=== PATIENT | male | born 1940 | race Caucasian/White ===

== ENCOUNTER 2016-08-31 10:10 | Day surgery (SDC) | payer OTHER, MEDICARE ==
[~2016-08-31 10:10] MED LIST: Lactated Ringers 1,000 ML IV SCH; ceFAZolin 2 GM in Premix Bag 1 BAG IV ONE
--- NOTE | 2016-08-31 11:42 | PCM.PREANE ---
Preanesthetic Assessment - Anesthesia/Transfusion/Family Hx Anesthesia History: Prior Anesthesia Without Reaction Family History of Anesthesia Reaction: No Transfusion History: No Prior Transfusion(s) - Review of Systems General: No Symptoms Pulmonary: No Symptoms Cardiovascular: No Symptoms Gastrointestinal: No symptoms Neurological: No Symptoms Other: Reports: None - Physical Assessment NPO Status Date: 08/30/16 NPO Status Time: 22:30 O2 Sat by Pulse Oximetry: 97 Respiratory Rate: 16 Vital Signs: Last Vital Signs Temp 36.8 C 08/31/16 10:20 Pulse 60 08/31/16 10:20 Resp 16 08/31/16 10:20 BP 141/66 H 08/31/16 10:20 Pulse Ox 97 08/31/16 10:20 Height: 1.78 m Weight: 103.419 kg ASA Class: 2 Mental Status: Alert & Oriented x3 Dentition: Reports: Normal Dentition Lungs: Clear to auscultation, Normal respiratory effort Cardiovascular: Regular Rate, Regular Rhythm - Allergies Allergies/Adverse Reactions: Allergies Allergy/AdvReac Type Severity Reaction Status Date / Time No Known Allergies Allergy Verified 08/26/16 11:41 - Blood Blood Available: No - Anesthesia Plan Pre-Op Medication Ordered: None - Acknowledgements Anesthesia Type Planned: General Anesthesia Pt an Appropriate Candidate for the Planned Anesthesia: Yes Alternatives and Risks of Anesthesia Discussed w Pt/Guardian: Yes Pt/Guardian Understands and Agrees with Anesthesia Plan: Yes Additional Comments: problem list: htn, glaucoma, GERD, JAQUAN (on CPAP x 1 month), seasonal allergies. PreAnesthesia Questionnaire - Past Health History Medical/Surgical History: Denies Medical/Surgical History HEENT History: Reports: Allergic Rhinitis, Glaucoma Other HEENT History: wears glasses Cardiovascular History: Reports: Hypertension Respiratory History: Reports: None Gastrointestinal History: Reports: None Other Genitourinary History: current bladder tumor Musculoskeletal History: Reports: Fracture Other Musculoskeletal History: hx of fx thumb Neurological History: Reports: None Psychiatric History: Reports: None Endocrine/Metabolic History: Reports: Obesity/BMI 30+ Hematologic History: Reports: None Immunologic History: Reports: None Oncologic (Cancer) History: Reports: None Dermatologic History: Reports: None - Past Surgical History Head Surgeries/Procedures: Reports: None HEENT Surgical History: Reports: None Cardiovascular Surgical History: Reports: None Respiratory Surgical History: Reports: None GI Surgical History: Reports: Appendectomy Male Surgical History: Reports: None Endocrine Surgical History: Reports: None Neurological Surgical History: Reports: None Musculoskeletal Surgical History: Reports: None Oncologic Surgical History: Reports: None Dermatological Surgical History: Reports: None - SUBSTANCE USE Smoking Status *Q: Former Smoker Second Hand Smoke Exposure: No Days Per Week of Alcohol Use: 0 Recreational Drug Use History: No - HOME MEDS Home Medications: Home Meds Ranitidine HCl [Ranitidine] 150 mg PO BEDTIME 09/12/14 [History] Triamterene/Hydrochlorothiazid [Triamterene-HCTZ 37.5-25 MG] 1 each PO DAILY 07/24 [History] amLODIPine [Norvasc] 10 mg PO DAILY 09/12/14 [History] Fish Oil/[place]-3 Fatty Acids [Fish Oil 1,000 MG] 1 gm PO BID 08/26/16 [History] Fluticasone Propionate [Flonase Allergy Relief] 1 spray NASBOTH DAILY 08/26/16 [ History] Latanoprost [Xalatan 0.005% Oph Soln] 1 drop EYEBOTH BEDTIME 08/26/16 [History ] traZODone HCl [Trazodone HCl] 50 mg PO BEDTIME PRN 08/26/16 [History] - CURRENT (IN HOUSE) MEDS Current Meds: Current Medications Lactated Ringer's (Ringers, Lactated) 1,000 mls @ 100 mls/hr IV ASDIRECTED [facility] Last Admin: 08/31/16 10:38 Dose: 100 mls/hr Discontinued Medications Cefazolin Sodium/Dextrose 2 gm (/ Premix) 50 mls @ 100 mls/hr IV ONCALL ONE Stop: 08/31/16 00:34
[2016-08-31] MEDS ORDERED: fentaNYL 250 MCG/5 ML SDV ONE (12:50)
[2016-08-31] MEDS ORDERED: Propofol 200 MG/20 ML SDV ONE (12:50)
[2016-08-31] MEDS ORDERED: Midazolam 1 MG/ML 2 ML SDV ONE (12:50)
[2016-08-31] MEDS ORDERED: Lidocaine 2% 5 ML SDV ONE (12:50)
[2016-08-31] MEDS ORDERED: fentaNYL 100 MCG/2 ML SDV IVPUSH PRN ×2 (14:00→14:58)
[2016-08-31] MEDS ORDERED: Belladonna Alkaloids/Opium 16.2-30 MG Supp RECTAL ONE (15:09)
--- NOTE | 2016-08-31 15:41 | PCM.POSTAN ---
POST ANESTHESIA ASSESSMENT - MENTAL STATUS Mental Status: alert, oriented - RESPIRATORY Respiratory Status: respiratory rate WNL, airway patent - CARDIOVASCULAR CV Status: pulse rate WNL, blood pressure stable - GASTROINTESTINAL GI Status: no symptoms - POST OP HYDRATION Hydration Status: adequate & stable
--- NOTE | 2016-08-31 16:45 | PCM48HPAN ---
Post Anesthesia Note - EVALUATION WITHIN 48HRS OF ANESTHETIC Vital Signs in Normal Range: Yes Patient Participated in Evaluation: Yes Respiratory Function Stable: Yes Airway Patent: Yes Cardiovascular Function Stable: Yes Hydration Status Stable: Yes Pain Control Satisfactory: Yes Nausea and Vomiting Control Satisfactory: Yes Mental Status Recovered: Yes
[2016-08-31 17:10] VITALS: BP 138/70
--- NOTE | 2016-08-31 21:36 | OR ---
SURGEON: Herson Guerra M.D. 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 POSTOPERATIVE DIAGNOSIS: Transitional cell carcinoma of the bladder. OPERATION: TURBT. DESCRIPTION OF PROCEDURE: The patient was given general anesthesia, placed in dorsal lithotomy position, prepped and draped in sterile drapes. The 26-Jordanian resectoscope was introduced in the bladder without difficulty. The tumor was resected in its entirety including some of the muscle base. The tumor spread over about 1/4th maybe the circumference of the bladder neck. It was affecting the bladder neck, but mostly behind it on the left side. It extended about 2 cm across in some places. The tumor was resected in its entirety. Specimen was submitted for additional investigation of the muscle. With that done, all bleeding points were fulgurated. All specimen was submitted and an 18-Jordanian Clay catheter was placed in the bladder. Estimated blood loss under 50 mL. PLAN: He will be sent home. He was instructed to remove the catheter in 3 days. I will see him again in one week. VU / LESLIE /[id number]
== END 2016-08-31 16:27 | disposition home or self-care (01) ==
LOC: MW.SDS 10:10
PROVIDERS: ATTEND Urology
DX: C67.9 Malignant neoplasm of bladder, unspecified (principal)
CPT/HCPCS: 52235; A9270; J2250; J3010; J7120; 00912; 88305; 88307; J2704

== ENCOUNTER 2017-02-25 08:33 | Day surgery (SDC) | payer MEDICARE, BC, OTHER ==
[~2017-02-25 08:33] MED LIST changes: +Bupivacaine 25%/EPINEPHrine/PF 30 ML ONE; +Dexamethasone/Tobramycin 0.1-0.3% Ophth Oint 3.5 GM Tube ONE; -Lactated Ringers 1,000 ML IV SCH; +Tetracaine 0.5% Ophth Soln 15 ML Bottle ONE; -ceFAZolin 2 GM in Premix Bag 1 BAG IV ONE
[2017-02-25] MEDS ORDERED: Bupivacaine 0.25%/EPINEPHrine 1:200,000 10 ML SDV INJECT ONE (09:00)
[2017-02-25] MEDS ORDERED: Dexamethasone/Tobramycin 0.1-0.3% Ophth Susp 2.5 ML Bottle EYEBOTH SCH (09:00)
[2017-02-25] MEDS ORDERED: Lactated Ringers 1,000 ML IV SCH (09:00)
[2017-02-25] MEDS ORDERED: ceFAZolin 2 GM in Premix Bag 1 BAG IV ONE (09:00)
--- NOTE | 2017-02-25 09:12 | PCM.PREANE ---
Preanesthetic Assessment - Anesthesia/Transfusion/Family Hx Anesthesia History: Prior Anesthesia Without Reaction Transfusion History: No Prior Transfusion(s) - Review of Systems General: No Symptoms Pulmonary: No Symptoms Cardiovascular: No Symptoms Gastrointestinal: No Symptoms Neurological: No Symptoms Other: Reports: None - Physical Assessment NPO Status Date: 02/25/17 NPO Status Time: 00:01 Height: 5 ft 10 in Weight: 102.058 kg ASA Class: 2 Mental Status: Alert & Oriented x3 Airway Class: Mallampati = 2 Dentition: Reports: Normal Dentition Thyro-Mental Finger Breadths: 3 Mouth Opening Finger Breadths: 3 ROM/Head Extension: Full Lungs: Clear to Auscultation, Normal Respiratory Effort Cardiovascular: Regular Rate, Regular Rhythm - Allergies Allergies/Adverse Reactions: Allergies Allergy/AdvReac Type Severity Reaction Status Date / Time No Known Allergies Allergy Verified 08/26/16 11:41 - Acknowledgements Anesthesia Type Planned: General Anesthesia, MAC Pt an Appropriate Candidate for the Planned Anesthesia: Yes Alternatives and Risks of Anesthesia Discussed w Pt/Guardian: Yes Pt/Guardian Understands and Agrees with Anesthesia Plan: Yes PreAnesthesia Questionnaire - Past Health History Medical/Surgical History: Denies Medical/Surgical History HEENT History: Reports: Allergic Rhinitis, Glaucoma Other HEENT History: wears glasses Cardiovascular History: Reports: Hypertension Respiratory History: Reports: Sleep Apnea Other Respiratory History: does not use CPAP Gastrointestinal History: Reports: GERD Other Genitourinary History: hx bladder cancer Musculoskeletal History: Reports: Fracture Other Musculoskeletal History: hx of fx thumb, left shoulder pain Neurological History: Reports: None Psychiatric History: Reports: None Endocrine/Metabolic History: Reports: Obesity/BMI 30+ Hematologic History: Reports: None Immunologic History: Reports: None Oncologic (Cancer) History: Reports: Bladder Dermatologic History: Reports: None - Past Surgical History Head Surgeries/Procedures: Reports: None HEENT Surgical History: Reports: None Cardiovascular Surgical History: Reports: None Respiratory Surgical History: Reports: None GI Surgical History: Reports: Appendectomy Male Surgical History: Reports: TURBT-Transurethral Resection of Bladder Tumor Endocrine Surgical History: Reports: None Neurological Surgical History: Reports: None Musculoskeletal Surgical History: Reports: None Oncologic Surgical History: Reports: None Dermatological Surgical History: Reports: None - SUBSTANCE USE Smoking Status *Q: Former Smoker Second Hand Smoke Exposure: No Days Per Week of Alcohol Use: 0 Recreational Drug Use History: No - HOME MEDS Home Medications: Home Meds Ranitidine HCl [Ranitidine] 150 mg PO BEDTIME 09/12/14 [History] Triamterene/Hydrochlorothiazid [Triamterene-HCTZ 37.5-25 MG] 1 each PO DAILY 07/24 [History] amLODIPine [Norvasc] 10 mg PO DAILY 09/12/14 [History] Fish Oil/[place]-3 Fatty Acids [Fish Oil 1,000 MG] 2 tab PO BID 08/26/16 [History] Latanoprost [Xalatan 0.005% Ophth Soln] 1 drop EYEBOTH BEDTIME 08/26/16 [History ] traZODone HCl [Trazodone HCl] 0.5 tab PO BEDTIME 08/26/16 [History] - CURRENT (IN HOUSE) MEDS Current Meds: Current Medications Cefazolin Sodium/Dextrose 2 gm (/ Premix) 50 mls @ 100 mls/hr IV ONETIME ONE Stop: 02/25/17 09:29 Lactated Ringer's (Ringers, Lactated) 1,000 mls @ 125 mls/hr IV ASDIRECTED [facility] Tobramycin/Dexamethasone (Tobradex Ophth Susp) 2 ml EYEBOTH Q4H YAJAIRA Discontinued Medications Bupivacaine HCl/Epinephrine Bitart (Marcaine 0.25%/Epinephrine 1:200,000) 10 ml INJECT ONETIME ONE Stop: 02/25/17 09:01 Bupivacaine HCl/Epinephrine Bitart (Sensorc Mpf 0.25%-Epi 1:[id number]) Confirm Administered Dose 30 mls @ as directed .ROUTE .STK-MED ONE Stop: 02/25/17 07:17 Tetracaine (Tetracaine 0.5% Ophth Soln) Confirm Administered Dose 15 ml .ROUTE .STK-MED ONE Stop: 02/25/17 08:22 Tobramycin/Dexamethasone (Tobradex Ophth Oint) Confirm Administered Dose 3.5 gm .ROUTE .STK-MED ONE Stop: 02/25/17 08:22
[2017-02-25] MEDS ORDERED: Propofol 200 MG/20 ML SDV ONE ×2 (10:14→10:15)
[2017-02-25] MEDS ORDERED: Lidocaine 2% 5 ML SDV ONE (10:15)
[2017-02-25] MEDS ORDERED: fentaNYL 100 MCG/2 ML SDV ONE (10:15)
[2017-02-25] MEDS ORDERED: Midazolam 1 MG/ML 2 ML SDV ONE (10:16)
[2017-02-25] MEDS ORDERED: fentaNYL 100 MCG/2 ML SDV IVPUSH PRN (11:31)
--- NOTE | 2017-02-25 11:33 | PCM.POSTAN ---
POST ANESTHESIA ASSESSMENT - MENTAL STATUS Mental Status: Alert, Oriented - VITAL SIGNS Pulse Rate: 71 SaO2: 95 (room air) Resp Rate: 18 Blood Pressure: 119/86 - RESPIRATORY Respiratory Status: Respiratory Rate WNL, Airway Patent, O2 Saturation Stable - CARDIOVASCULAR CV Status: Pulse Rate WNL, Blood Pressure Stable - GASTROINTESTINAL GI Status: No Symptoms - PAIN Pain Score: 0 - POST OP HYDRATION Hydration Status: Adequate & Stable
[2017-02-25 13:16] VITALS: BP 143/78
--- NOTE | 2017-03-01 16:52 | PCM.OPNOTE ---
- General Post-Op/Procedure Note Date of Surgery/Procedure: 02/25/17 Operative Procedure(s): bilateral blepharoplasties for excess skin Pre Op Diagnosis: dermatochalasis bilateral upper lids Post-Op Diagnosis: Same Anesthesia Technique: Local, MAC Primary Surgeon: Yumiko Jones Webbing Tacker: Rachel Oh Complications: None Condition: Good Free Text/Narrative:: [id number]
--- NOTE | 2017-03-01 20:59 | OR ---
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 PROCEDURE: Bilateral blepharoplasties for excess skin weighing down lids. PLUNKET NURSE: MEDINA Coon. INDICATIONS: Mr. Buckley is a 77-year-old male with bilateral upper lid dermatochalasis. Risks and benefits of excision of the excess skin were discussed with him. He has very good levator function on excursion. Risks were including, but not limited to, bleeding, infection, damage to underlying or overlying structures, possible need for future interventions, possible scarring. He was in agreement to proceed. PROCEDURE IN DETAIL: After informed consent was obtained and placed on the chart, the patient was brought to the operating theater and laid in the supine position. After adequate local MAC anesthetic was obtained, he was prepped and draped, and time- out was completed to confirm side and site. Once adequately confirmed, attention was then paid to marking of the upper eyelid skin excess. He had a significant amount of excess skin and 1.5 cm was removed bilaterally. Once adequately removed, marked, and pinch test had been completed to ensure appropriate tension upon removal. The area was anesthetized with 0.25% Marcaine with epinephrine in a field block. Once adequately anesthetized, the area was excised in an ellipse in standard fashion and meticulous hemostasis was obtained. Hemostasis of the underlying musculature for contraction was also completed. Once this was completed, the wound was closed using a deep Monocryl stitch and a running 6-0 Prolene for the skin. Steri-strips was placed. The area was dressed with TobraDex liquid. The patient tolerated the procedure well. All counts and needles were correct at the end of the case. FOLLOWUP INSTRUCTIONS: The patient will see us in clinic in 7 to 10 days for suture removal, sooner if there are any problems, questions, or concerns. HEGGTFELIX / LESLIE /[id number]
== END 2017-02-25 12:25 | disposition home or self-care (01) ==
LOC: MW.SDS 08:33
PROVIDERS: ATTEND Plastic Surgery
DX: H02.831 Dermatochalasis of right upper eyelid (principal); H02.834 Dermatochalasis of left upper eyelid; I10 Essential (primary) hypertension; G47.30 Sleep apnea, unspecified; K21.9 Gastro-esophageal reflux disease without esophagitis; E66.9 Obesity, unspecified; Z68.32 Body mass index [BMI] 32.0-32.9, adult; Z98.890 Other specified postprocedural states; Z85.51 Personal history of malignant neoplasm of bladder; Z87.891 Personal history of nicotine dependence; Z79.51 Long term (current) use of inhaled steroids; Z79.899 Other long term (current) drug therapy
CPT/HCPCS: 15823; 93005; A9270; J2250; J3010; J7120; 00103; J2704

== ENCOUNTER 2017-05-03 07:54 | Day surgery (SDC) | payer OTHER, MEDICARE, BC ==
[~2017-05-03 07:54] MED LIST changes: -Bupivacaine 25%/EPINEPHrine/PF 30 ML ONE; -Dexamethasone/Tobramycin 0.1-0.3% Ophth Oint 3.5 GM Tube ONE; +Lactated Ringers 1,000 ML IV SCH; +Sodium Chloride 0.9% 10 ML Syringe FLUSH PRN; +Sodium Chloride 0.9% 2.5 ML Syringe FLUSH PRN; -Tetracaine 0.5% Ophth Soln 15 ML Bottle ONE; +ceFAZolin 2 GM in Premix Bag 1 BAG IV ONE
--- NOTE | 2017-05-03 08:22 | PCM.PREANE ---
Preanesthetic Assessment - Anesthesia/Transfusion/Family Hx Anesthesia History: Prior Anesthesia Without Reaction Family History of Anesthesia Reaction: No Transfusion History: No Prior Transfusion(s) - Review of Systems General: No Symptoms Pulmonary: No Symptoms Cardiovascular: No Symptoms Gastrointestinal: No Symptoms Neurological: No Symptoms Other: Reports: None - Physical Assessment NPO Status Date: 05/02/17 Height: 1.78 m Weight: 107.048 kg ASA Class: 2 Mental Status: Alert & Oriented x3 Airway Class: Mallampati = 1 Dentition: Reports: [place](s) ROM/Head Extension: Full Lungs: Clear to Auscultation, Normal Respiratory Effort Cardiovascular: Regular Rate, Regular Rhythm - Allergies Allergies/Adverse Reactions: Allergies Allergy/AdvReac Type Severity Reaction Status Date / Time No Known Allergies Allergy Verified 08/26/16 11:41 - Anesthesia Plan Pre-Op Medication Ordered: None - Acknowledgements Anesthesia Type Planned: General Anesthesia Pt an Appropriate Candidate for the Planned Anesthesia: Yes Alternatives and Risks of Anesthesia Discussed w Pt/Guardian: Yes Pt/Guardian Understands and Agrees with Anesthesia Plan: Yes Additional Comments: PMH: significant GERD, HTN, Glaucoma PreAnesthesia Questionnaire - Past Health History Medical/Surgical History: Denies Medical/Surgical History HEENT History: Reports: Allergic Rhinitis, Glaucoma Other HEENT History: wears glasses Cardiovascular History: Reports: Hypertension Respiratory History: Reports: Sleep Apnea Other Respiratory History: does not use CPAP Gastrointestinal History: Reports: GERD Genitourinary History: Reports: Other (See Below) Other Genitourinary History: hx bladder cancer Musculoskeletal History: Reports: Arthritis, Fracture Other Musculoskeletal History: hx of fx thumb, left shoulder pain Neurological History: Reports: None Psychiatric History: Reports: None Endocrine/Metabolic History: Reports: Obesity/BMI 30+ Hematologic History: Reports: None Immunologic History: Reports: None Oncologic (Cancer) History: Reports: Bladder Dermatologic History: Reports: None - Past Surgical History Head Surgeries/Procedures: Reports: None HEENT Surgical History: Reports: None, Cataract Surgery Other HEENT Surgeries/Procedures: hx blepharoplasty and cataract surgery Cardiovascular Surgical History: Reports: None Respiratory Surgical History: Reports: None GI Surgical History: Reports: Appendectomy Male Surgical History: Reports: TURBT-Transurethral Resection of Bladder Tumor Endocrine Surgical History: Reports: None Neurological Surgical History: Reports: None Musculoskeletal Surgical History: Reports: None Oncologic Surgical History: Reports: None Dermatological Surgical History: Reports: None - SUBSTANCE USE Smoking Status *Q: Former Smoker Second Hand Smoke Exposure: No Days Per Week of Alcohol Use: 0 Recreational Drug Use History: No - HOME MEDS Home Medications: Home Meds Ranitidine HCl [Ranitidine] 150 mg PO BEDTIME 09/12/14 [History] Triamterene/Hydrochlorothiazid [Triamterene-HCTZ 37.5-25 MG] 1 each PO DAILY 07/24 [History] amLODIPine [Norvasc] 10 mg PO DAILY 09/12/14 [History] Fish Oil/[place]-3 Fatty Acids [Fish Oil 1,000 MG] 2 tab PO BID 08/26/16 [History] Latanoprost [Xalatan 0.005% Oph Soln] 1 drop EYEBOTH BEDTIME 08/26/16 [History ] traZODone HCl [Trazodone HCl] 0.5 tab PO BEDTIME 08/26/16 [History] - CURRENT (IN HOUSE) MEDS Current Meds: Current Medications Lactated Ringer's (Ringers, Lactated) 1,000 mls @ 100 mls/hr IV ASDIRECTED [facility]A Sodium Chloride (Saline Flush) 10 ml FLUSH ASDIRECTED PRN PRN Reason: Keep Vein Open Sodium Chloride (Saline Flush) 2.5 ml FLUSH ASDIRECTED PRN PRN Reason: Keep Vein Open Discontinued Medications Cefazolin Sodium/Dextrose 2 gm (/ Premix) 50 mls @ 100 mls/hr IV ONETIME ONE Stop: 05/03/17 07:29
[2017-05-03] MEDS ORDERED: Propofol 200 MG/20 ML SDV ONE ×2 (09:43→09:52)
[2017-05-03] MEDS ORDERED: Midazolam 1 MG/ML 2 ML SDV ONE (09:43)
[2017-05-03] MEDS ORDERED: Lidocaine 2% 5 ML SDV ONE (09:43)
[2017-05-03] MEDS ORDERED: fentaNYL 250 MCG/5 ML SDV ONE (09:43)
[2017-05-03] MEDS ORDERED: Ketorolac 30 MG/ML SDV ONE (09:44)
[2017-05-03] MEDS ORDERED: Ondansetron 4 MG/2 ML SDV ONE (09:44)
[2017-05-03] MEDS ORDERED: fentaNYL 100 MCG/2 ML SDV IVPUSH PRN (11:00)
--- NOTE | 2017-05-03 12:20 | PCM.POSTAN ---
POST ANESTHESIA ASSESSMENT - MENTAL STATUS Mental Status: Alert, Oriented - RESPIRATORY Respiratory Status: Respiratory Rate WNL, Airway Patent, O2 Saturation Stable - CARDIOVASCULAR CV Status: Pulse Rate WNL, Blood Pressure Stable - GASTROINTESTINAL GI Status: No Symptoms - POST OP HYDRATION Hydration Status: Adequate & Stable
[2017-05-03 12:35] VITALS: BP 154/73
--- NOTE | 2017-05-12 21:17 | OR ---
SURGEON: Herson Guerra M.D. DATE OF PROCEDURE: 05/03/2017 PREOPERATIVE DIAGNOSIS: Multiple papillary bladder tumors. POSTOPERATIVE DIAGNOSIS: Multiple papillary bladder tumors. OPERATION PERFORMED: TURBT. DESCRIPTION OF PROCEDURE: The patient was given general anesthesia, was placed in dorsal lithotomy position, prepped and draped in sterile drapes. A #26 resectoscope was introduced in the bladder without difficulty. All the tumors were resected, and the specimen was submitted. The patient tolerated the procedure well and was moved to recovery room in good condition. VU / LESLIE /[id number]
--- NOTE | 2017-06-14 14:09 | OR ---
SURGEON: Herson Guerra M.D. DATE OF PROCEDURE: 05/03/2017 ADDENDUM: The size of the tumor was large, and the margins were clear. VU / LESLIE /[id number]
== END 2017-05-03 12:49 | disposition home or self-care (01) ==
LOC: MW.SDS 07:54
PROVIDERS: ATTEND Urology
DX: D41.4 Neoplasm of uncertain behavior of bladder (principal); I10 Essential (primary) hypertension; Z79.899 Other long term (current) drug therapy; Z90.49 Acquired absence of other specified parts of digestive tract
CPT/HCPCS: 52240; J0690; J1885; J2250; J2405; J3010; 00912; J2704

== ENCOUNTER 2017-08-04 08:42 | Day surgery (SDC) | payer MEDICARE, BC, OTHER ==
[2017-08-04] MEDS ORDERED: Heparin Sodium 100 Units/ML 3 ML Syringe IVPUSH ONE (08:43)
--- NOTE | 2017-08-04 09:23 | PCM.PREANE ---
Preanesthetic Assessment - Anesthesia/Transfusion/Family Hx Anesthesia History: Prior Anesthesia Without Reaction Family History of Anesthesia Reaction: No Transfusion History: No Prior Transfusion(s) - Review of Systems General: No Symptoms Pulmonary: No Symptoms Cardiovascular: No Symptoms Gastrointestinal: No Symptoms Neurological: No Symptoms Other: Reports: None - Physical Assessment NPO Status Date: 08/03/17 NPO Status Time: 20:00 O2 Sat by Pulse Oximetry: 95 Respiratory Rate: 16 Vital Signs: Last Vital Signs Temp 36.1 C 08/04/17 08:50 Pulse 98 08/04/17 08:50 Resp 16 08/04/17 08:50 BP 164/91 H 08/04/17 08:50 Pulse Ox 95 08/04/17 08:50 Height: 1.75 m Weight: 97.976 kg ASA Class: 2 Mental Status: Alert & Oriented x3 Dentition: Reports: Normal Dentition ROM/Head Extension: Full Lungs: Clear to Auscultation, Normal Respiratory Effort Cardiovascular: Regular Rate, Regular Rhythm - Allergies Allergies/Adverse Reactions: Allergies Allergy/AdvReac Type Severity Reaction Status Date / Time No Known Allergies Allergy Verified 08/02/17 10:18 - Anesthesia Plan Pre-Op Medication Ordered: None - Acknowledgements Anesthesia Type Planned: MAC Pt an Appropriate Candidate for the Planned Anesthesia: Yes Alternatives and Risks of Anesthesia Discussed w Pt/Guardian: Yes Pt/Guardian Understands and Agrees with Anesthesia Plan: Yes PreAnesthesia Questionnaire - Past Health History Medical/Surgical History: Denies Medical/Surgical History HEENT History: Reports: Cataract, Glaucoma Other HEENT History: wears glasses Cardiovascular History: Reports: Hypertension Respiratory History: Reports: Sleep Apnea Other Respiratory History: does not use CPAP Gastrointestinal History: Reports: GERD Genitourinary History: Reports: Other (See Below) Other Genitourinary History: hx of bladder tumor Musculoskeletal History: Reports: Arthritis, Fracture Other Musculoskeletal History: hx of fx thumb, left shoulder pain Neurological History: Reports: None Psychiatric History: Reports: None Endocrine/Metabolic History: Reports: Obesity/BMI 30+ Hematologic History: Reports: None Immunologic History: Reports: None Oncologic (Cancer) History: Reports: Bladder Dermatologic History: Reports: None - Past Surgical History Head Surgeries/Procedures: Reports: None HEENT Surgical History: Reports: Cataract Surgery, Other (See Below) Other HEENT Surgeries/Procedures: hx of Blepharoplasty Cardiovascular Surgical History: Reports: None Respiratory Surgical History: Reports: None GI Surgical History: Reports: Appendectomy Male Surgical History: Reports: TURBT-Transurethral Resection of Bladder Tumor Endocrine Surgical History: Reports: None Neurological Surgical History: Reports: None Musculoskeletal Surgical History: Reports: None Oncologic Surgical History: Reports: None Dermatological Surgical History: Reports: None - SUBSTANCE USE Smoking Status *Q: Former Smoker Tobacco Use Within Last Twelve Months: No Second Hand Smoke Exposure: No Days Per Week of Alcohol Use: 0 Recreational Drug Use History: No - HOME MEDS Home Medications: Home Meds Ranitidine HCl [Ranitidine] 150 mg PO BEDTIME 09/12/14 [History] Triamterene/Hydrochlorothiazid [Triamterene-HCTZ 37.5-25 MG] 1 each PO DAILY 07/24 [History] amLODIPine [Norvasc] 10 mg PO DAILY 09/12/14 [History] Fish Oil/[place]-3 Fatty Acids [Fish Oil 1,000 MG] 1 tab PO BID 08/26/16 [History] Latanoprost [Xalatan 0.005% Ophth Soln] 1 drop EYEBOTH BEDTIME 08/26/16 [History ] traZODone HCl [Trazodone HCl] 25 mg PO BEDTIME PRN 08/26/16 [History] - CURRENT (IN HOUSE) MEDS Current Meds: Current Medications Lactated Ringer's (Ringers, Lactated) 1,000 mls @ 125 mls/hr IV ASDIRECTED [facility] Sodium Chloride (Saline Flush) 10 ml FLUSH ASDIRECTED PRN PRN Reason: Keep Vein Open Sodium Chloride (Saline Flush) 2.5 ml FLUSH ASDIRECTED PRN PRN Reason: Keep Vein Open Discontinued Medications Cefazolin Sodium/Dextrose 2 gm (/ Premix) 50 mls @ 100 mls/hr IV ONETIME ONE Stop: 08/03/17 09:19
[2017-08-04] MEDS ORDERED: Propofol 200 MG/20 ML SDV ONE (09:27)
[2017-08-04] MEDS ORDERED: Lidocaine 2% 5 ML SDV ONE (09:27)
[2017-08-04] MEDS ORDERED: fentaNYL 100 MCG/2 ML SDV ONE (09:27)
[2017-08-04] MEDS ORDERED: Midazolam 1 MG/ML 2 ML SDV ONE (09:27)
[2017-08-04] MEDS ORDERED: Lidocaine 1% 20 ML MDV ONE (10:21)
[2017-08-04] MEDS ORDERED: Bupivacaine 0.5% 10 ML SDV ONE (10:21)
[2017-08-04] MEDS ORDERED: Iopamidol 408 MG/ML 50 ML SDV ONE (10:22)
[2017-08-04] MEDS ORDERED: ceFAZolin/Dextrose,Iso-Osmotic 2 GM/50 ML Duplex Bag IV ONE (10:28)
[2017-08-04] MEDS ORDERED: fentaNYL 100 MCG/2 ML SDV IVPUSH PRN (11:18)
[2017-08-04] MEDS ORDERED: Ondansetron 4 MG/2 ML SDV ONE (11:20)
[2017-08-04] MEDS ORDERED: Ketorolac 30 MG/ML SDV ONE (11:20)
--- NOTE | 2017-08-04 11:42 | PCM.OPNOTE ---
- General Post-Op/Procedure Note Date of Surgery/Procedure: 08/04/17 Operative Procedure(s): Right internal jugular port a cath placement Findings: Right internal jugular port a cath placement Pre Op Diagnosis: Transitional cell carcinoma Post-Op Diagnosis: same Anesthesia Technique: General LMA Primary Surgeon: Carmina Sethi Fluid Replacement, Intraop: 800 EBL in mLs: 10 Condition: Good
--- NOTE | 2017-08-04 12:50 | CR ---
EXAMINATION: Portable chest radiograph. HISTORY: Port-A-Cath placement. FINDINGS: The trachea is midline. The cardiomediastinal silhouette is within normal limits. No pulmonary infilt rates, effusions or pneumothorax. Right-sided portacatheter noted with tip in the distal SVC. Mild le ft basilar atelectasis. Medial left scapular margin is not well identified. IMPRESSION: Right-sided portacatheter in good position.
[2017-08-04 13:05] VITALS: BP 140/71
--- NOTE | 2017-08-04 13:49 | PCM48HPAN ---
Post Anesthesia Note - EVALUATION WITHIN 48HRS OF ANESTHETIC Vital Signs in Normal Range: Yes Patient Participated in Evaluation: Yes Respiratory Function Stable: Yes Airway Patent: Yes Cardiovascular Function Stable: Yes Hydration Status Stable: Yes Pain Control Satisfactory: Yes Nausea and Vomiting Control Satisfactory: Yes Mental Status Recovered: Yes Resp Rate: 16
--- NOTE | 2017-08-04 15:05 | OR ---
SURGEON: RIVER CONCEPCION MD DATE OF PROCEDURE: 08/04/2017 PREOPERATIVE DIAGNOSIS: Transitional cell carcinoma of the bladder. POSTOPERATIVE DIAGNOSIS: Transitional cell carcinoma of the bladder. PROCEDURE PERFORMED: Right internal jugular Port-A-Cath placement. ANESTHESIA: General LMA. FLUIDS: 800 mL crystalloid. ESTIMATED BLOOD LOSS: 10 mL. FINDINGS: Right internal jugular Port-A-Cath placement. COMPLICATIONS: None. INDICATIONS: The patient is a 77-year-old male, who presents with transitional cell carcinoma. He has undergone surgery for this and is now undergoing radiation and chemotherapy treatment. He is in need of permanent access. We discussed the need for a Port-A-Cath. I explained the procedure, expected perioperative course, and risks including bleeding, infection, damage to surrounding structures including hemothorax, pneumothorax, or hemopericardium. The patient verbalized understanding and wishes to proceed. PROCEDURE IN DETAIL: The patient was brought into the operating room and placed on the OR table in supine position. A time-out was completed verifying the patient's name, age, date of , allergies, and procedure to be performed. General LMA anesthesia was induced. An ultrasound probe was used to verify the vascular anatomy of the right side of the neck. I identified the right internal jugular vein and the associated right carotid artery. The neck and right chest were prepped and draped in usual standard fashion. I then reverified my anatomy using a sterile ultrasound probe. The area overlying the right internal jugular vein was anesthetized with 1% lidocaine plain. I anesthetized the catheter tract and port site on the anterior right chest as well. A large bore needle was then placed under direct visualization into the right internal jugular vein. A brisk return of venous blood was noted. A guidewire was then placed down the needle into the superior vena cava. The needle was then removed, and the placement of the guidewire was verified using x-ray. I then turned my attention to the right anterior chest. A 3 cm incision was made along the right anterior chest wall 2 fingerbreadths below the lateral clavicle. Cautery was used to dissect down the level of chest wall and create a subcutaneous pocket. Hemostasis was achieved with cautery. The catheter tubing was then tunneled from the subcutaneous port site up to the insertion site of the guidewire on the right neck. A vascular sheath and dilator were then placed over the guidewire and then dilated over the guidewire under fluoroscopic guidance. Once this was in an appropriate position, the internal dilator and guidewire were removed leaving the vascular sheath in place. The catheter tubing was then placed through the vascular sheath into the superior vena cava. The vascular sheath was then peeled away. Fluoroscopic guidance was used to ensure that the tip of the catheter was in the SVC. The catheter tubing was aspirated and a good return of venous blood was noted. The catheter tubing was then flushed with injectable saline. The catheter tubing was then trimmed to size and placed on the Port-A-Cath device. The Port-A-Cath was then placed in the subcutaneous pocket and secured using 3-0 Prolene stitches on either side of it. The Port-A-Cath device was then aspirated with a good return of venous blood. It was locked with 3 mL of heparinized saline. The site was then closed with a running 3-0 Vicryl stitch in the subcutaneous fat layer and the skin was closed with a running 4-0 Monocryl stitch. Steri-Strips and sterile dressings were applied. The neck insertion site was then closed with an interrupted 4-0 Monocryl. Steri-Strips and sterile dressings were applied. The patient tolerated the procedure well and was taken to PACU in stable condition. A postoperative chest x-ray showed good placement. SE NELSON /[id number] MTDSharri
== END 2017-08-04 13:15 | disposition home or self-care (01) ==
LOC: MW.SDS 08:42
PROVIDERS: ATTEND Surgery
DX: C67.9 Malignant neoplasm of bladder, unspecified (principal); J30.9 Allergic rhinitis, unspecified; M19.012 Primary osteoarthritis, left shoulder; I10 Essential (primary) hypertension; G47.30 Sleep apnea, unspecified; K21.9 Gastro-esophageal reflux disease without esophagitis; E66.9 Obesity, unspecified; Z68.31 Body mass index [BMI] 31.0-31.9, adult; Z98.890 Other specified postprocedural states; Z79.899 Other long term (current) drug therapy; Z90.49 Acquired absence of other specified parts of digestive tract; Z87.891 Personal history of nicotine dependence
CPT/HCPCS: 36561; 71045; 76000; J0690; J1642; J2250; J2405; J3010; J7120; J1885; J2704; Q9966

== ENCOUNTER 2017-08-19 23:55 | Emergency (ER) | payer MEDICARE, BC ==
--- NOTE | 2017-08-20 | EDM.PDOC ---
ED HPI GENERAL MEDICAL PROBLEM - General Stated Complaint: POSSIBLE DEHYDRATION Time Seen by Provider: 08/19/17 23:55 - History of Present Illness INITIAL COMMENTS - FREE TEXT/NARRATIVE: HISTORY AND PHYSICAL: History of present illness: The patient is a 69-year-old male who arrives by EMS with a history of hypertension and transitional cell carcinoma of the bladder was followed in our oncology clinic and called for transport here because of feeling like he is dehydrated. The patient tells me he has had nausea and increased phlegm in his mouth which he thinks is thick throughout the day today since he had his platelet transfusion this morning. He says he has had intermittent nausea and some dry heaves but no vomiting. He says he has not been able to eat or drink anything throughout the day today which is why he thinks he is dehydrated. He had a low-grade temperature at home of 100.2 but he has not had a cough chest pain or shortness of breath and no abdominal pain diarrhea or urinary complaints. He tells me that for his cancer he has had 2 bladder surgeries but they were not able to completely remove the tumor and he is just started radiation therapy to his left scapula as well as chemotherapy but he is unsure of the last time he had chemotherapy. The patient tells me he is very thirsty but he says it hurts when he swallows and he has the phlegm which is why he is not swallowing fluids or food. He says that the discomfort with swallowing and the phlegm only started today. When asked him about his progressive decline in hemoglobin said that they did not tell him he would need to get another transfusion. The patient says that he had these symptoms when he was at the oncology center today but they were not as bad and they were aware of this. The patient has had blood work here at our facility on August 10, August 15, August 16, and August 18 which showed a progressive decline in his hemoglobin from 14.5to 9.5 and his platelets from 201 to 15. The patient says he was contacted earlier today to come in and receive a transfusion of platelets which I see documented in the computer. Patient also had a low potassium on 15 August at 2.4 but corrected per labs from yesterday. Patient tells nursing that he had a fever while he was in the oncology center and was given medication for that. Patient also had recent imaging performed July [address] scan of the chest abdomen and pelvis and a bone scan which I have reviewed. It demonstrates extensive metastases to the left scapular as well as a tiny focus in the left lateral 11th rib but no other masses appreciated. Please note that the patient is currently on Diflucan therapy but he is not clear as to why he was placed on that. Review of systems: As per history of present illness and below otherwise all systems reviewed and negative. Past medical history: As per history of present illness and as reviewed below otherwise noncontributory. Surgical history: As per history of present illness and as reviewed below otherwise noncontributory. Social history: No reported history of drug or alcohol abuse. Family history: As per history of present illness and as reviewed below otherwise noncontributory. Physical exam: General: Well-developed well-nourished overweight male who is nontoxic and speaking clearly but intermittently is dry heaving on my evaluation. Most of what he is producing looks saliva or phlegm-like and is clear and slightly white in color and mucousy in character. His speech is intact and it is not muffled hoarse and he is not breathless he is not drooling HEENT: Atraumatic, normocephalic, pupils reactive, negative for conjunctival pallor or scleral icterus, mucous membranes moist, throat clear and there is no erythema swelling or abnormality seen in the posterior oropharynx and oral cavity, uvula is midline, there is no cervical adenopathy or nuchal rigidity,, neck supple, nontender, trachea midline. Lungs: Clear to auscultation, breath sounds equal bilaterally, chest nontender. No work of breathing stridor or wheezing appreciated and good air exchange. At the posterior left scapular area there is diffuse erythema and a small area of excoriation consistent with his recent radiation therapy to this region Heart: S1S2, regular, negative for clicks, rubs, or JVD. Abdomen: Soft, nondistended, nontender. Negative for masses or hepatosplenomegaly. Negative for costovertebral tenderness. Bowel sounds are hypoactive and there is no tympany on percussion Pelvis: Stable nontender. Genitourinary: Deferred. Rectal: Deferred. Extremities: Atraumatic, negative for cords or calf pain. Neurovascular unremarkable. Full range of motion without defects or deficits Neuro: Awake, alert, oriented. Cranial nerves II through XII unremarkable. Cerebellum unremarkable. Motor and sensory unremarkable throughout. Exam nonfocal. Diagnostics: CBC CMP amylase lipase INR UA urine culture blood cultures 2 lactic acid magnesium level soft tissue neck and chest x-ray Therapeutics: Port access IV fluids Zofran GI cocktail Protonix clindamycin Rocephin Decadron Patient drink the GI cocktail and tolerated it without difficulty. 0203 and 0213: Case was discussed with Dr. Peoples the ENT on-call at [facility] in [place]. I have sent him a picture of the patient's x-ray and he has reviewed it. He does feel like the patient does have a mild case of epiglottitis but he does not feel that there is any airway compromise and he would like me to give Decadron and Rocephin and clindamycin and transfer the patient to [place]. He does not feel that the patient needs to be flown and can go by ground ambulance. I've also discussed this case with Dr. Gaytan in the ER who also accepts the patient I discussed all these findings with the patient and the need for transfer and he is accepting of this. All cultures have been sent off and the patient is currently afebrile and resting comfortably handling his secretions. He is aware of the need for this emergent transfer. It is also noted in his workup that he has a UTI and a urine culture was sent and the [employer] that he is receiving , Rocephin, should cover his UTI. Receiving physicians at [facility] are also aware that I am unable to access the cancer center records to identify when the patient last had chemotherapy. 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 throat Pain Score (Numeric/FACES): 7 - Related Data Allergies Allergy/AdvReac Type Severity Reaction Status Date / Time No Known Allergies Allergy Verified 08/20/17 00:03 Home Meds: Home Meds Triamterene/Hydrochlorothiazid [Triamterene-HCTZ 37.5-25 MG] 1 each PO DAILY 07/24 [History] Fish Oil/[place]-3 Fatty Acids [Fish Oil 1,000 MG] 1 tab PO BID 08/26/16 [History] Latanoprost [Xalatan 0.005% Ophth Soln] 1 drop EYEBOTH BEDTIME 08/26/16 [History ] traZODone HCl [Trazodone HCl] 25 mg PO BEDTIME PRN 08/26/16 [History] Fluconazole [Diflucan] 50 mg PO DAILY 08/20/17 [History] Past Medical History - Past Health History Medical/Surgical History: Denies Medical/Surgical History HEENT History: Reports: Cataract, Glaucoma Other HEENT History: wears glasses Cardiovascular History: Reports: Hypertension Respiratory History: Reports: Sleep Apnea Other Respiratory History: does not use CPAP Gastrointestinal History: Reports: GERD Genitourinary History: Reports: Other (See Below) Other Genitourinary History: hx of bladder tumor Musculoskeletal History: Reports: Arthritis, Fracture Other Musculoskeletal History: hx of fx thumb, left shoulder pain Neurological History: Reports: None Psychiatric History: Reports: None Endocrine/Metabolic History: Reports: Obesity/BMI 30+ Hematologic History: Reports: None Immunologic History: Reports: None Oncologic (Cancer) History: Reports: Bladder Dermatologic History: Reports: None - Past Surgical History Head Surgeries/Procedures: Reports: None HEENT Surgical History: Reports: Cataract Surgery, Other (See Below) Other HEENT Surgeries/Procedures: hx of Blepharoplasty Cardiovascular Surgical History: Reports: None Respiratory Surgical History: Reports: None GI Surgical History: Reports: Appendectomy Male Surgical History: Reports: TURBT-Transurethral Resection of Bladder Tumor Endocrine Surgical History: Reports: None Neurological Surgical History: Reports: None Musculoskeletal Surgical History: Reports: None Oncologic Surgical History: Reports: None Dermatological Surgical History: Reports: None Social & Family History - Caffeine Use Caffeine Use: Reports: Coffee, Soda ED ROS GENERAL - Review of Systems Review Of Systems: ROS reveals no pertinent complaints other than HPI. ED EXAM, GENERAL - Physical Exam Exam: See Below (See dictation) Course - Vital Signs Last Recorded V/S: Last Vital Signs Temp 38.0 C 08/20/17 02:12 Pulse 90 08/20/17 02:12 Resp 18 08/20/17 02:12 BP 121/63 08/20/17 02:12 Pulse Ox 92 L 08/20/17 02:12 - Orders/Labs/Meds Orders: Active Orders 24 hr Category Date Time Status Communication Order [RC] STAT Care 08/20/17 01:35 Active Chest 2V [CR] Stat Exams 08/20/17 00:11 Taken Neck Soft Tissue [CR] Stat Exams 08/20/17 00:11 Taken CULTURE BLOOD [BC] Stat Lab 08/20/17 00:31 Received CULTURE BLOOD [BC] Stat Lab 08/20/17 00:45 Received CULTURE URINE [RM] Stat Lab 08/20/17 01:43 Ordered UA W/MICROSCOPIC [URIN] Stat Lab 08/20/17 01:38 Ordered Clindamycin Phosphate in D5W [Cleocin in D5W] 900 mg Med 08/20/17 02:24 Ordered Premix Bag 1 bag IV ONETIME Sodium Chloride 0.9% [Normal Saline] 1,000 ml Med 08/20/17 01:58 Active IV .Bolus cefTRIAXone [Rocephin in Dextrose,Iso-Osm 2 GM/50 ML] 2 Med 08/20/17 02:24 Ordered gm Premix Bag 1 bag IV ONETIME Blood Culture x2 Reflex Set [OM.PC] Stat Oth 08/20/17 00:11 Ordered Medication Orders Sodium Chloride (Normal Saline) 1,000 mls @ 125 mls/hr IV .Bolus ONE Stop: 08/20/17 09:57 Last Admin: 08/20/17 01:59 Dose: 125 mls/hr Ceftriaxone Sodium/Dextrose 2 (gm/ Premix) 50 mls @ 100 mls/hr IV ONETIME ONE Stop: 08/20/17 02:53 Clindamycin Phosphate 900 mg/ (Premix) 50 mls @ 100 mls/hr IV ONETIME ONE Stop: 08/20/17 02:53 Labs: Laboratory Tests 08/20/17 08/20/17 08/20/17 Range/Units 00:31 00:31 00:31 WBC 0.67 L (4.0-11.0) K/uL RBC 2.86 L (4.50-5.90) M/uL Hgb 8.1 L (13.0-17.0) g/dL Hct 23.7 L (38.0-50.0) % MCV 82.9 (80.0-98.0) fL MCH 28.3 (27.0-32.0) pg MCHC 34.2 (31.0-37.0) g/dL RDW Std Deviation 39.1 (28.0-62.0) fl RDW Coeff of [place] 13 (11.0-15.0) % Plt Count 67 L (150-400) K/uL MPV 10.10 (7.40-12.00) fL Add Manual Diff YES Neutrophils % (Manual) 55 (48.0-80.0) % Band Neutrophils % 1 % Lymphocytes % (Manual) 37 (16.0-40.0) % Monocytes % (Manual) 7 (0.0-15.0) % Nucleated RBC % 0.0 /100WBC Absolute Seg Neuts 0.4 L (1.4-5.7) Band Neutrophils # 0 Lymphocytes # (Manual) 0.2 L (0.6-2.4) Monocytes # (Manual) 0.0 (0.0-0.8) Nucleated RBCs # 0 K/uL INR 1.08 Lactate 1.3 (0.20-2.00) mmol/L Sodium (136-148) mmol/L Potassium (3.5-5.1) mmol/L Chloride (98-107) mmol/L Carbon Dioxide (21.0-32.0) mmol/L BUN (7.0-18.0) mg/dL Creatinine (0.8-1.3) mg/dL Est Cr Clr Drug Dosing mL/min Estimated GFR (MDRD) ml/min Glucose (74-106) mg/dL Calcium (8.5-10.1) mg/dL Magnesium (1.5-2.0) mg/dL Total Bilirubin (0.2-1.0) mg/dL AST (15-37) IU/L ALT (14-63) IU/L Alkaline Phosphatase (46-116) U/L Total Protein (6.4-8.2) g/dL Albumin (3.4-5.0) g/dL Globulin (2.0-3.5) g/dL Albumin/Globulin Ratio (1.3-2.8) Amylase (25-115) U/L Lipase (73-393) U/L Urine Color Urine Appearance Urine pH (5.0-8.0) Ur Specific [place] (1.001-1.035) Urine Protein (NEGATIVE) mg/dL Urine Glucose (UA) (NEGATIVE) mg/dL Urine Ketones (NEGATIVE) mg/dL Urine Occult Blood (NEGATIVE) Urine Nitrite (NEGATIVE) Urine Bilirubin (NEGATIVE) Urine Urobilinogen (<2.0) EU/dL Ur Leukocyte Esterase (NEGATIVE) Urine RBC (0-2/HPF) Urine WBC (0-5/HPF) Ur Epithelial Cells (NONE-FEW) Ur Renal Epithelial Cell Urine Bacteria (NEGATIVE) RBC Casts (NEGATIVE) Blood Type Antibody Screen 08/20/17 08/20/17 08/20/17 Range/Units 00:31 00:31 01:38 WBC (4.0-11.0) K/uL RBC (4.50-5.90) M/uL Hgb (13.0-17.0) g/dL Hct (38.0-50.0) % MCV (80.0-98.0) fL MCH (27.0-32.0) pg MCHC (31.0-37.0) g/dL RDW Std Deviation (28.0-62.0) fl RDW Coeff of [place] (11.0-15.0) % Plt Count (150-400) K/uL MPV (7.40-12.00) fL Add Manual Diff Neutrophils % (Manual) (48.0-80.0) % Band Neutrophils % % Lymphocytes % (Manual) (16.0-40.0) % Monocytes % (Manual) (0.0-15.0) % Nucleated RBC % /100WBC Absolute Seg Neuts (1.4-5.7) Band Neutrophils # Lymphocytes # (Manual) (0.6-2.4) Monocytes # (Manual) (0.0-0.8) Nucleated RBCs # K/uL INR Lactate (0.20-2.00) mmol/L Sodium 138 (136-148) mmol/L Potassium 3.6 (3.5-5.1) mmol/L Chloride 102 (98-107) mmol/L Carbon Dioxide 31.8 (21.0-32.0) mmol/L BUN 16 (7.0-18.0) mg/dL Creatinine 1.1 (0.8-1.3) mg/dL Est Cr Clr Drug Dosing 55.35 mL/min Estimated GFR (MDRD) > 60.0 ml/min Glucose 131 H (74-106) mg/dL Calcium 7.4 L (8.5-10.1) mg/dL Magnesium 1.4 L (1.5-2.0) mg/dL Total Bilirubin 1.0 (0.2-1.0) mg/dL AST 19 (15-37) IU/L ALT 26 (14-63) IU/L Alkaline Phosphatase 85 (46-116) U/L Total Protein 5.7 L (6.4-8.2) g/dL Albumin 2.6 L (3.4-5.0) g/dL Globulin 3.1 (2.0-3.5) g/dL Albumin/Globulin Ratio 0.8 L (1.3-2.8) Amylase 55 (25-115) U/L Lipase 65 L (73-393) U/L Urine Color YELLOW Urine Appearance SLT CLOUDY Urine pH 7.5 (5.0-8.0) Ur Specific [place] 1.015 (1.001-1.035) Urine Protein TRACE (NEGATIVE) mg/dL Urine Glucose (UA) NEGATIVE (NEGATIVE) mg/dL Urine Ketones NEGATIVE (NEGATIVE) mg/dL Urine Occult Blood NEGATIVE (NEGATIVE) Urine Nitrite POSITIVE H (NEGATIVE) Urine Bilirubin NEGATIVE (NEGATIVE) Urine Urobilinogen 2.0 H (<2.0) EU/dL Ur Leukocyte Esterase SMALL (NEGATIVE) Urine RBC 0-3 (0-2/HPF) Urine WBC 10-15 (0-5/HPF) Ur Epithelial Cells RARE (NONE-FEW) Ur Renal Epithelial Cell FEW Urine Bacteria 4+ H (NEGATIVE) RBC Casts 0-1 (NEGATIVE) Blood Type O POSITIVE Antibody Screen NEGATIVE Meds: Medications Generic Name Dose Route Start Last Admin Trade Name Freq PRN Reason Stop Dose Admin Sodium Chloride 1,000 mls @ 125 mls/hr 08/20/17 01:58 08/20/17 01:59 Normal Saline IV 08/20/17 09:57 125 mls/hr .Bolus ONE Administration Ceftriaxone Sodium/Dextrose 2 50 mls @ 100 mls/hr 08/20/17 02:24 gm/ Premix IV 08/20/17 02:53 ONETIME ONE Clindamycin Phosphate 900 mg/ 50 mls @ 100 mls/hr 08/20/17 02:24 Premix IV 08/20/17 02:53 ONETIME ONE Discontinued Medications Generic Name Dose Route Start Last Admin Trade Name Freq PRN Reason Stop Dose Admin Al Hydroxide/Mg Hydroxide 15 0 ml 08/20/17 00:18 08/20/17 00:51 ml/ Metoclopramide HCl 5 mg/ PO 08/20/17 00:19 1 each Lidocaine HCl 5 ml ONETIME ONE Administration Dexamethasone 10 mg 08/20/17 02:24 Dexamethasone IVPUSH 08/20/17 02:25 ONETIME ONE Sodium Chloride 1,000 mls @ 999 mls/hr 08/20/17 00:11 08/20/17 00:49 Normal Saline IV 08/20/17 01:11 999 mls/hr STAT ONE Administration Ondansetron HCl 4 mg 08/20/17 00:11 08/20/17 00:51 Zofran IVPUSH 08/20/17 00:12 4 mg ONETIME ONE Administration Pantoprazole Sodium 80 mg 08/20/17 00:11 08/20/17 00:51 Protonix Iv IVPUSH 08/20/17 00:12 80 mg .BOLUS ONE Administration Departure - Departure Time of Disposition: 02:31 Disposition: DC/Tfer to [facility] 02 Condition: Good Clinical Impression: Pancytopenia, Neutropenic fever, Epiglottitis - Discharge Information Referrals: PCP,None [Primary Care Provider] - - My Orders Last 24 Hours: My Active Orders 08/20/17 00:11 Chest 2V [CR] Stat Neck Soft Tissue [CR] Stat Blood Culture x2 Reflex Set [OM.PC] Stat 08/20/17 00:31 CULTURE BLOOD [BC] Stat 08/20/17 00:45 CULTURE BLOOD [BC] Stat 08/20/17 01:35 Communication Order [RC] STAT 08/20/17 01:38 UA W/MICROSCOPIC [URIN] Stat 08/20/17 01:43 CULTURE URINE [RM] Stat 08/20/17 01:58 Sodium Chloride 0.9% [Normal Saline] 1,000 ml IV .Bolus 08/20/17 02:24 Clindamycin Phosphate in D5W [Cleocin in D5W] 900 mg Premix Bag 1 bag IV ONETIME cefTRIAXone [Rocephin in Dextrose,Iso-Osm 2 GM/50 ML] 2 gm Premix Bag 1 bag IV ONETIME - Assessment/Plan Last 24 Hours: My Active Orders 08/20/17 00:11 Chest 2V [CR] Stat Neck Soft Tissue [CR] Stat Blood Culture x2 Reflex Set [OM.PC] Stat 08/20/17 00:31 CULTURE BLOOD [BC] Stat 08/20/17 00:45 CULTURE BLOOD [BC] Stat 08/20/17 01:35 Communication Order [RC] STAT 08/20/17 01:38 UA W/MICROSCOPIC [URIN] Stat 08/20/17 01:43 CULTURE URINE [RM] Stat 08/20/17 01:58 Sodium Chloride 0.9% [Normal Saline] 1,000 ml IV .Bolus 08/20/17 02:24 Clindamycin Phosphate in D5W [Cleocin in D5W] 900 mg Premix Bag 1 bag IV ONETIME cefTRIAXone [Rocephin in Dextrose,Iso-Osm 2 GM/50 ML] 2 gm Premix Bag 1 bag IV ONETIME
[2017-08-20] MEDS ORDERED: Pantoprazole 40 MG Vial IVPUSH ONE (00:11)
[2017-08-20] MEDS ORDERED: Sodium Chloride 0.9% 1,000 ML IV ONE ×2 (00:11→01:58)
[2017-08-20] MEDS ORDERED: Ondansetron 4 MG/2 ML SDV IVPUSH ONE (00:11)
[2017-08-20] MEDS ORDERED: Alum Hydrox/Mag Hydrox/Simeth 15 ML, Metoclopramide 5 MG, Lidocaine 2% 5 ML PO ONE ×3 (00:18)
[2017-08-20 01:14] LABS: CHLORIDE,CL 102 mmol/L (98-107); SODIUM,NA 138 mmol/L (136-148)
[2017-08-20 02:12] VITALS: BP 121/63
[2017-08-20] MEDS ORDERED: Dexamethasone 10 MG/ML SDV IVPUSH ONE (02:24)
[2017-08-20] MEDS ORDERED: Clindamycin Phosphate in D5W 900 MG in Premix Bag 1 BAG IV ONE ×2 (02:24)
[2017-08-20] MEDS ORDERED: cefTRIAXone 2 GM in Premix Bag 1 BAG IV ONE (02:24)
--- NOTE | 2017-08-22 18:23 | CR ---
EXAM DATE: 08/19/17 PATIENT'S AGE: 77 Patient: JOSTIN SAHA Facility: [place], [place] Site . Site : 1940 Study: XRay ST Neck [id number]/12/2018 1:43:18 AM Ordering Physician: Benjamín Conrad Final Report: INDICATION: Throat Pain TECHNIQUE: Soft tissue neck 2 view. COMPARISON: None. FINDINGS: The airway is patent and normal. Epiglottis is thickened. The retropharyngeal soft tissues are normal. No obvious masses. The visualized cervical spine demonstrates degenerative changes. IMPRESSION: Findings are consistent with epiglottitis. Dictated by: Chandana Lopez MD @ 08/20/2017 01:50:12 (Electronic Signature) Report Signed by Proxy. [facility]
--- NOTE | 2017-08-22 18:24 | CR ---
EXAM DATE: 08/19/17 PATIENT'S AGE: 77 Patient: JOSTIN SAHA Facility: [place], [place] Site . Site : 1940 Study: XRay Chest [id number]/12/2018 1:44:56 AM Ordering Physician: Benjamín Conrad Final Report: INDICATION: Shortness of Breath, Fever, Decreased Fluid Intake TECHNIQUE: Chest 2 views COMPARISON: August 04, 2017 FINDINGS: Cardiovascular and mediastinum: Heart size and vasculature are normal in caliber and appearance. Mediastinum is within normal limits. Lungs and pleural spaces: Scarring throughout both lungs most pronounced in the left lower lobe. Hyperinflation. Eventration of the right hemidiaphragm. No sign of pleural effusion. No pneumothorax. Bones: Degenerative changes. Other: Right-sided Mediport catheter in place. IMPRESSION: No acute cardiopulmonary disease Dictated by Chandana Lopez MD @ 08/20/2017 1:53:26 AM Dictated by: Chandana Lopez MD @ 08/20/2017 01:56:16 (Electronic Signature) Report Signed by Proxy. [facility]
== END 2017-08-20 03:10 ==
LOC: MW.ED 23:55
DX: J05.10 Acute epiglottitis without obstruction (principal); D70.9 Neutropenia, unspecified; R50.81 Fever presenting with conditions classified elsewhere; I10 Essential (primary) hypertension; Z79.899 Other long term (current) drug therapy; K21.9 Gastro-esophageal reflux disease without esophagitis; E66.9 Obesity, unspecified; Z68.32 Body mass index [BMI] 32.0-32.9, adult
CPT/HCPCS: 36415; 70360; 71046; 80053; 81001; 82150; 83605; 83690; 83735; 85025; 85610; 86850; 86900; 86901; 87040; 87086; 87088; 87186; 96361; 96365; 96368; 96375; 99285; A9270; C9113; J0696; J1100; J2405; J7040

== ENCOUNTER 2018-07-16 13:57 | Inpatient (IN) | payer MEDICARE, BC, OTHER ==
[2018-07-16] MEDS ORDERED: Sodium Chloride 0.9% 1,000 ML IV ONE (14:21)
--- NOTE | 2018-07-16 14:54 | CR ---
Indication: Confusion. Fall. Technique: A single AP portable view of the chest was obtained. Comparison: None Findings: The heart is normal in size. The lungs are clear. No infiltrate, pleural effusion, or pneumothorax is identified. Impression: No acute cardiopulmonary process. Dictated by Stephanie Troncoso MD @ Jul 16 2018 2:52PM Signed by Dr. Stephanie Troncoso @ Jul 16 2018 2:52PM
--- NOTE | 2018-07-16 14:58 | CT ---
INDICATION: Fall, head injury. TECHNIQUE: CT head without contrast. COMPARISON: None. FINDINGS: CSF spaces: Within normal limits for age. Brain parenchyma: The loza-white differentiation is normal. No sign of mass, hemorrhage, or midline shift. Skull base and calvarium: The visualized paranasal sinuses and mastoid air cells demonstrate no acute or significant findings. The visualized orbits are grossly unremarkable. No skull fractures. IMPRESSION: Unremarkable noncontrast head CT. Please note that all CT scans at this facility use dose modulation, iterative reconstruction, and/or weight-based dosing when appropriate to reduce radiation dose to as low as reasonably achievable. Dictated by Robert Harp MD @ Jul 16 2018 2:53PM Signed by Dr. Robert Harp @ Jul 16 2018 2:57PM
[2018-07-16 15:21] LABS: CHLORIDE,CL 107 mmol/L (98-107); SODIUM,NA 144 mmol/L (136-148)
--- NOTE | 2018-07-16 17:25 | EDM.PDOC ---
ED HPI GENERAL MEDICAL PROBLEM - General Chief Complaint: General Stated Complaint: AMB Time Seen by Provider: 07/16/18 14:08 Source of Information: Reports: Patient History Limitations: Reports: No Limitations - History of Present Illness INITIAL COMMENTS - FREE TEXT/NARRATIVE: HISTORY AND PHYSICAL: History of present illness: Patient is a 78-year-old male who presents to the ED today for increase in falls and weakness over the past 7-10 days. Patient states that he states that prior to this, he was able to ambulate without difficulty. Patient does live alone and does not have anybody to help him home. Patient states that he fell 2 times today and was not able to get off the floor. Patient states he does have a history of bladder cancer and is currently receiving immunotherapy treatment. Patient states that he has not been eating and drinking over the past couple days due to this generalized weakness and difficulties getting around the house by himself. Patient denies fever, chills, chest pain, shortness of breath, or cough. Denies headache, neck stiff ness, change in vision, syncope, or near syncope. Denies nausea, vomiting, abdominal pain, diarrhea, constipation, or dysuria. Patient has a history of bladder cancer, hypertension, hypothyroid, JAQUAN, and GERD. Review of systems: As per history of present illness and below otherwise all systems reviewed and negative. Past medical history: As per history of present illness and as reviewed below otherwise noncontributory. Surgical history: As per history of present illness and as reviewed below otherwise noncontributory. Social history: See social history for further information Family history: As per history of present illness and as reviewed below otherwise noncontributory. Physical exam: General: Patient is alert, oriented, and in no acute distress. He is lying comfortably on exam table. HEENT: Atraumatic, normocephalic, pupils equal and reactive bilaterally, negative for conjunctival pallor or scleral icterus, mucous membranes dry, TMs normal bilaterally, throat clear, neck supple, nontender, trachea midline. No drooling or trismus noted. No meningeal signs. No hot potato voice noted. Lungs: Clear to auscultation, breath sounds equal bilaterally, chest nontender. Heart: Heart sounds are distant, so exam of heart is limited. S1S2, regular rate and rhythm without overt murmur Abdomen: Obese, soft, nondistended, nontender. Negative for masses or hepatosplenomegaly. Negative for costovertebral tenderness. Pelvis: Stable nontender. Genitourinary: Deferred. Rectal: Deferred. Skin: Intact, warm, dry. No lesions or rashes noted. Extremities: Atraumatic, negative for cords or calf pain. Neurovascular unremarkable. Neuro: Awake, alert, oriented. Cranial nerves II through XII unremarkable. Cerebellum unremarkable. Motor and sensory unremarkable throughout. Exam nonfocal. Notes: Will do labs and imaging today. While with nursing staff, patient is unable to ambulate by himself. He also has difficulty sitting up in the bed without assistance. Labs do show patient has a urinary tract infection. Patient is unable to perform ADL's at this time. Dr. Temple was consulted on this patient and will admit to observation. Diagnostics: CBC, CMP, UA with culture, PT INR, troponin, chest x-ray, head CT, cardiac monitoring, EKG, orthostatic vitals Therapeutics: Saline Impression: Urinary tract infection Generalized weakness Fall risk Plan: 1. Admit to observation to Dr. Temple. Definitive disposition and diagnosis as appropriate pending reevaluation and review of above. - Related Data Allergies Allergy/AdvReac Type Severity Reaction Status Date / Time No Known Allergies Allergy Verified 07/16/18 13:59 Home Meds: Home Meds Triamterene/Hydrochlorothiazid [Triamterene-HCTZ 37.5-25 MG] 0.5 tab PO BID 07/24 [History] Fish Oil/[place]-3 Fatty Acids [Fish Oil 1,000 MG] 1 tab PO BID 08/26/16 [History] Latanoprost [Xalatan 0.005% Ophth Soln] 1 drop EYEBOTH BEDTIME 08/26/16 [History ] traZODone HCl [Trazodone HCl] 25 mg PO BEDTIME PRN 08/26/16 [History] Levothyroxine 25 mcg PO ACBREAKFAST 03/18/18 [History] oxyCODONE 5 mg PO Q8H PRN 5 Days #15 tab 03/19/18 [Rx] Past Medical History - Past Health History Medical/Surgical History: Denies Medical/Surgical History HEENT History: Reports: Cataract, Glaucoma Other HEENT History: wears glasses Cardiovascular History: Reports: Hypertension Respiratory History: Reports: Sleep Apnea Other Respiratory History: does not use CPAP Gastrointestinal History: Reports: GERD Genitourinary History: Reports: Other (See Below) Other Genitourinary History: hx of bladder tumor Musculoskeletal History: Reports: Arthritis, Fracture Other Musculoskeletal History: hx of fx thumb, left shoulder pain Neurological History: Reports: None Psychiatric History: Reports: None Endocrine/Metabolic History: Reports: Obesity/BMI 30+ Hematologic History: Reports: None Immunologic History: Reports: None Oncologic (Cancer) History: Reports: Bladder Dermatologic History: Reports: None - Infectious Disease History Infectious Disease History: Reports: Chicken Pox, Measles - Past Surgical History Head Surgeries/Procedures: Reports: None HEENT Surgical History: Reports: Cataract Surgery, Other (See Below) Other HEENT Surgeries/Procedures: hx of Blepharoplasty Cardiovascular Surgical History: Reports: None Respiratory Surgical History: Reports: None GI Surgical History: Reports: Appendectomy Male Surgical History: Reports: TURBT-Transurethral Resection of Bladder Tumor Endocrine Surgical History: Reports: None Neurological Surgical History: Reports: None Musculoskeletal Surgical History: Reports: None Oncologic Surgical History: Reports: None Dermatological Surgical History: Reports: None Social & Family History - Family History Family Medical History: Noncontributory HEENT: Reports: None - Tobacco Use Smoking Status *Q: Former Smoker Used Tobacco, but Quit: Yes Month/Year Tobacco Last Used: 1958 - Caffeine Use Caffeine Use: Reports: Coffee - Recreational Drug Use Recreational Drug Use: No ED ROS GENERAL - Review of Systems Review Of Systems: ROS reveals no pertinent complaints other than HPI. ED EXAM, GENERAL - Physical Exam Exam: See Below (see dictation) Course - Vital Signs Last Recorded V/S: Last Vital Signs Temp 36.2 C 07/16/18 13:59 Pulse 87 07/16/18 17:00 Resp 18 07/16/18 17:00 BP 172/87 H 07/16/18 17:00 Pulse Ox 96 07/16/18 17:00 Orthostatic Blood Pressure [ 149/87 Standing] Orthostatic Blood Pressure [ 178/92 Sitting] Orthostatic Blood Pressure [ 161/109 Supine] - Orders/Labs/Meds Orders: Active Orders 24 hr Category Date Time Status Admission Status [Patient Status] [ADT] Stat ADT 07/16/18 17:18 Active Cardiac Monitoring [RC] . DIRECTED Care 07/16/18 14:21 Active EKG Documentation Completion [RC] STAT Care 07/16/18 14:21 Active Orthostatic Vital Signs [RC] ASDIRECTED Care 07/16/18 14:24 Active CULTURE URINE [RM] Stat Lab 07/16/18 16:12 Received Labs: Laboratory Tests 07/16/18 07/16/18 07/16/18 Range/Units 14:49 14:49 14:49 WBC 7.53 (4.0-11.0) K/uL RBC 4.81 (4.50-5.90) M/uL Hgb 13.1 (13.0-17.0) g/dL Hct 39.4 (38.0-50.0) % MCV 81.9 (80.0-98.0) fL MCH 27.2 (27.0-32.0) pg MCHC 33.2 (31.0-37.0) g/dL RDW Std Deviation 43.2 (28.0-62.0) fl RDW Coeff of [place] 15 (11.0-15.0) % Plt Count 185 (150-400) K/uL MPV 8.90 (7.40-12.00) fL Neut % (Auto) 80.9 H (48.0-80.0) % Lymph % (Auto) 12.6 L (16.0-40.0) % [place] % (Auto) 5.3 (0.0-15.0) % Eos % (Auto) 0.9 (0.0-7.0) % Baso % (Auto) 0.3 (0.0-1.5) % Neut # (Auto) 6.1 H (1.4-5.7) K/uL Lymph # (Auto) 1.0 (0.6-2.4) K/uL [place] # (Auto) 0.4 (0.0-0.8) K/uL Eos # (Auto) 0.1 (0.0-0.7) K/uL Baso # (Auto) 0.0 (0.0-0.1) K/uL Nucleated RBC % 0.0 /100WBC Nucleated RBCs # 0 K/uL INR 1.09 Sodium 144 (136-148) mmol/L Potassium 3.7 (3.5-5.1) mmol/L Chloride 107 (98-107) mmol/L Carbon Dioxide 27.9 (21.0-32.0) mmol/L BUN 17 (7.0-18.0) mg/dL Creatinine 0.9 (0.8-1.3) mg/dL Est Cr Clr Drug Dosing 68.72 mL/min Estimated GFR (MDRD) > 60.0 ml/min Glucose 100 (74-106) mg/dL Calcium 9.1 (8.5-10.1) mg/dL Total Bilirubin 1.0 (0.2-1.0) mg/dL AST 30 (15-37) IU/L ALT 21 (14-63) IU/L Alkaline Phosphatase 135 H (46-116) U/L Troponin I < 0.050 (0.000-0.056) ng/mL Total Protein 7.3 (6.4-8.2) g/dL Albumin 3.6 (3.4-5.0) g/dL Globulin 3.7 (2.6-4.0) g/dL Albumin/Globulin Ratio 1.0 (0.9-1.6) Urine Color Urine Appearance Urine pH (5.0-8.0) Ur Specific [place] (1.001-1.035) Urine Protein (NEGATIVE) mg/dL Urine Glucose (UA) (NEGATIVE) mg/dL Urine Ketones (NEGATIVE) mg/dL Urine Occult Blood (NEGATIVE) Urine Nitrite (NEGATIVE) Urine Bilirubin (NEGATIVE) Urine Ictotest Urine Urobilinogen (<2.0) EU/dL Ur Leukocyte Esterase (NEGATIVE) Urine RBC (0-2/HPF) Urine WBC (0-5/HPF) Ur Epithelial Cells (NONE-FEW) Urine Bacteria (NEGATIVE) 07/16/18 Range/Units 16:12 WBC (4.0-11.0) K/uL RBC (4.50-5.90) M/uL Hgb (13.0-17.0) g/dL Hct (38.0-50.0) % MCV (80.0-98.0) fL MCH (27.0-32.0) pg MCHC (31.0-37.0) g/dL RDW Std Deviation (28.0-62.0) fl RDW Coeff of [place] (11.0-15.0) % Plt Count (150-400) K/uL MPV (7.40-12.00) fL Neut % (Auto) (48.0-80.0) % Lymph % (Auto) (16.0-40.0) % Russell % (Auto) (0.0-15.0) % Eos % (Auto) (0.0-7.0) % Baso % (Auto) (0.0-1.5) % Neut # (Auto) (1.4-5.7) K/uL Lymph # (Auto) (0.6-2.4) K/uL [place] # (Auto) (0.0-0.8) K/uL Eos # (Auto) (0.0-0.7) K/uL Baso # (Auto) (0.0-0.1) K/uL Nucleated RBC % /100WBC Nucleated RBCs # K/uL INR Sodium (136-148) mmol/L Potassium (3.5-5.1) mmol/L Chloride (98-107) mmol/L Carbon Dioxide (21.0-32.0) mmol/L BUN (7.0-18.0) mg/dL Creatinine (0.8-1.3) mg/dL Est Cr Clr Drug Dosing mL/min Estimated GFR (MDRD) ml/min Glucose (74-106) mg/dL Calcium (8.5-10.1) mg/dL Total Bilirubin (0.2-1.0) mg/dL AST (15-37) IU/L ALT (14-63) IU/L Alkaline Phosphatase (46-116) U/L Troponin I (0.000-0.056) ng/mL Total Protein (6.4-8.2) g/dL Albumin (3.4-5.0) g/dL Globulin (2.6-4.0) g/dL Albumin/Globulin Ratio (0.9-1.6) Urine Color LAURIE Urine Appearance SLT CLOUDY Urine pH 5.5 (5.0-8.0) Ur Specific [place] >= 1.030 (1.001-1.035) Urine Protein 100 H (NEGATIVE) mg/dL Urine Glucose (UA) NEGATIVE (NEGATIVE) mg/dL Urine Ketones 15 H (NEGATIVE) mg/dL Urine Occult Blood LARGE H (NEGATIVE) Urine Nitrite POSITIVE H (NEGATIVE) Urine Bilirubin MODERATE H (NEGATIVE) Urine Ictotest NEGATIVE Urine Urobilinogen 1.0 (<2.0) EU/dL Ur Leukocyte Esterase NEGATIVE (NEGATIVE) Urine RBC 100-150 (0-2/HPF) Urine WBC 1-3 (0-5/HPF) Ur Epithelial Cells FEW (NONE-FEW) Urine Bacteria 1+ H (NEGATIVE) Meds: Medications Discontinued Medications Generic Name Dose Route Start Last Admin Trade Name Freq PRN Reason Stop Dose Admin Sodium Chloride 1,000 mls @ 999 mls/hr 07/16/18 14:21 07/16/18 15:02 Normal Saline IV 07/16/18 15:21 999 mls/hr BOLUS ONE Administration Departure - Departure Time of Disposition: 17:24 Disposition: Refer to Observation Clinical Impression: Generalized weakness, At risk for falling Urinary tract infection Qualifiers: Urinary tract infection type: site unspecified Hematuria presence: with hematuria Qualified Code(s): N39.0 - Urinary tract infection, site not specified - Discharge Information - My Orders Last 24 Hours: My Active Orders 07/16/18 14:21 Cardiac Monitoring [RC] . DIRECTED EKG Documentation Completion [RC] STAT 07/16/18 14:24 Orthostatic Vital Signs [RC] ASDIRECTED 07/16/18 16:12 CULTURE URINE [RM] Stat 07/16/18 17:18 Admission Status [Patient Status] [ADT] Stat - Assessment/Plan Last 24 Hours: My Active Orders 07/16/18 14:21 Cardiac Monitoring [RC] . DIRECTED EKG Documentation Completion [RC] STAT 07/16/18 14:24 Orthostatic Vital Signs [RC] ASDIRECTED 07/16/18 16:12 CULTURE URINE [RM] Stat 07/16/18 17:18 Admission Status [Patient Status] [ADT] Stat
[2018-07-16] MEDS ORDERED: Sodium Chloride 0.9% 1,000 ML IV SCH (18:00)
[2018-07-16] MEDS ORDERED: cefTRIAXone 1 GM in Sodium Chloride 0.9% 50 ML IV SCH (20:15)
[2018-07-16] MEDS ORDERED: traZODone 50 MG Tab PO PRN (20:16)
--- NOTE | 2018-07-16 20:16 | PCM.HP ---
H&P History of Present Illness - General Date of Service: 07/16/18 Admit Problem/Dx: Admission Diagnosis/Problem Admission Diagnosis/Problem Weakness - History of Present Illness Initial Comments - Free Text/Narative: 78 yo male with pmh of metastatic bladder cancer who is on immunotherapy who presents with one week history of generalized weakness. He reports multiple falls at home as his knees give out. He reports that he is no longer strong enough to walk. He denies any numbness, bladder or stool incontinence. He reports three weeks of vertigo since a flight back from [place] when his ears did not pop. He has an appointment with an pearl cutter on Tuesday. He denies any fevers or dysuria. - Related Data Allergies/Adverse Reactions: Allergies Allergy/AdvReac Type Severity Reaction Status Date / Time No Known Allergies Allergy Verified 07/16/18 13:59 Home Medications: Home Meds Triamterene/Hydrochlorothiazid [Triamterene-HCTZ 37.5-25 MG] 0.5 tab PO BID 07/24 [History] Fish Oil/[place]-3 Fatty Acids [Fish Oil 1,000 MG] 1 tab PO BID 08/26/16 [History] Latanoprost [Xalatan 0.005% Ophth Soln] 1 drop EYEBOTH BEDTIME 08/26/16 [History ] traZODone HCl [Trazodone HCl] 25 mg PO BEDTIME PRN 08/26/16 [History] Levothyroxine 25 mcg PO ACBREAKFAST 03/18/18 [History] oxyCODONE 5 mg PO Q8H PRN 5 Days #15 tab 03/19/18 [Rx] Past Medical History - Past Health History Medical/Surgical History: Denies Medical/Surgical History HEENT History: Reports: Cataract, Glaucoma Other HEENT History: wears glasses Cardiovascular History: Reports: Hypertension Respiratory History: Reports: Sleep Apnea Other Respiratory History: does not use CPAP Gastrointestinal History: Reports: GERD Genitourinary History: Reports: Other (See Below) Other Genitourinary History: hx of bladder tumor Musculoskeletal History: Reports: Arthritis, Fracture Other Musculoskeletal History: hx of fx thumb, left shoulder pain Neurological History: Reports: None Psychiatric History: Reports: None Endocrine/Metabolic History: Reports: Obesity/BMI 30+ Hematologic History: Reports: None Immunologic History: Reports: None Oncologic (Cancer) History: Reports: Bladder Dermatologic History: Reports: None - Infectious Disease History Infectious Disease History: Reports: Chicken Pox, Measles - Past Surgical History Head Surgeries/Procedures: Reports: None HEENT Surgical History: Reports: Cataract Surgery, Other (See Below) Other HEENT Surgeries/Procedures: hx of Blepharoplasty Cardiovascular Surgical History: Reports: None Respiratory Surgical History: Reports: None GI Surgical History: Reports: Appendectomy Male Surgical History: Reports: TURBT-Transurethral Resection of Bladder Tumor Endocrine Surgical History: Reports: None Neurological Surgical History: Reports: None Musculoskeletal Surgical History: Reports: None Oncologic Surgical History: Reports: None Dermatological Surgical History: Reports: None Social & Family History - Family History Family Medical History: Noncontributory HEENT: Reports: None - Tobacco Use Smoking Status *Q: Former Smoker Used Tobacco, but Quit: Yes Month/Year Tobacco Last Used: 1958 - Caffeine Use Caffeine Use: Reports: Coffee - Recreational Drug Use Recreational Drug Use: No H&P Review of Systems - Review of Systems: Review Of Systems: ROS reveals no pertinent complaints other than HPI. Exam - Exam Exam: See Below - Vital Signs Vital Signs: Last Vital Signs Temp 36.2 C 07/16/18 13:59 Pulse 87 07/16/18 17:00 Resp 18 07/16/18 17:00 BP 172/87 H 07/16/18 17:00 Pulse Ox 96 07/16/18 17:00 Orthostatic Blood Pressure [ 149/87 Standing] Orthostatic Blood Pressure [ 178/92 Sitting] Orthostatic Blood Pressure [ 161/109 Supine] Weight: 108.862 kg - Exam General: Alert, Oriented HEENT: Mucosa Moist & [place] Neck: Supple Lungs: Clear to Auscultation, Normal Respiratory Effort Cardiovascular: Regular Rate, Regular Rhythm GI/Abdominal Exam: Soft, Non-Tender, No Abnormal Bruit Extremities: Non-Tender, No Pedal Edema Skin: Warm, Dry, Intact - Patient Data Lab Results Last 24 hrs: Laboratory Results - last 24 hr 07/16/18 07/16/18 07/16/18 Range/Units 14:49 14:49 14:49 WBC 7.53 (4.0-11.0) K/uL RBC 4.81 (4.50-5.90) M/uL Hgb 13.1 (13.0-17.0) g/dL Hct 39.4 (38.0-50.0) % MCV 81.9 (80.0-98.0) fL MCH 27.2 (27.0-32.0) pg MCHC 33.2 (31.0-37.0) g/dL RDW Std Deviation 43.2 (28.0-62.0) fl RDW Coeff of [place] 15 (11.0-15.0) % Plt Count 185 (150-400) K/uL MPV 8.90 (7.40-12.00) fL Neut % (Auto) 80.9 H (48.0-80.0) % Lymph % (Auto) 12.6 L (16.0-40.0) % [place] % (Auto) 5.3 (0.0-15.0) % Eos % (Auto) 0.9 (0.0-7.0) % Baso % (Auto) 0.3 (0.0-1.5) % Neut # (Auto) 6.1 H (1.4-5.7) K/uL Lymph # (Auto) 1.0 (0.6-2.4) K/uL [place] # (Auto) 0.4 (0.0-0.8) K/uL Eos # (Auto) 0.1 (0.0-0.7) K/uL Baso # (Auto) 0.0 (0.0-0.1) K/uL Nucleated RBC % 0.0 /100WBC Nucleated RBCs # 0 K/uL INR 1.09 Sodium 144 (136-148) mmol/L Potassium 3.7 (3.5-5.1) mmol/L Chloride 107 (98-107) mmol/L Carbon Dioxide 27.9 (21.0-32.0) mmol/L BUN 17 (7.0-18.0) mg/dL Creatinine 0.9 (0.8-1.3) mg/dL Est Cr Clr Drug Dosing 68.72 mL/min Estimated GFR (MDRD) > 60.0 ml/min Glucose 100 (74-106) mg/dL Calcium 9.1 (8.5-10.1) mg/dL Total Bilirubin 1.0 (0.2-1.0) mg/dL AST 30 (15-37) IU/L ALT 21 (14-63) IU/L Alkaline Phosphatase 135 H (46-116) U/L Troponin I < 0.050 (0.000-0.056) ng/mL Total Protein 7.3 (6.4-8.2) g/dL Albumin 3.6 (3.4-5.0) g/dL Globulin 3.7 (2.6-4.0) g/dL Albumin/Globulin Ratio 1.0 (0.9-1.6) Urine Color Urine Appearance Urine pH (5.0-8.0) Ur Specific [place] (1.001-1.035) Urine Protein (NEGATIVE) mg/dL Urine Glucose (UA) (NEGATIVE) mg/dL Urine Ketones (NEGATIVE) mg/dL Urine Occult Blood (NEGATIVE) Urine Nitrite (NEGATIVE) Urine Bilirubin (NEGATIVE) Urine Ictotest Urine Urobilinogen (<2.0) EU/dL Ur Leukocyte Esterase (NEGATIVE) Urine RBC (0-2/HPF) Urine WBC (0-5/HPF) Ur Epithelial Cells (NONE-FEW) Urine Bacteria (NEGATIVE) 07/16/18 Range/Units 16:12 WBC (4.0-11.0) K/uL RBC (4.50-5.90) M/uL Hgb (13.0-17.0) g/dL Hct (38.0-50.0) % MCV (80.0-98.0) fL MCH (27.0-32.0) pg MCHC (31.0-37.0) g/dL RDW Std Deviation (28.0-62.0) fl RDW Coeff of [place] (11.0-15.0) % Plt Count (150-400) K/uL MPV (7.40-12.00) fL Neut % (Auto) (48.0-80.0) % Lymph % (Auto) (16.0-40.0) % [place] % (Auto) (0.0-15.0) % Eos % (Auto) (0.0-7.0) % Baso % (Auto) (0.0-1.5) % Neut # (Auto) (1.4-5.7) K/uL Lymph # (Auto) (0.6-2.4) K/uL [place] # (Auto) (0.0-0.8) K/uL Eos # (Auto) (0.0-0.7) K/uL Baso # (Auto) (0.0-0.1) K/uL Nucleated RBC % /100WBC Nucleated RBCs # K/uL INR Sodium (136-148) mmol/L Potassium (3.5-5.1) mmol/L Chloride (98-107) mmol/L Carbon Dioxide (21.0-32.0) mmol/L BUN (7.0-18.0) mg/dL Creatinine (0.8-1.3) mg/dL Est Cr Clr Drug Dosing mL/min Estimated GFR (MDRD) ml/min Glucose (74-106) mg/dL Calcium (8.5-10.1) mg/dL Total Bilirubin (0.2-1.0) mg/dL AST (15-37) IU/L ALT (14-63) IU/L Alkaline Phosphatase (46-116) U/L Troponin I (0.000-0.056) ng/mL Total Protein (6.4-8.2) g/dL Albumin (3.4-5.0) g/dL Globulin (2.6-4.0) g/dL Albumin/Globulin Ratio (0.9-1.6) Urine Color LAURIE Urine Appearance SLT CLOUDY Urine pH 5.5 (5.0-8.0) Ur Specific [place] >= 1.030 (1.001-1.035) Urine Protein 100 H (NEGATIVE) mg/dL Urine Glucose (UA) NEGATIVE (NEGATIVE) mg/dL Urine Ketones 15 H (NEGATIVE) mg/dL Urine Occult Blood LARGE H (NEGATIVE) Urine Nitrite POSITIVE H (NEGATIVE) Urine Bilirubin MODERATE H (NEGATIVE) Urine Ictotest NEGATIVE Urine Urobilinogen 1.0 (<2.0) EU/dL Ur Leukocyte Esterase NEGATIVE (NEGATIVE) Urine RBC 100-150 (0-2/HPF) Urine WBC 1-3 (0-5/HPF) Ur Epithelial Cells FEW (NONE-FEW) Urine Bacteria 1+ H (NEGATIVE) Result Diagrams: 07/17/18 05:05 07/17/18 05:05 Problem List Initiated/Reviewed/Updated: Yes Orders Last 24hrs: Active Orders 24 hr Category Date Time Status Admission Status [Patient Status] [ADT] Stat ADT 07/16/18 17:18 Active Antiembolic Devices [RC] PER UNIT ROUTINE Care 07/16/18 20:11 Ordered Cardiac Monitoring [RC] . DIRECTED Care 07/16/18 14:21 Active EKG Documentation Completion [RC] STAT Care 07/16/18 14:21 Active Orthostatic Vital Signs [RC] ASDIRECTED Care 07/16/18 14:24 Active Oxygen Therapy [RC] PRN Care 07/16/18 20:11 Ordered Up ad Janet [RC] ASDIRECTED Care 07/16/18 20:11 Ordered VTE/DVT Education [RC] PER UNIT ROUTINE Care 07/16/18 20:11 Ordered Vital Signs [RC] Q4H Care 07/16/18 20:11 Ordered PT Evaluation and Treatment [CONS] Routine Cons 07/16/18 20:11 Ordered Regular Diet [DIET] Diet 07/16/18 Breakfast Ordered BASIC METABOLIC PANEL,BMP [CHEM] AM Lab 07/17/18 05:11 Ordered CBC WITH AUTO DIFF [HEME] AM Lab 07/17/18 05:11 Ordered CULTURE URINE [RM] Stat Lab 07/16/18 16:12 Received Heparin Sodium Med 07/16/18 20:15 Ordered 5,000 units SUBCUT Q8H Sodium Chloride 0.9% [Normal Saline] 1,000 ml Med 07/16/18 18:00 Active IV ASDIRECTED cefTRIAXone [Rocephin] 1 gm Med 07/16/18 20:15 Ordered Sodium Chloride 0.9% [Normal Saline] 50 ml IV Q24H Sequential Compression Device [OM.PC] Per Unit Routine Oth 07/16/18 20:11 Ordered Resuscitation Status Routine Resus Stat 07/16/18 20:11 Ordered Medication Orders Heparin Sodium (Porcine) (Heparin Sodium) 5,000 units SUBCUT Q8H YAJAIRA Sodium Chloride (Normal Saline) 1,000 mls @ 999 mls/hr IV ASDIRECTED YAJAIRA Last Admin: 07/16/18 17:15 Dose: 999 mls/hr Ceftriaxone Sodium 1 gm/ (Sodium Chloride) 50 mls @ 100 mls/hr IV Q24H [facility] Assessment/Plan Comment:: 78 yo male admitted for generalized weakness. He may have a UTI based on UA. We will treat with Rocephin. PT has been consulted regarding vertigo.
[2018-07-16] MEDS: Heparin Sodium 5,000 Units/ML Vial SUBCUT SCH (21:24)
[2018-07-17] MEDS: Fish Oil/Omega-3 Fatty Acids 1 Gm Cap PO SCH ×3 (00:04→20:23)
[2018-07-17] MEDS: Latanoprost 0.005% Ophth Soln 2.5 ML Bottle EYEBOTH SCH ×2 (00:04→20:24)
[2018-07-17] MEDS: Heparin Sodium 5,000 Units/ML Vial SUBCUT SCH ×3 (04:30→20:23)
[2018-07-17 06:19] LABS: CHLORIDE,CL 109 mmol/L (98-107); SODIUM,NA 144 mmol/L (136-148)
[2018-07-17] MEDS: Levothyroxine 25 MCG Tab PO SCH (06:56)
[2018-07-17] MEDS: Hydrochlorothiazide/Triamterene 25-37.5 Tab PO SCH ×2 (08:34→13:28)
--- NOTE | 2018-07-17 08:39 | PCM.PN ---
- General Info Date of Service: 07/17/18 - Review of Systems Systems Review Comment:: patient reports feeling stronger, still requiring two person assist with mobility. - Patient Data Vitals - Most Recent: Last Vital Signs Temp 36.9 C 07/17/18 08:08 Pulse 74 07/17/18 08:08 Resp 14 07/17/18 08:08 BP 142/78 H 07/17/18 08:08 Pulse Ox 95 07/17/18 08:08 Orthostatic Blood Pressure [ 149/87 Standing] Orthostatic Blood Pressure [ 178/92 Sitting] Orthostatic Blood Pressure [ 161/109 Supine] Weight - Most Recent: 108.862 kg I&O - Last 24 Hours: Intake & Output 07/16/18 07/17/18 07/17/18 22:59 06:59 14:59 Intake Total 300 Output Total 375 Balance -75 Lab Results Last 24 Hours: Laboratory Results - last 24 hr 07/16/18 07/16/18 07/16/18 Range/Units 14:49 14:49 14:49 WBC 7.53 (4.0-11.0) K/uL RBC 4.81 (4.50-5.90) M/uL Hgb 13.1 (13.0-17.0) g/dL Hct 39.4 (38.0-50.0) % MCV 81.9 (80.0-98.0) fL MCH 27.2 (27.0-32.0) pg MCHC 33.2 (31.0-37.0) g/dL RDW Std Deviation 43.2 (28.0-62.0) fl RDW Coeff of [place]elia 15 (11.0-15.0) % Plt Count 185 (150-400) K/uL MPV 8.90 (7.40-12.00) fL Neut % (Auto) 80.9 H (48.0-80.0) % Lymph % (Auto) 12.6 L (16.0-40.0) % Amelia % (Auto) 5.3 (0.0-15.0) % Eos % (Auto) 0.9 (0.0-7.0) % Baso % (Auto) 0.3 (0.0-1.5) % Neut # (Auto) 6.1 H (1.4-5.7) K/uL Lymph # (Auto) 1.0 (0.6-2.4) K/uL [place] # (Auto) 0.4 (0.0-0.8) K/uL Eos # (Auto) 0.1 (0.0-0.7) K/uL Baso # (Auto) 0.0 (0.0-0.1) K/uL Nucleated RBC % 0.0 /100WBC Nucleated RBCs # 0 K/uL INR 1.09 Sodium 144 (136-148) mmol/L Potassium 3.7 (3.5-5.1) mmol/L Chloride 107 (98-107) mmol/L Carbon Dioxide 27.9 (21.0-32.0) mmol/L BUN 17 (7.0-18.0) mg/dL Creatinine 0.9 (0.8-1.3) mg/dL Est Cr Clr Drug Dosing 68.72 mL/min Estimated GFR (MDRD) > 60.0 ml/min Glucose 100 (74-106) mg/dL Calcium 9.1 (8.5-10.1) mg/dL Total Bilirubin 1.0 (0.2-1.0) mg/dL AST 30 (15-37) IU/L ALT 21 (14-63) IU/L Alkaline Phosphatase 135 H (46-116) U/L Troponin I < 0.050 (0.000-0.056) ng/mL Total Protein 7.3 (6.4-8.2) g/dL Albumin 3.6 (3.4-5.0) g/dL Globulin 3.7 (2.6-4.0) g/dL Albumin/Globulin Ratio 1.0 (0.9-1.6) Urine Color Urine Appearance Urine pH (5.0-8.0) Ur Specific [place] (1.001-1.035) Urine Protein (NEGATIVE) mg/dL Urine Glucose (UA) (NEGATIVE) mg/dL Urine Ketones (NEGATIVE) mg/dL Urine Occult Blood (NEGATIVE) Urine Nitrite (NEGATIVE) Urine Bilirubin (NEGATIVE) Urine Ictotest Urine Urobilinogen (<2.0) EU/dL Ur Leukocyte Esterase (NEGATIVE) Urine RBC (0-2/HPF) Urine WBC (0-5/HPF) Ur Epithelial Cells (NONE-FEW) Urine Bacteria (NEGATIVE) 07/16/18 07/17/18 07/17/18 Range/Units 16:12 05:05 05:05 WBC 6.87 (4.0-11.0) K/uL RBC 4.14 L (4.50-5.90) M/uL Hgb 11.1 L (13.0-17.0) g/dL Hct 34.2 L (38.0-50.0) % MCV 82.6 (80.0-98.0) fL MCH 26.8 L (27.0-32.0) pg MCHC 32.5 (31.0-37.0) g/dL RDW Std Deviation 44.4 (28.0-62.0) fl RDW Coeff of [place]elia 15 (11.0-15.0) % Plt Count 174 (150-400) K/uL MPV 8.90 (7.40-12.00) fL Neut % (Auto) 74.7 (48.0-80.0) % Lymph % (Auto) 13.8 L (16.0-40.0) % Amelia % (Auto) 9.2 (0.0-15.0) % Eos % (Auto) 2.2 (0.0-7.0) % Baso % (Auto) 0.1 (0.0-1.5) % Neut # (Auto) 5.1 (1.4-5.7) K/uL Lymph # (Auto) 1.0 (0.6-2.4) K/uL Amelia # (Auto) 0.6 (0.0-0.8) K/uL Eos # (Auto) 0.2 (0.0-0.7) K/uL Baso # (Auto) 0.0 (0.0-0.1) K/uL Nucleated RBC % 0.0 /100WBC Nucleated RBCs # 0 K/uL INR Sodium 144 (136-148) mmol/L Potassium 3.2 L (3.5-5.1) mmol/L Chloride 109 H (98-107) mmol/L Carbon Dioxide 25.6 (21.0-32.0) mmol/L BUN 16 (7.0-18.0) mg/dL Creatinine 0.8 (0.8-1.3) mg/dL Est Cr Clr Drug Dosing 74.87 mL/min Estimated GFR (MDRD) > 60.0 ml/min Glucose 94 (74-106) mg/dL Calcium 8.1 L (8.5-10.1) mg/dL Total Bilirubin (0.2-1.0) mg/dL AST (15-37) IU/L ALT (14-63) IU/L Alkaline Phosphatase (46-116) U/L Troponin I (0.000-0.056) ng/mL Total Protein (6.4-8.2) g/dL Albumin (3.4-5.0) g/dL Globulin (2.6-4.0) g/dL Albumin/Globulin Ratio (0.9-1.6) Urine Color LAURIE Urine Appearance SLT CLOUDY Urine pH 5.5 (5.0-8.0) Ur Specific [place] >= 1.030 (1.001-1.035) Urine Protein 100 H (NEGATIVE) mg/dL Urine Glucose (UA) NEGATIVE (NEGATIVE) mg/dL Urine Ketones 15 H (NEGATIVE) mg/dL Urine Occult Blood LARGE H (NEGATIVE) Urine Nitrite POSITIVE H (NEGATIVE) Urine Bilirubin MODERATE H (NEGATIVE) Urine Ictotest NEGATIVE Urine Urobilinogen 1.0 (<2.0) EU/dL Ur Leukocyte Esterase NEGATIVE (NEGATIVE) Urine RBC 100-150 (0-2/HPF) Urine WBC 1-3 (0-5/HPF) Ur Epithelial Cells FEW (NONE-FEW) Urine Bacteria 1+ H (NEGATIVE) Med Orders - Current: Current Medications Fish Oil (Fish Oil) 1 gm PO BID [facility] Last Admin: 07/17/18 08:34 Dose: 1 gm Heparin Sodium (Porcine) (Heparin Sodium) 5,000 units SUBCUT Q8H [facility] Last Admin: 07/17/18 04:30 Dose: 5,000 units Sodium Chloride (Normal Saline) 1,000 mls @ 999 mls/hr IV ASDIRECTED [facility] Last Admin: 07/16/18 17:15 Dose: 999 mls/hr Ceftriaxone Sodium/Dextrose (Rocephin In Dextrose,Iso-Osm 1 Gm/50 Ml) 50 mls @ 100 mls/hr IV Q24H [facility] Last Admin: 07/16/18 21:29 Dose: 100 mls/hr Latanoprost (Xalatan 0.005% Ophth Soln) 0 ml EYEBOTH BEDTIME [facility] Last Admin: 07/17/18 00:04 Dose: 1 drop Levothyroxine Sodium (Levothyroxine) 25 mcg PO ACBREAKFAST [facility] Last Admin: 07/17/18 06:56 Dose: 25 mcg Oxycodone HCl (Oxycodone) 5 mg PO Q8H PRN PRN Reason: Pain Trazodone HCl (Trazodone) 25 mg PO BEDTIME PRN PRN Reason: Insomnia Triamterene/HCTZ (Maxzide 25-37.5 Mg) 0.5 each PO BIDDIURETIC [facility] Last Admin: 07/17/18 08:34 Dose: 0.5 each Discontinued Medications Sodium Chloride (Normal Saline) 1,000 mls @ 999 mls/hr IV BOLUS ONE Stop: 07/16/18 15:21 Last Admin: 07/16/18 15:02 Dose: 999 mls/hr Ceftriaxone Sodium 1 gm/ (Sodium Chloride) 50 mls @ 100 mls/hr IV Q24H [facility] Last Admin: 07/16/18 23:08 Dose: Not Given - Exam General: Alert, Oriented HEENT: Pupils Equal, EOMI, Mucous Membr. Moist/[place] Neck: Supple Lungs: Clear to Auscultation, Normal Respiratory Effort Cardiovascular: Regular Rate, Regular Rhythm GI/Abdominal Exam: Normal Bowel Sounds, Soft, Non-Tender Extremities: Normal Inspection, Normal Range of Motion, Non-Tender Skin: Warm, Dry, Intact - Problem List Review Problem List Initiated/Reviewed/Updated: Yes - My Orders Last 24 Hours: My Active Orders 07/16/18 20:00 Heparin Sodium 5,000 units SUBCUT Q8H 07/16/18 20:11 Antiembolic Devices [RC] PER UNIT ROUTINE Oxygen Therapy [RC] PRN Up ad Janet [RC] ASDIRECTED VTE/DVT Education [RC] PER UNIT ROUTINE Vital Signs [RC] Q4H PT Evaluation and Treatment [CONS] Routine Sequential Compression Device [OM.PC] Per Unit Routine Resuscitation Status Routine 07/16/18 20:16 oxyCODONE 5 mg PO Q8H PRN traZODone 25 mg PO BEDTIME PRN 07/16/18 21:00 Fish Oil/[place]-3 Fatty Acids [Fish Oil] 1 gm PO BID Latanoprost [Xalatan 0.005% Ophth Soln] 0 ml EYEBOTH BEDTIME cefTRIAXone [Rocephin in Dextrose,Iso-Osm 1 GM/50 ML] 50 ml IV Q24H 07/17/18 07:30 Levothyroxine 25 mcg PO ACBREAKFAST 07/17/18 08:00 HCTZ/Triamterene [Maxzide 25-37.5 MG] 0.5 each PO BIDDIURETIC - Plan Plan:: 78 yo male admitted for generalized weakness with UTI. We will continue Rocephin. PT has been consulted.
[2018-07-17] MEDS: Fluticasone Propionate Nasal Spray 16 GM Bottle NASBOTH SCH (13:28)
[2018-07-17] MEDS: Montelukast 10 MG Tab PO SCH (20:23)
[2018-07-17] MEDS: Loratadine 10 MG Tab PO SCH (20:23)
[2018-07-18] MEDS: Heparin Sodium 5,000 Units/ML Vial SUBCUT SCH ×3 (03:46→20:36)
[2018-07-18 06:15] LABS: CHLORIDE,CL 106 mmol/L (98-107); SODIUM,NA 140 mmol/L (136-148)
[2018-07-18] MEDS: Levothyroxine 25 MCG Tab PO SCH (07:22)
[2018-07-18] MEDS: Hydrochlorothiazide/Triamterene 25-37.5 Tab PO SCH ×2 (08:14→13:43)
[2018-07-18] MEDS: Fish Oil/Omega-3 Fatty Acids 1 Gm Cap PO SCH ×2 (08:14→20:36)
[2018-07-18] MEDS: Fluticasone Propionate Nasal Spray 16 GM Bottle NASBOTH SCH ×2 (08:14→20:41)
--- NOTE | 2018-07-18 10:13 | PCM.PN ---
<No Manzo M - Last Filed: 07/18/18 10:27> - General Info Date of Service: 07/18/18 Admission Dx/Problem (Free Text): Admission Diagnosis/Problem Admission Diagnosis/Problem Weakness Subjective Update: Continues to feel dizzy and popping in ears. felt Flonase helped some yesterday. No chest pain or SOB. Functional Status: Reports: Pain Controlled, Tolerating Diet, Ambulating (with assistance) - Review of Systems General: Reports: Weakness HEENT: Reports: Other (ear popping intermittently. vertigo) Pulmonary: Reports: No Symptoms. Denies: Shortness of Breath Cardiovascular: Reports: No Symptoms. Denies: Chest Pain Gastrointestinal: Reports: No Symptoms. Denies: Abdominal Pain, Nausea, Vomiting Genitourinary: Reports: No Symptoms. Denies: Dysuria, Frequency, Burning Musculoskeletal: Reports: No Symptoms Skin: Reports: No Symptoms Neurological: Reports: No Symptoms Psychiatric: Reports: No Symptoms - Patient Data Vitals - Most Recent: Last Vital Signs Temp 98.3 F 07/18/18 07:00 Pulse 67 07/18/18 07:00 Resp 16 07/18/18 07:00 BP 144/79 H 07/18/18 07:00 Pulse Ox 96 07/18/18 07:00 Orthostatic Blood Pressure [ 149/87 Standing] Orthostatic Blood Pressure [ 178/92 Sitting] Orthostatic Blood Pressure [ 161/109 Supine] Weight - Most Recent: 108.862 kg I&O - Last 24 Hours: Intake & Output 07/17/18 07/18/18 07/18/18 22:59 06:59 14:59 Intake Total 790 240 Output Total 220 470 Balance 570 -230 Lab Results Last 24 Hours: Laboratory Results - last 24 hr 07/18/18 07/18/18 Range/Units 05:30 05:30 WBC 5.53 (4.0-11.0) K/uL RBC 4.18 L (4.50-5.90) M/uL Hgb 11.0 L (13.0-17.0) g/dL Hct 34.1 L (38.0-50.0) % MCV 81.6 (80.0-98.0) fL MCH 26.3 L (27.0-32.0) pg MCHC 32.3 (31.0-37.0) g/dL RDW Std Deviation 43.4 (28.0-62.0) fl RDW Coeff of Ofelia 15 (11.0-15.0) % Plt Count 158 (150-400) K/uL MPV 8.90 (7.40-12.00) fL Neut % (Auto) 65.1 (48.0-80.0) % Lymph % (Auto) 18.4 (16.0-40.0) % [place] % (Auto) 11.0 (0.0-15.0) % Eos % (Auto) 5.1 (0.0-7.0) % Baso % (Auto) 0.4 (0.0-1.5) % Neut # (Auto) 3.6 (1.4-5.7) K/uL Lymph # (Auto) 1.0 (0.6-2.4) K/uL [place] # (Auto) 0.6 (0.0-0.8) K/uL Eos # (Auto) 0.3 (0.0-0.7) K/uL Baso # (Auto) 0.0 (0.0-0.1) K/uL Nucleated RBC % 0.0 /100WBC Nucleated RBCs # 0 K/uL Sodium 140 (136-148) mmol/L Potassium 3.5 (3.5-5.1) mmol/L Chloride 106 (98-107) mmol/L Carbon Dioxide 25.6 (21.0-32.0) mmol/L BUN 21 H (7.0-18.0) mg/dL Creatinine 0.8 (0.8-1.3) mg/dL Est Cr Clr Drug Dosing 74.87 mL/min Estimated GFR (MDRD) > 60.0 ml/min Glucose 88 (74-106) mg/dL Calcium 8.3 L (8.5-10.1) mg/dL Kennedy Results Last 24 Hours: Microbiology 07/16/18 16:12 Urine Culture - Final Urine, Clean Catch No Growth Med Orders - Current: Current Medications Fish Oil (Fish Oil) 1 gm PO BID [facility] [place] Last Admin: 07/18/18 08:14 Dose: 1 gm Fluticasone Propionate (Flonase) 0 gm NASBOTH DAILY [facility] Last Admin: 07/18/18 08:14 Dose: 1 spray Heparin Sodium (Porcine) (Heparin Sodium) 5,000 units SUBCUT Q8H [facility] [place] Last Admin: 07/18/18 03:46 Dose: 5,000 units Sodium Chloride (Normal Saline) 1,000 mls @ 999 mls/hr IV ASDIRECTED [facility] [place] Last Admin: 07/16/18 17:15 Dose: 999 mls/hr Ceftriaxone Sodium/Dextrose (Rocephin In Dextrose,Iso-Osm 1 Gm/50 Ml) 50 mls @ 100 mls/hr IV Q24H [facility] Last Admin: 07/17/18 20:24 Dose: 100 mls/hr Latanoprost (Xalatan 0.005% Ophth Soln) 0 ml EYEBOTH BEDTIME [facility] [place] Last Admin: 07/17/18 20:24 Dose: 1 drop Levothyroxine Sodium (Levothyroxine) 25 mcg PO ACBREAKFAST [facility] [place] Last Admin: 07/18/18 07:22 Dose: 25 mcg Loratadine (Claritin) 10 mg PO BEDTIME [facility] [place] Last Admin: 07/17/18 20:23 Dose: 10 mg Montelukast Sodium (Singulair) 10 mg PO BEDTIME [facility] [place] Last Admin: 07/17/18 20:23 Dose: 10 mg Oxycodone HCl (Oxycodone) 5 mg PO Q8H PRN PRN Reason: Pain Trazodone HCl (Trazodone) 25 mg PO BEDTIME PRN PRN Reason: Insomnia Triamterene/HCTZ (Maxzide 25-37.5 Mg) 0.5 each PO BIDDIURETIC [facility] Last Admin: 07/18/18 08:14 Dose: 0.5 each Discontinued Medications Sodium Chloride (Normal Saline) 1,000 mls @ 999 mls/hr IV BOLUS ONE Stop: 07/16/18 15:21 Last Admin: 07/16/18 15:02 Dose: 999 mls/hr Ceftriaxone Sodium 1 gm/ (Sodium Chloride) 50 mls @ 100 mls/hr IV Q24H [facility] Last Admin: 07/16/18 23:08 Dose: Not Given - Exam General: Alert, Oriented, Cooperative, No Acute Distress Neck: Supple Lungs: Clear to Auscultation, Normal Respiratory Effort Cardiovascular: Regular Rate, Regular Rhythm GI/Abdominal Exam: Normal Bowel Sounds, Soft, Non-Tender, No Mass Extremities: Normal Inspection, Normal Range of Motion, Non-Tender, No Pedal Edema Skin: Warm, Dry, Other (radiation burn to posterior L shoulder) Neurological: No New Focal Deficit Psy/Mental Status: Alert, Normal Affect, Normal Mood - Problem List & Annotations (1) Vertigo SNOMED Code(s): 002648012 Code(s): R42 - DIZZINESS AND GIDDINESS Status: Acute Current Visit: Yes (2) Ear barotrauma SNOMED Code(s): 40823985 Code(s): T70.0XXA - OTITIC BAROTRAUMA, INITIAL ENCOUNTER Status: Acute Current Visit: Yes Qualifiers: Encounter type: initial encounter Qualified Code(s): T70.0XXA - Otitic barotrauma, initial encounter (3) Generalized weakness SNOMED Code(s): 09844102 Code(s): R53.1 - WEAKNESS Status: Acute Current Visit: Yes (4) Urinary tract infection SNOMED Code(s): 82529289 Code(s): N39.0 - URINARY TRACT INFECTION, SITE NOT SPECIFIED Status: Acute Current Visit: Yes Qualifiers: Urinary tract infection type: site unspecified Hematuria presence: with hematuria Qualified Code(s): N39.0 - Urinary tract infection, site not specified; R31.9 - Hematuria, unspecified (5) Bladder cancer metastasized to bone SNOMED Code(s): 52473734, 324268055 Code(s): C67.9 - MALIGNANT NEOPLASM OF BLADDER, UNSPECIFIED; C79.51 - SECONDARY MALIGNANT NEOPLASM OF BONE Status: Chronic Current Visit: Yes (6) HTN (hypertension) SNOMED Code(s): 13978281 Code(s): I10 - ESSENTIAL (PRIMARY) HYPERTENSION Status: Chronic Current Visit: Yes Qualifiers: Hypertension type: essential hypertension Qualified Code(s): I10 - Essential (primary) hypertension (7) JAQUAN (obstructive sleep apnea) SNOMED Code(s): 35551675 Code(s): G47.33 - OBSTRUCTIVE SLEEP APNEA (ADULT) (PEDIATRIC) Status: Chronic Current Visit: Yes - Problem List Review Problem List Initiated/Reviewed/Updated: Yes - My Orders Last 24 Hours: My Active Orders 07/17/18 12:45 Patient Status [ADT] Stat Fluticasone Propionate [Flonase] See Dose Instructions NASBOTH DAILY 07/17/18 21:00 Loratadine [Claritin] 10 mg PO BEDTIME Montelukast [Singulair] 10 mg PO BEDTIME - Plan Plan:: 78 yo male admitted for generalized weakness with UTI. 1. Generalized weakness: Stemming from inability to ambulate and move around like normal after barotrauma to inner ear. Started Claritin and Singulair along with Flonase yesterday. [place] things open slightly. Will increase Flonase to BID. Plan is to go to [place] for rehabilitation and family has ENT appointment August 28 in [facility]. PT has been consulted. 2. UTI : UC pending. We will continue Rocephin. 3. HTN: Stable, continue Maxide VTE prophylaxis: Heparin Dispo: Pending placement. <Kelton Arana - Last Filed: 07/18/18 17:32> - General Info Admission Dx/Problem (Free Text): I have seen and examined the patient independently of No Manzo CNP. I have discussed the case with her. I have reviewed and agreed with the plan of treatment as outlined for this patient by her. Please see orders. - Patient Data Vitals - Most Recent: Last Vital Signs Temp 36.7 C 07/18/18 15:54 Pulse 77 07/18/18 15:54 Resp 22 H 07/18/18 15:54 BP 138/68 07/18/18 15:54 Pulse Ox 94 L 07/18/18 15:54 Orthostatic Blood Pressure [ 149/87 Standing] Orthostatic Blood Pressure [ 178/92 Sitting] Orthostatic Blood Pressure [ 161/109 Supine] I&O - Last 24 Hours: Intake & Output 07/18/18 07/18/18 07/18/18 06:59 14:59 22:59 Intake Total 240 840 Output Total 470 615 Balance -230 225 Lab Results Last 24 Hours: Laboratory Results - last 24 hr 07/18/18 07/18/18 Range/Units 05:30 05:30 WBC 5.53 (4.0-11.0) K/uL RBC 4.18 L (4.50-5.90) M/uL Hgb 11.0 L (13.0-17.0) g/dL Hct 34.1 L (38.0-50.0) % MCV 81.6 (80.0-98.0) fL MCH 26.3 L (27.0-32.0) pg MCHC 32.3 (31.0-37.0) g/dL RDW Std Deviation 43.4 (28.0-62.0) fl RDW Coeff of [place] 15 (11.0-15.0) % Plt Count 158 (150-400) K/uL MPV 8.90 (7.40-12.00) fL Neut % (Auto) 65.1 (48.0-80.0) % Lymph % (Auto) 18.4 (16.0-40.0) % [place] % (Auto) 11.0 (0.0-15.0) % Eos % (Auto) 5.1 (0.0-7.0) % Baso % (Auto) 0.4 (0.0-1.5) % Neut # (Auto) 3.6 (1.4-5.7) K/uL Lymph # (Auto) 1.0 (0.6-2.4) K/uL [place] # (Auto) 0.6 (0.0-0.8) K/uL Eos # (Auto) 0.3 (0.0-0.7) K/uL Baso # (Auto) 0.0 (0.0-0.1) K/uL Nucleated RBC % 0.0 /100WBC Nucleated RBCs # 0 K/uL Sodium 140 (136-148) mmol/L Potassium 3.5 (3.5-5.1) mmol/L Chloride 106 (98-107) mmol/L Carbon Dioxide 25.6 (21.0-32.0) mmol/L BUN 21 H (7.0-18.0) mg/dL Creatinine 0.8 (0.8-1.3) mg/dL Est Cr Clr Drug Dosing 74.87 mL/min Estimated GFR (MDRD) > 60.0 ml/min Glucose 88 (74-106) mg/dL Calcium 8.3 L (8.5-10.1) mg/dL [place] Results Last 24 Hours: Microbiology 07/16/18 16:12 Urine Culture - Final Urine, Clean Catch No Growth Med Orders - Current: Current Medications Fish Oil (Fish Oil) 1 gm PO BID [facility] Last Admin: 07/18/18 08:14 Dose: 1 gm Fluticasone Propionate (Flonase) 0 gm NASBOTH BID [facility] Heparin Sodium (Porcine) (Heparin Sodium) 5,000 units SUBCUT Q8H [facility] Last Admin: 07/18/18 11:06 Dose: 5,000 units Sodium Chloride (Normal Saline) 1,000 mls @ 999 mls/hr IV ASDIRECTED [facility] Last Admin: 07/16/18 17:15 Dose: 999 mls/hr Ceftriaxone Sodium/Dextrose (Rocephin In Dextrose,Iso-Osm 1 Gm/50 Ml) 50 mls @ 100 mls/hr IV Q24H [facility] Last Admin: 07/17/18 20:24 Dose: 100 mls/hr Latanoprost (Xalatan 0.005% [facility]) 0 ml EYEBOTH BEDTIME [facility] Last Admin: 07/17/18 20:24 Dose: 1 drop Levothyroxine Sodium (Levothyroxine) 25 mcg PO ACBREAKFAST [facility] Last Admin: 07/18/18 07:22 Dose: 25 mcg Loratadine (Claritin) 10 mg PO BEDTIME [facility] Last Admin: 07/17/18 20:23 Dose: 10 mg Meclizine HCl (Antivert) 50 mg PO BID [facility] Last Admin: 07/18/18 13:44 Dose: 50 mg Montelukast Sodium (Singulair) 10 mg PO BEDTIME [facility] Last Admin: 07/17/18 20:23 Dose: 10 mg Oxycodone HCl (Oxycodone) 5 mg PO Q8H PRN PRN Reason: Pain Last Admin: 07/18/18 11:02 Dose: 5 mg Trazodone HCl (Trazodone) 25 mg PO BEDTIME PRN PRN Reason: Insomnia Triamterene/HCTZ (Maxzide 25-37.5 Mg) 0.5 each PO BIDDIURETIC [facility] Last Admin: 07/18/18 13:43 Dose: 0.5 each Discontinued Medications Fluticasone Propionate (Flonase) 0 gm NASBOTH DAILY [facility] Last Admin: 07/18/18 08:14 Dose: 1 spray Sodium Chloride (Normal Saline) 1,000 mls @ 999 mls/hr IV BOLUS ONE Stop: 07/16/18 15:21 Last Admin: 07/16/18 15:02 Dose: 999 mls/hr Ceftriaxone Sodium 1 gm/ (Sodium Chloride) 50 mls @ 100 mls/hr IV Q24H [facility] Last Admin: 07/16/18 23:08 Dose: Not Given
[2018-07-18] MEDS: oxyCODONE 5 MG Tab PO PRN (11:02)
[2018-07-18] MEDS: Meclizine 25 MG Tab PO SCH ×2 (13:44→20:36)
[2018-07-18] MEDS: Montelukast 10 MG Tab PO SCH (20:36)
[2018-07-18] MEDS: Loratadine 10 MG Tab PO SCH (20:36)
[2018-07-18] MEDS: Latanoprost 0.005% Ophth Soln 2.5 ML Bottle EYEBOTH SCH (20:37)
[2018-07-19] MEDS: Heparin Sodium 5,000 Units/ML Vial SUBCUT SCH ×3 (04:59→20:01)
[2018-07-19 05:53] LABS: CHLORIDE,CL 104 mmol/L (98-107); SODIUM,NA 141 mmol/L (136-148)
[2018-07-19] MEDS: Levothyroxine 25 MCG Tab PO SCH (07:15)
[2018-07-19] MEDS ORDERED: traMADol 50 MG Tab PO PRN (07:55)
[2018-07-19] MEDS: Meclizine 25 MG Tab PO SCH ×2 (09:14→20:00)
[2018-07-19] MEDS: Fish Oil/Omega-3 Fatty Acids 1 Gm Cap PO SCH ×2 (09:16→20:01)
[2018-07-19] MEDS: Metoprolol Tartrate 50 MG Tab PO SCH ×2 (09:17→20:03)
[2018-07-19] MEDS: Hydrochlorothiazide/Triamterene 25-37.5 Tab PO SCH ×2 (09:17→13:58)
[2018-07-19] MEDS: Fluticasone Propionate Nasal Spray 16 GM Bottle NASBOTH SCH ×2 (09:24→20:02)
--- NOTE | 2018-07-19 09:59 | PCM.PN ---
<No Manzo M - Last Filed: 07/19/18 09:56> - General Info Date of Service: 07/19/18 Admission Dx/Problem (Free Text): Weakness Subjective Update: Feeling good this morning, no dizziness. Ears feel full now, better overnight. No chest pain or SOB. Functional Status: Reports: Tolerating Diet, Ambulating, Urinating - Review of Systems General: Reports: No Symptoms. Denies: Fever, Weakness, Fatigue, Malaise HEENT: Denies: Ear Pain (fullness noted with intermittent popping), Headaches, Sore Throat, Visual Changes Pulmonary: Reports: No Symptoms. Denies: Shortness of Breath, Cough, Sputum Cardiovascular: Reports: No Symptoms. Denies: Chest Pain Gastrointestinal: Reports: No Symptoms. Denies: Abdominal Pain, Nausea, Vomiting Genitourinary: Reports: No Symptoms. Denies: Dysuria, Frequency, Burning Musculoskeletal: Reports: No Symptoms Skin: Reports: No Symptoms Neurological: Reports: No Symptoms Psychiatric: Reports: No Symptoms - Patient Data Vitals - Most Recent: Last Vital Signs Temp 98.0 F 07/19/18 08:00 Pulse 67 07/19/18 09:17 Resp 15 07/19/18 08:00 BP 145/74 H 07/19/18 09:17 Pulse Ox 95 07/19/18 08:00 Orthostatic Blood Pressure [ 149/87 Standing] Orthostatic Blood Pressure [ 178/92 Sitting] Orthostatic Blood Pressure [ 161/109 Supine] Weight - Most Recent: 108.862 kg I&O - Last 24 Hours: Intake & Output 07/18/18 07/19/18 07/19/18 22:59 06:59 14:59 Intake Total 840 400 Output Total 615 950 Balance 225 -550 Lab Results Last 24 Hours: Laboratory Results - last 24 hr 07/19/18 Range/Units 04:50 Sodium 141 (136-148) mmol/L Potassium 3.9 (3.5-5.1) mmol/L Chloride 104 (98-107) mmol/L Carbon Dioxide 30.1 (21.0-32.0) mmol/L BUN 23 H (7.0-18.0) mg/dL Creatinine 0.9 (0.8-1.3) mg/dL Est Cr Clr Drug Dosing 66.55 mL/min Estimated GFR (MDRD) > 60.0 ml/min Glucose 94 (74-106) mg/dL Calcium 8.4 L (8.5-10.1) mg/dL [facility] Results Last 24 Hours: Microbiology 07/16/18 16:12 Urine Culture - Final Urine, Clean Catch No Growth Med Orders - Current: Current Medications Fish Oil (Fish Oil) 1 gm PO BID [facility] Last Admin: 07/19/18 09:16 Dose: 1 gm Fluticasone Propionate (Flonase) 0 gm NASBOTH BID [facility] Last Admin: 07/19/18 09:24 Dose: 2 spray Heparin Sodium (Porcine) (Heparin Sodium) 5,000 units SUBCUT Q8H [facility] Last Admin: 07/19/18 04:59 Dose: 5,000 units Sodium Chloride (Normal Saline) 1,000 mls @ 999 mls/hr IV ASDIRECTED [facility] Last Admin: 07/16/18 17:15 Dose: 999 mls/hr Latanoprost (Xalatan 0.005% Ophth Soln) 0 ml EYEBOTH BEDTIME [facility] Last Admin: 07/18/18 20:37 Dose: 1 drop Levothyroxine Sodium (Levothyroxine) 25 mcg PO ACBREAKFAST [facility] Last Admin: 07/19/18 07:15 Dose: 25 mcg Loratadine (Claritin) 10 mg PO BEDTIME [facility] Last Admin: 07/18/18 20:36 Dose: 10 mg Meclizine HCl (Antivert) 50 mg PO BID [facility] Last Admin: 07/19/18 09:14 Dose: 50 mg Metoprolol Tartrate (Lopressor) 50 mg PO BID [facility] Last Admin: 07/19/18 09:17 Dose: 50 mg Montelukast Sodium (Singulair) 10 mg PO BEDTIME [facility] Last Admin: 07/18/18 20:36 Dose: 10 mg Oxycodone HCl (Oxycodone) 5 mg PO Q8H PRN PRN Reason: Pain Last Admin: 07/18/18 11:02 Dose: 5 mg Tramadol HCl (Ultram) 50 mg PO Q6H PRN PRN Reason: Pain Trazodone HCl (Trazodone) 25 mg PO BEDTIME PRN PRN Reason: Insomnia Triamterene/HCTZ (Maxzide 25-37.5 Mg) 0.5 each PO BIDDIURETIC [facility] Last Admin: 07/19/18 09:17 Dose: 0.5 each Discontinued Medications Fluticasone Propionate (Flonase) 0 gm NASBOTH DAILY [facility] Last Admin: 07/18/18 08:14 Dose: 1 spray Sodium Chloride (Normal Saline) 1,000 mls @ 999 mls/hr IV BOLUS ONE Stop: 07/16/18 15:21 Last Admin: 07/16/18 15:02 Dose: 999 mls/hr Ceftriaxone Sodium 1 gm/ (Sodium Chloride) 50 mls @ 100 mls/hr IV Q24H [facility] Last Admin: 07/16/18 23:08 Dose: Not Given Ceftriaxone Sodium/Dextrose (Rocephin In Dextrose,Iso-Osm 1 Gm/50 Ml) 50 mls @ 100 mls/hr IV Q24H [facility] Last Admin: 07/18/18 20:37 Dose: 100 mls/hr - Exam General: Alert, Oriented, Cooperative, No Acute Distress Neck: Supple Lungs: Clear to Auscultation, Normal Respiratory Effort Cardiovascular: Regular Rate, Regular Rhythm GI/Abdominal Exam: Normal Bowel Sounds, Soft, Non-Tender Extremities: Normal Inspection, Normal Range of Motion, Non-Tender, No Pedal Edema Neurological: No New Focal Deficit Psy/Mental Status: Alert, Normal Affect, Normal Mood - Problem List & Annotations (1) Vertigo SNOMED Code(s): 505863681 Code(s): R42 - DIZZINESS AND GIDDINESS Status: Acute Current Visit: Yes (2) Ear barotrauma SNOMED Code(s): 15312770 Code(s): T70.0XXA - OTITIC BAROTRAUMA, INITIAL ENCOUNTER Status: Acute Current Visit: Yes Qualifiers: Encounter type: initial encounter Qualified Code(s): T70.0XXA - Otitic barotrauma, initial encounter (3) Generalized weakness SNOMED Code(s): 20560295 Code(s): R53.1 - WEAKNESS Status: Acute Current Visit: Yes (4) Urinary tract infection SNOMED Code(s): 55535093 Code(s): N39.0 - URINARY TRACT INFECTION, SITE NOT SPECIFIED Status: Acute Current Visit: Yes Qualifiers: Urinary tract infection type: site unspecified Hematuria presence: with hematuria Qualified Code(s): N39.0 - Urinary tract infection, site not specified; R31.9 - Hematuria, unspecified (5) Bladder cancer metastasized to bone SNOMED Code(s): 93231660, 177932771 Code(s): C67.9 - MALIGNANT NEOPLASM OF BLADDER, UNSPECIFIED; C79.51 - SECONDARY MALIGNANT NEOPLASM OF BONE Status: Chronic Current Visit: Yes (6) HTN (hypertension) SNOMED Code(s): 96497950 Code(s): I10 - ESSENTIAL (PRIMARY) HYPERTENSION Status: Chronic Current Visit: Yes Qualifiers: Hypertension type: essential hypertension Qualified Code(s): I10 - Essential (primary) hypertension (7) JAQUAN (obstructive sleep apnea) SNOMED Code(s): 00958200 Code(s): G47.33 - OBSTRUCTIVE SLEEP APNEA (ADULT) (PEDIATRIC) Status: Chronic Current Visit: Yes - Problem List Review Problem List Initiated/Reviewed/Updated: Yes - My Orders Last 24 Hours: My Active Orders 07/18/18 10:28 Presales Engineer Discontinue [Cardiac Monitoring Discontinue] [RC] Click to Edit 07/18/18 12:45 Meclizine [Antivert] 50 mg PO BID 07/18/18 21:00 Fluticasone Propionate [Flonase] See Dose Instructions NASBOTH BID 07/19/18 07:55 traMADol [Ultram] 50 mg PO Q6H PRN 07/19/18 09:00 Metoprolol Tartrate [Lopressor] 50 mg PO BID 07/20/18 05:11 BMP [BASIC METABOLIC PANEL,BMP] [CHEM] AM - Plan Plan:: 78 yo male admitted for generalized weakness with UTI. 1. Generalized weakness: Stemming from inability to ambulate and move around like normal after barotrauma to inner ear. Continue Claritin, Singulair and Flonase. No dizziness noted this morning. Plan is to go to [place] for rehabilitation and family has ENT appointment August 28 in [facility]. PT has been consulted. 2. UTI : UC no growth. We will discontinue Rocephin. 3. HTN: Stable, continue Maxide VTE prophylaxis: Heparin Dispo: Pending placement, [place] tomorrow. <Kelton Arana - Last Filed: 07/19/18 12:36> - General Info Admission Dx/Problem (Free Text): I have seen and examined the patient independently of No Manzo CNP. I have discussed the case with her. I have reviewed and agreed with the plan of treatment as outlined for this patient by her. Please see orders. - Patient Data Vitals - Most Recent: Last Vital Signs Temp 36.7 C 07/19/18 08:00 Pulse 67 07/19/18 09:17 Resp 15 07/19/18 08:00 BP 145/74 H 07/19/18 09:17 Pulse Ox 95 07/19/18 08:00 Orthostatic Blood Pressure [ 149/87 Standing] Orthostatic Blood Pressure [ 178/92 Sitting] Orthostatic Blood Pressure [ 161/109 Supine] I&O - Last 24 Hours: Intake & Output 07/18/18 07/19/18 07/19/18 22:59 06:59 14:59 Intake Total 840 400 Output Total 615 950 Balance 225 -550 Lab Results Last 24 Hours: Laboratory Results - last 24 hr 07/19/18 Range/Units 04:50 Sodium 141 (136-148) mmol/L Potassium 3.9 (3.5-5.1) mmol/L Chloride 104 (98-107) mmol/L Carbon Dioxide 30.1 (21.0-32.0) mmol/L BUN 23 H (7.0-18.0) mg/dL Creatinine 0.9 (0.8-1.3) mg/dL Est Cr Clr Drug Dosing 66.55 mL/min Estimated GFR (MDRD) > 60.0 ml/min Glucose 94 (74-106) mg/dL Calcium 8.4 L (8.5-10.1) mg/dL [facility] Results Last 24 Hours: Microbiology 07/16/18 16:12 Urine Culture - Final Urine, Clean Catch No Growth Med Orders - Current: Current Medications Fish Oil (Fish Oil) 1 gm PO BID [facility] Last Admin: 07/19/18 09:16 Dose: 1 gm Fluticasone Propionate (Flonase) 0 gm NASBOTH BID [facility] Last Admin: 07/19/18 09:24 Dose: 2 spray Heparin Sodium (Porcine) (Heparin Sodium) 5,000 units SUBCUT Q8H [facility] Last Admin: 07/19/18 11:42 Dose: 5,000 units Sodium Chloride (Normal Saline) 1,000 mls @ 999 mls/hr IV ASDIRECTED [facility] Last Admin: 07/16/18 17:15 Dose: 999 mls/hr Latanoprost (Xalatan 0.005% Oph Soln) 0 ml EYEBOTH BEDTIME [facility] Last Admin: 07/18/18 20:37 Dose: 1 drop Levothyroxine Sodium (Levothyroxine) 25 mcg PO ACBREAKFAST [facility] Last Admin: 07/19/18 07:15 Dose: 25 mcg Loratadine (Claritin) 10 mg PO BEDTIME [facility] Last Admin: 07/18/18 20:36 Dose: 10 mg Meclizine HCl (Antivert) 50 mg PO BID [facility] Last Admin: 07/19/18 09:14 Dose: 50 mg Metoprolol Tartrate (Lopressor) 50 mg PO BID [facility] Last Admin: 07/19/18 09:17 Dose: 50 mg Montelukast Sodium (Singulair) 10 mg PO BEDTIME [facility] Last Admin: 07/18/18 20:36 Dose: 10 mg Oxycodone HCl (Oxycodone) 5 mg PO Q8H PRN PRN Reason: Pain Last Admin: 07/18/18 11:02 Dose: 5 mg Tramadol HCl (Ultram) 50 mg PO Q6H PRN PRN Reason: Pain Last Admin: 07/19/18 11:39 Dose: 50 mg Trazodone HCl (Trazodone) 25 mg PO BEDTIME PRN PRN Reason: Insomnia Triamterene/HCTZ (Maxzide 25-37.5 Mg) 0.5 each PO BIDDIURETIC [facility] Last Admin: 07/19/18 09:17 Dose: 0.5 each Discontinued Medications Fluticasone Propionate (Flonase) 0 gm NASBOTH DAILY [facility] Last Admin: 07/18/18 08:14 Dose: 1 spray Sodium Chloride (Normal Saline) 1,000 mls @ 999 mls/hr IV BOLUS ONE Stop: 07/16/18 15:21 Last Admin: 07/16/18 15:02 Dose: 999 mls/hr Ceftriaxone Sodium 1 gm/ (Sodium Chloride) 50 mls @ 100 mls/hr IV Q24H [facility] Last Admin: 07/16/18 23:08 Dose: Not Given Ceftriaxone Sodium/Dextrose (Rocephin In Dextrose,Iso-Osm 1 Gm/50 Ml) 50 mls @ 100 mls/hr IV Q24H [facility] Last Admin: 07/18/18 20:37 Dose: 100 mls/hr
[2018-07-19] MEDS: Montelukast 10 MG Tab PO SCH (20:01)
[2018-07-19] MEDS: Loratadine 10 MG Tab PO SCH (20:01)
[2018-07-19] MEDS: Latanoprost 0.005% Ophth Soln 2.5 ML Bottle EYEBOTH SCH (20:02)
[2018-07-20] MEDS: Heparin Sodium 5,000 Units/ML Vial SUBCUT SCH ×2 (04:24→12:20)
[2018-07-20] MEDS: Levothyroxine 25 MCG Tab PO SCH ×2 (04:25→06:30)
[2018-07-20] MEDS: oxyCODONE 5 MG Tab PO PRN (04:27)
[2018-07-20] MEDS: Hydrochlorothiazide/Triamterene 25-37.5 Tab PO SCH (08:16)
[2018-07-20] MEDS: Metoprolol Tartrate 50 MG Tab PO SCH (08:18)
[2018-07-20] MEDS: Meclizine 25 MG Tab PO SCH (08:19)
[2018-07-20] MEDS: Fish Oil/Omega-3 Fatty Acids 1 Gm Cap PO SCH (08:19)
[2018-07-20] MEDS: Fluticasone Propionate Nasal Spray 16 GM Bottle NASBOTH SCH (08:19)
--- NOTE | 2018-07-20 08:22 | PCM.DCSUM1 ---
<No Manzo M - Last Filed: 07/20/18 09:28> Discharge Summary - Hospital Course Brief History: 78 yo male with pmh of metastatic bladder cancer who is on immunotherapy who presents with one week history of generalized weakness. He reports multiple falls at home as his knees give out. He reports that he is no longer strong enough to walk. He denies any numbness, bladder or stool incontinence. He reports three weeks of vertigo since a flight back from [place] when his ears did not pop. He has an appointment with an research and evaluation manager on Tuesday. He denies any fevers or dysuria. Diagnosis: Stroke: No - Discharge Data Discharge Date: 07/20/18 Discharge Disposition: DC/Tfer to SNF 03 Condition: Good - Discharge Diagnosis/Problem(s) (1) Vertigo SNOMED Code(s): 878873387 ICD Code: R42 - DIZZINESS AND GIDDINESS Status: Acute Current Visit: Yes (2) Ear barotrauma SNOMED Code(s): 89631764 ICD Code: T70.0XXA - OTITIC BAROTRAUMA, INITIAL ENCOUNTER Status: Acute Current Visit: Yes Qualifiers: Encounter type: initial encounter Qualified Code(s): T70.0XXA - Otitic barotrauma, initial encounter (3) Generalized weakness SNOMED Code(s): 27741843 ICD Code: R53.1 - WEAKNESS Status: Acute Current Visit: Yes (4) Urinary tract infection SNOMED Code(s): 94704496 ICD Code: N39.0 - URINARY TRACT INFECTION, SITE NOT SPECIFIED Status: Acute Current Visit: Yes Qualifiers: Urinary tract infection type: site unspecified Hematuria presence: with hematuria Qualified Code(s): N39.0 - Urinary tract infection, site not specified; R31.9 - Hematuria, unspecified (5) Bladder cancer metastasized to bone SNOMED Code(s): 70066867, 590682533 ICD Code: C67.9 - MALIGNANT NEOPLASM OF BLADDER, UNSPECIFIED; C79.51 - SECONDARY MALIGNANT NEOPLASM OF BONE Status: Chronic Current Visit: Yes (6) HTN (hypertension) SNOMED Code(s): 99292262 ICD Code: I10 - ESSENTIAL (PRIMARY) HYPERTENSION Status: Chronic Current Visit: Yes Qualifiers: Hypertension type: essential hypertension Qualified Code(s): I10 - Essential (primary) hypertension (7) JAQUAN (obstructive sleep apnea) SNOMED Code(s): 36808031 ICD Code: G47.33 - OBSTRUCTIVE SLEEP APNEA (ADULT) (PEDIATRIC) Status: Chronic Current Visit: Yes - Patient Summary/Data Consults: Consultations 07/16/18 20:11 PT Evaluation and Treatment [CONS] Routine - Patient Instructions Diet: Regular Diet as Tolerated Activity: As Tolerated Showering/Bathing: May Shower Notify Provider of: Fever, Increased Pain, Swelling and Redness, Drainage, Nausea and/or Vomiting Other/Special Instructions: PT/OT to evaluate and treat - Discharge Plan *PRESCRIPTION DRUG MONITORING PROGRAM REVIEWED*: Not Applicable *COPY OF PRESCRIPTION DRUG MONITORING REPORT IN PATIENT LADAN: Not Applicable Prescriptions/Med Rec: Fluticasone Propionate [Flonase] 2 spray NASBOTH DAILY #1 bottle Montelukast [Singulair] 10 mg PO BEDTIME #30 tablet oxyCODONE 5 mg PO Q8H PRN #15 tab PRN Reason: Pain Home Medications: Home Meds Triamterene/Hydrochlorothiazid [Triamterene-HCTZ 37.5-25 MG] 0.5 tab PO BID 07/24 [History] Fish Oil/[place]-3 Fatty Acids [Fish Oil 1,000 MG] 1 tab PO BID 08/26/16 [History] Latanoprost [Xalatan 0.005% Ophth Soln] 1 drop EYEBOTH BEDTIME 08/26/16 [History ] traZODone HCl [Trazodone HCl] 25 mg PO BEDTIME PRN 08/26/16 [History] Levothyroxine 50 mcg PO ACBREAKFAST 03/18/18 [History] Acetaminophen [Pain Relief Extra Strength] 500 mg PO BID PRN 07/18/18 [History] Loratadine [Claritin] 10 mg PO DAILY 07/18/18 [History] Meclizine [Antivert] 50 mg PO BID 07/18/18 [History] Metoprolol Tartrate 50 mg PO BID 07/18/18 [History] Ondansetron [Zofran] 8 mg PO Q8H PRN 07/18/18 [History] Potassium Chloride [Klor-Con 10] 10 meq PO Q2D 07/18/18 [History] Prochlorperazine Maleate [Compazine] 10 mg PO TID PRN 07/18/18 [History] Fluticasone Propionate [Flonase] 2 spray NASBOTH DAILY #1 bottle 07/20/18 [Rx] Montelukast [Singulair] 10 mg PO BEDTIME #30 tablet 07/20/18 [Rx] oxyCODONE 5 mg PO Q8H PRN #15 tab 07/20/18 [Rx] Referrals: Jesse Tobias MD [Ordering Only Provider] - 08/28/18 Joe Jasso MD [Physician] - (Follow-up with Dr. Jasso on next [place] rounds) - Discharge Summary/Plan Comment DC Time >30 min.: No Discharge Summary/Plan Comment: Discharge Diagnoses: Generalized weakness Deconditioning Vertigo Inner ear barotrauma HTN Bladder CA with mets to L shoulder Pain to L shoulder, radiation burn Hypothyroidism Reginald was admitted secondary to extreme weakness from limited ability to ambulate secondary to vertigo and recent inner ear barotrauma. He was thought to have UTI and treated for 3 days on Rocephin, but UC returned with no growth. PT/OT consulted toe valuate and treat and felt if was unsafe for him to return home with how weak and deconditioned he was. He has an appointment with Dr Tobias, ENT in [place] the end of August. Reginald's sister had the same symptoms, but lives in [place] and was able to see specialists quickly to help with barotrauma. We did start Flonase intranasal and Claritin and Singulair to help open things up. He has seen some improvement. Vertigo isn't as back, but balance at times is concerning. I spoke with Dr Jasso, who has kindly accepted patient for transfer to [place] for short term rehabilitation. He does have a metastasis to L shoulder,in which he has had radiation to. He has pain intermittently to this shoulder, we trialed Oxycodone and he feels this helps quickly and makes pain more comfortable than his Tramadol. - General Info Date of Service: 07/20/18 Admission Dx/Problem (Free Text: Generalized weakness Subjective Update: Doing well this morning, eating breakfast. No chest pain or SOB. No vertigo, but balance felt very off getting up from bed. No other concerns and is eager to go to [place] today for rehabilitation. Functional Status: Reports: Pain Controlled, Tolerating Diet, Ambulating, Urinating - Review of Systems General: Reports: Weakness (generalized). Denies: Fever HEENT: Reports: Other (unsteadiness upon standing). Denies: Headaches, Sore Throat, Visual Changes Pulmonary: Reports: No Symptoms. Denies: Shortness of Breath Cardiovascular: Reports: No Symptoms. Denies: Chest Pain Gastrointestinal: Reports: No Symptoms. Denies: Abdominal Pain, Nausea, Vomiting Genitourinary: Reports: No Symptoms Musculoskeletal: Reports: No Symptoms Skin: Reports: No Symptoms Neurological: Reports: No Symptoms Psychiatric: Reports: No Symptoms - Patient Data Vitals - Most Recent: Last Vital Signs Temp 97.2 F 07/20/18 07:20 Pulse 68 07/20/18 08:18 Resp 16 07/20/18 07:20 BP 116/74 07/20/18 08:18 Pulse Ox 96 07/20/18 07:20 Orthostatic Blood Pressure [ 149/87 Standing] Orthostatic Blood Pressure [ 178/92 Sitting] Orthostatic Blood Pressure [ 161/109 Supine] Weight - Most Recent: 108.862 kg I&O - Last 24 hours: Intake & Output 07/19/18 07/20/18 07/20/18 22:59 06:59 14:59 Intake Total 850 200 Output Total 950 1050 Balance -100 -850 Med Orders - Current: Current Medications Fish Oil (Fish Oil) 1 gm PO BID [facility] Last Admin: 07/20/18 08:19 Dose: 1 gm Fluticasone Propionate (Flonase) 0 gm NASBOTH BID [facility] Last Admin: 07/20/18 08:19 Dose: 2 spray Heparin Sodium (Porcine) (Heparin Sodium) 5,000 units SUBCUT Q8H [facility] Last Admin: 07/20/18 04:24 Dose: 5,000 units Sodium Chloride (Normal Saline) 1,000 mls @ 999 mls/hr IV ASDIRECTED [facility] Last Admin: 07/16/18 17:15 Dose: 999 mls/hr Latanoprost (Xalatan 0.005% Ophth Soln) 0 ml EYEBOTH BEDTIME [facility] Last Admin: 07/19/18 20:02 Dose: 1 drop Levothyroxine Sodium (Levothyroxine) 25 mcg PO ACBREAKFAST [facility] Last Admin: 07/20/18 06:30 Dose: Not Given Loratadine (Claritin) 10 mg PO BEDTIME [facility] Last Admin: 07/19/18 20:01 Dose: 10 mg Meclizine HCl (Antivert) 50 mg PO BID [facility] Last Admin: 07/20/18 08:19 Dose: 50 mg Metoprolol Tartrate (Lopressor) 50 mg PO BID [facility] Last Admin: 07/20/18 08:18 Dose: 50 mg Montelukast Sodium (Singulair) 10 mg PO BEDTIME [facility] Last Admin: 07/19/18 20:01 Dose: 10 mg Oxycodone HCl (Oxycodone) 5 mg PO Q8H PRN PRN Reason: Pain Last Admin: 07/20/18 04:27 Dose: 5 mg Tramadol HCl (Ultram) 50 mg PO Q6H PRN PRN Reason: Pain Last Admin: 07/19/18 11:39 Dose: 50 mg Trazodone HCl (Trazodone) 25 mg PO BEDTIME PRN PRN Reason: Insomnia Triamterene/HCTZ (Maxzide 25-37.5 Mg) 0.5 each PO BIDDIURETIC [facility] Last Admin: 07/20/18 08:16 Dose: 0.5 each Discontinued Medications Fluticasone Propionate (Flonase) 0 gm NASBOTH DAILY [facility] Last Admin: 07/18/18 08:14 Dose: 1 spray Sodium Chloride (Normal Saline) 1,000 mls @ 999 mls/hr IV BOLUS ONE Stop: 07/16/18 15:21 Last Admin: 07/16/18 15:02 Dose: 999 mls/hr Ceftriaxone Sodium 1 gm/ (Sodium Chloride) 50 mls @ 100 mls/hr IV Q24H [facility] Last Admin: 07/16/18 23:08 Dose: Not Given Ceftriaxone Sodium/Dextrose (Rocephin In Dextrose,Iso-Osm 1 Gm/50 Ml) 50 mls @ 100 mls/hr IV Q24H [facility] Last Admin: 07/18/18 20:37 Dose: 100 mls/hr - Exam General: Reports: Alert, Oriented, Cooperative Neck: Reports: Supple Lungs: Reports: Clear to Auscultation, Normal Respiratory Effort Cardiovascular: Reports: Regular Rate, Regular Rhythm GI/Abdominal Exam: Normal Bowel Sounds, Soft, Non-Tender Back Exam: Reports: Normal Inspection, Full Range of Motion, Other (mass with radiation burn to L shoulder) Skin: Reports: Warm, Dry Neurological: Reports: No New Focal Deficit Psy/Mental Status: Reports: Alert, Normal Affect, Normal Mood <YasmeenKelton - Last Filed: 07/20/18 10:22> Discharge Summary - Hospital Course HPI Initial Comments: I have seen and examined the patient independently of No Manzo CNP. I have discussed the case with her. I have reviewed and agreed with the plan of treatment as outlined for this patient by her. Please see orders. - Patient Summary/Data Consults: Consultations 07/16/18 20:11 PT Evaluation and Treatment [CONS] Routine - Patient Data Vitals - Most Recent: Last Vital Signs Temp 36.2 C 07/20/18 07:20 Pulse 68 07/20/18 08:18 Resp 16 07/20/18 07:20 BP 116/74 07/20/18 08:18 Pulse Ox 96 07/20/18 07:20 Orthostatic Blood Pressure [ 149/87 Standing] Orthostatic Blood Pressure [ 178/92 Sitting] Orthostatic Blood Pressure [ 161/109 Supine] I&O - Last 24 hours: Intake & Output 07/19/18 07/20/18 07/20/18 22:59 06:59 14:59 Intake Total 850 200 Output Total 950 1050 Balance -100 -850 Med Orders - Current: Current Medications Fish Oil (Fish Oil) 1 gm PO BID [facility] Last Admin: 07/20/18 08:19 Dose: 1 gm Fluticasone Propionate (Flonase) 0 gm NASBOTH BID [facility] Last Admin: 07/20/18 08:19 Dose: 2 spray Heparin Sodium (Porcine) (Heparin Sodium) 5,000 units SUBCUT Q8H [facility] Last Admin: 07/20/18 04:24 Dose: 5,000 units Sodium Chloride (Normal Saline) 1,000 mls @ 999 mls/hr IV ASDIRECTED [facility] Last Admin: 07/16/18 17:15 Dose: 999 mls/hr Latanoprost (Xalatan 0.005% Ophth Soln) 0 ml EYEBOTH BEDTIME [facility] Last Admin: 07/19/18 20:02 Dose: 1 drop Levothyroxine Sodium (Levothyroxine) 25 mcg PO ACBREAKFAST [facility] Last Admin: 07/20/18 06:30 Dose: Not Given Loratadine (Claritin) 10 mg PO BEDTIME [facility] Last Admin: 07/19/18 20:01 Dose: 10 mg Meclizine HCl (Antivert) 50 mg PO BID [facility] Last Admin: 07/20/18 08:19 Dose: 50 mg Metoprolol Tartrate (Lopressor) 50 mg PO BID [facility] Last Admin: 07/20/18 08:18 Dose: 50 mg Montelukast Sodium (Singulair) 10 mg PO BEDTIME [facility] Last Admin: 07/19/18 20:01 Dose: 10 mg Oxycodone HCl (Oxycodone) 5 mg PO Q8H PRN PRN Reason: Pain Last Admin: 07/20/18 04:27 Dose: 5 mg Tramadol HCl (Ultram) 50 mg PO Q6H PRN PRN Reason: Pain Last Admin: 07/19/18 11:39 Dose: 50 mg Trazodone HCl (Trazodone) 25 mg PO BEDTIME PRN PRN Reason: Insomnia Triamterene/HCTZ (Maxzide 25-37.5 Mg) 0.5 each PO BIDDIURETIC [facility] Last Admin: 07/20/18 08:16 Dose: 0.5 each Discontinued Medications Fluticasone Propionate (Flonase) 0 gm NASBOTH DAILY [facility] Last Admin: 07/18/18 08:14 Dose: 1 spray Sodium Chloride (Normal Saline) 1,000 mls @ 999 mls/hr IV BOLUS ONE Stop: 07/16/18 15:21 Last Admin: 07/16/18 15:02 Dose: 999 mls/hr Ceftriaxone Sodium 1 gm/ (Sodium Chloride) 50 mls @ 100 mls/hr IV Q24H [facility] Last Admin: 07/16/18 23:08 Dose: Not Given Ceftriaxone Sodium/Dextrose (Rocephin In Dextrose,Iso-Osm 1 Gm/50 Ml) 50 mls @ 100 mls/hr IV Q24H [facility] Last Admin: 07/18/18 20:37 Dose: 100 mls/hr
[2018-07-20 12:06] VITALS: BP 111/58
== END 2018-07-20 12:45 | DRG 153 ==
LOC: MW.ED 13:57 → MW.MS 17:33 → OBSVTOIN 07-17 12:45 → INTOOBSV 07-17 12:45
PROVIDERS: ADMIT Internal Medicine; ATTEND Internal Medicine
DX: T70.0XXA Otitic barotrauma, initial encounter (principal); N39.0 Urinary tract infection, site not specified; C79.51 Secondary malignant neoplasm of bone; R42 Dizziness and giddiness; C67.9 Malignant neoplasm of bladder, unspecified; I10 Essential (primary) hypertension; E03.9 Hypothyroidism, unspecified; G47.33 Obstructive sleep apnea (adult) (pediatric); K21.9 Gastro-esophageal reflux disease without esophagitis; H40.9 Unspecified glaucoma; R53.1 Weakness; M19.90 Unspecified osteoarthritis, unspecified site; E66.9 Obesity, unspecified; T22.052A Burn of unspecified degree of left shoulder, initial encounter; T31.0 Burns involving less than 10% of body surface; Y84.2 Radiological procedure and radiotherapy as the cause of abnormal reaction of the patient, or of later complication, without mention of misadventure at the time of the procedure; Z87.891 Personal history of nicotine dependence; Z79.899 Other long term (current) drug therapy; Z79.890 Hormone replacement therapy; W18.30XA Fall on same level, unspecified, initial encounter; Z68.34 Body mass index [BMI] 34.0-34.9, adult
CPT/HCPCS: 36415 ×2; 70450; 71045; 80048; 80053; 81001; 84484; 85025 ×2; 85610; 87086; 93005; 97161; 99285; A9270 ×4; J0696; J1644 ×2; J7040 ×2; 97110-GP; 97530-GP

== ENCOUNTER 2018-08-07 14:17 | Emergency (ER) | payer MEDICARE, BC, OTHER ==
[2018-08-07 14:32] VITALS: BP 109/67
--- NOTE | 2018-08-07 15:27 | EDM.PDOC ---
ED HPI GENERAL MEDICAL PROBLEM - General Chief Complaint: Back Pain or Injury Stated Complaint: BACK PAIN FROM [facility] Time Seen by Provider: 08/07/18 14:23 Source of Information: Reports: Patient, Family History Limitations: Reports: No Limitations - History of Present Illness INITIAL COMMENTS - FREE TEXT/NARRATIVE: HISTORY AND PHYSICAL: History of present illness: Patient is a 78 year old male who presents to the ED today from [place] for concern of progressive leg weakness. Over the past 2 months, patient has noticed a decrease in his ability to walk and take care of himself. Patient states prior to 2 months ago, he was fully ambulatory. Initially, patient states he had a few falls/ concern for losing consciousness which led him to a visit in the ED on 07/16/18, at that time he was admitted to the hospital and had received a workup for syncope/falls/weakness. After discharge of the hospital, he went into [place] for rehab with a goal to improve his muscle strength following hospital stay. Patient states rehab has not helped his symptoms, but rather since starting rehab, he has noticed his walking becoming even more difficult/progressively weak. Patient states he met with Dr. Jasso, his PCP and Dr. Sainz, his oncologist, since the loss of ability to walk and was scheduled for scans. He states he has been placed on Prednisone and was supposed to get several MRI scans/PET scans but these scans are set up for a few weeks from now. Patient sent to the ED by [place] rehab who noted he is no longer able to use his legs progressively over the past week and requires complete [place] transfer for mobility. Patient states he has noticed over the past week an increase in his chronic back pain. Patient states he always has had back pain ever since he was young but over the past week has noticed it has become worse than usual. Patient has a history of bladder cancer, stage 4 with metastasis to the left shoulder. Patient denies fever, chills, chest pain, shortness of breath, or cough. Denies headache, neck stiff ness, change in vision, syncope, or near syncope. Denies nausea, vomiting, abdominal pain, diarrhea, constipation, or dysuria. Has not noted any blood in urine or stool. Patient has been eating and drinking appropriately. Review of systems: As per history of present illness and below otherwise all systems reviewed and negative. Past medical history: As per history of present illness and as reviewed below otherwise noncontributory. Surgical history: As per history of present illness and as reviewed below otherwise noncontributory. Social history: See social history for further information Family history: As per history of present illness and as reviewed below otherwise noncontributory. Physical exam: General: Patient is alert, oriented, and in no acute distress. Patient sitting comfortably in wheelchair. Wily lift sling in place under patient. HEENT: Atraumatic, normocephalic, pupils equal and reactive bilaterally, negative for conjunctival pallor or scleral icterus, mucous membranes moist, TMs normal bilaterally, throat clear, neck supple, nontender, trachea midline. No drooling or trismus noted. No meningeal signs. No hot potato voice noted. Lungs: Clear to auscultation, breath sounds equal bilaterally, chest nontender. Heart: S1S2, regular rate and rhythm without overt murmur Abdomen: Soft, nondistended, nontender. Negative for masses or hepatosplenomegaly. Negative for costovertebral tenderness. Pelvis: Stable nontender. Genitourinary: Deferred. Rectal: Deferred. Skin: Intact, warm, dry. No lesions or rashes noted. Extremities: Atraumatic, negative for cords or calf pain. Neuro: Awake, alert, oriented. Cranial nerves II through XII unremarkable. 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 Notes: Dr. Rose was directly involved in patients care. Call to [facility] to Dr. Pacheco. Accepting of transfer. Ground transfer arranged. Voices understanding and is agreeable to plan of care. Denies any further questions or concerns at this time. Diagnostics: None Therapeutics: Saline lock Impression: Bilateral leg paralysis History of bladder cancer with metastasis Plan: 1. Transfer to [facility] to Dr. Pacheco Definitive disposition and diagnosis as appropriate pending reevaluation and review of above. Upper Back Pain Score (Numeric/FACES): 7 - Related Data Allergies Allergy/AdvReac Type Severity Reaction Status Date / Time No Known Allergies Allergy Verified 08/07/18 14:25 Home Meds: Home Meds Triamterene/Hydrochlorothiazid [Triamterene-HCTZ 37.5-25 MG] 0.5 tab PO BID 07/24 [History] Fish Oil/[place]-3 Fatty Acids [Fish Oil 1,000 MG] 1 tab PO BID 08/26/16 [History] Latanoprost [Xalatan 0.005% Ophth Soln] 1 drop EYEBOTH BEDTIME 08/26/16 [History ] traZODone HCl [Trazodone HCl] 25 mg PO BEDTIME PRN 08/26/16 [History] Levothyroxine 50 mcg PO ACBREAKFAST 03/18/18 [History] Acetaminophen [Pain Relief Extra Strength] 500 mg PO BID PRN 07/18/18 [History] Loratadine [Claritin] 10 mg PO DAILY 07/18/18 [History] Meclizine [Antivert] 50 mg PO BID 07/18/18 [History] Metoprolol Tartrate 50 mg PO BID 07/18/18 [History] Ondansetron [Zofran] 8 mg PO Q8H PRN 07/18/18 [History] Potassium Chloride [Klor-Con 10] 10 meq PO Q2D 07/18/18 [History] Prochlorperazine Maleate [Compazine] 10 mg PO TID PRN 07/18/18 [History] Fluticasone Propionate [Flonase] 2 spray NASBOTH DAILY #1 bottle 07/20/18 [Rx] Montelukast [Singulair] 10 mg PO BEDTIME #30 tablet 07/20/18 [Rx] oxyCODONE 5 mg PO Q8H PRN #15 tab 07/20/18 [Rx] Past Medical History - Past Health History Medical/Surgical History: Denies Medical/Surgical History HEENT History: Reports: Allergic Rhinitis, Cataract, Glaucoma, Other (See Below) Other HEENT History: wears glasses. Nasal congestion. Cardiovascular History: Reports: Hypertension Respiratory History: Reports: Sleep Apnea Other Respiratory History: does not use CPAP Gastrointestinal History: Reports: GERD Genitourinary History: Reports: Other (See Below) Other Genitourinary History: hx of bladder tumor Musculoskeletal History: Reports: Arthritis, Back Pain, Chronic, Fracture, Osteoarthritis Other Musculoskeletal History: hx of fx thumb, left shoulder pain Neurological History: Reports: None Psychiatric History: Reports: None Endocrine/Metabolic History: Reports: Obesity/BMI 30+ Hematologic History: Reports: None Immunologic History: Reports: None Oncologic (Cancer) History: Reports: Bladder Other Oncologic History: Malignant neoplasm of bladder Dermatologic History: Reports: None - Infectious Disease History Infectious Disease History: Reports: Chicken Pox, Measles, Mumps - Past Surgical History Head Surgeries/Procedures: Reports: None HEENT Surgical History: Reports: Cataract Surgery, Other (See Below) Other HEENT Surgeries/Procedures: hx of Blepharoplasty Cardiovascular Surgical History: Reports: None Respiratory Surgical History: Reports: None GI Surgical History: Reports: Appendectomy Male Surgical History: Reports: TURBT-Transurethral Resection of Bladder Tumor Endocrine Surgical History: Reports: None Neurological Surgical History: Reports: None Musculoskeletal Surgical History: Reports: None Oncologic Surgical History: Reports: None Dermatological Surgical History: Reports: None Social & Family History - Family History Family Medical History: Noncontributory HEENT: Reports: None - Tobacco Use Smoking Status *Q: Former Smoker Used Tobacco, but Quit: Yes Month/Year Tobacco Last Used: 1968 - Caffeine Use Caffeine Use: Reports: Coffee Caffeine Use Comment: 1-2 cups of coffee per day, 1 coke per day - Recreational Drug Use Recreational Drug Use: No ED ROS GENERAL - Review of Systems Review Of Systems: ROS reveals no pertinent complaints other than HPI. ED EXAM, NEURO - Physical Exam Exam: See Below (see dictation) Course - Vital Signs Last Recorded V/S: Last Vital Signs Temp 36.4 C 08/07/18 14:27 Pulse 69 08/07/18 14:27 Resp 16 08/07/18 14:27 BP 109/67 08/07/18 14:27 Pulse Ox 97 08/07/18 14:27 Departure - Departure Time of Disposition: 15:46 Disposition: DC/Tfer to Acute Hospital 02 Clinical Impression: Flaccid paralysis of legs, History of bladder cancer, History of metastatic neoplastic disease - Discharge Information Referrals: [facility] [Primary Care Provider] - Forms: ED Department Discharge
== END 2018-08-07 16:50 ==
LOC: MW.ED 14:17
DX: G72.89 Other specified myopathies (principal); I10 Essential (primary) hypertension; K21.9 Gastro-esophageal reflux disease without esophagitis; Z85.51 Personal history of malignant neoplasm of bladder; Z87.891 Personal history of nicotine dependence; Z79.899 Other long term (current) drug therapy
CPT/HCPCS: 99284

== ENCOUNTER 2018-09-12 11:47 | Inpatient (IN) | payer MEDICARE, BC ==
[2018-09-12] MEDS ORDERED: Sodium Chloride 0.9% 1,000 ML IV SCH (12:15)
[2018-09-12] MEDS ORDERED: Piperacillin/Tazobactam 3.375 GM in Sodium Chloride 0.9% 50 ML IV ONE (12:15)
--- NOTE | 2018-09-12 12:22 | EDM.PDOC ---
ED HPI GENERAL MEDICAL PROBLEM - General Chief Complaint: Cardiovascular Problem Stated Complaint: LOW BLOOD PRESSURE Time Seen by Provider: 09/12/18 12:03 Source of Information: Reports: Patient - History of Present Illness INITIAL COMMENTS - FREE TEXT/NARRATIVE: HISTORY AND PHYSICAL: History of present illness: pt presents from [place] history of cancer, fever hypotension and tachycardia, recently on Levaquin for UTI Review of systems: As per history of present illness and below otherwise all systems reviewed and negative. Past medical history: As per history of present illness and as reviewed below otherwise noncontributory. Surgical history: As per history of present illness and as reviewed below otherwise noncontributory. Social history: No reported history of drug or alcohol abuse. Family history: As per history of present illness and as reviewed below otherwise noncontributory. Physical exam: HEENT: Atraumatic, normocephalic, pupils reactive, negative for conjunctival pallor or scleral icterus, mucous membranes moist, throat clear, neck supple, nontender, trachea midline. Lungs: Clear to auscultation, breath sounds equal bilaterally, chest nontender. Heart: S1S2, regular, negative for clicks, rubs, or JVD. Abdomen: Soft, nondistended, nontender. Negative for masses or hepatosplenomegaly. Negative for costovertebral tenderness. Pelvis: Stable nontender. Genitourinary: Deferred. Rectal: Deferred. Extremities: Atraumatic, negative for cords or calf pain. Neurovascular unremarkable. Neuro: Awake, alert, oriented. Cranial nerves II through XII unremarkable. Cerebellum unremarkable. Motor and sensory unremarkable throughout. Exam nonfocal. Diagnostics: [CBC CMP UA troponin cultures 2 lactic: Blood EKG Chest 1 view ] Therapeutics: [ normal saline Vancomycin Zosyn ] Impression: [ systemic inflammatory response syndrome UTI Tonic history of baseline] Definitive disposition and diagnosis as appropriate pending reevaluation and review of above. left shoulder Pain Score (Numeric/FACES): 2 - Related Data Allergies Allergy/AdvReac Type Severity Reaction Status Date / Time No Known Allergies Allergy Verified 09/12/18 11:54 Home Meds: Home Meds Triamterene/Hydrochlorothiazid [Triamterene-HCTZ 37.5-25 MG] 1 tab PO BID [History] Fish Oil/[place]-3 Fatty Acids [Fish Oil 1,000 MG] 1 cap PO BID 08/26/16 [History] Latanoprost [Xalatan 0.005% Ophth Soln] 1 drop EYEBOTH BEDTIME 08/26/16 [History ] Levothyroxine 25 mcg PO ACBREAKFAST 03/18/18 [History] Loratadine [Claritin] 10 mg PO QAM 07/18/18 [History] Meclizine [Antivert] 50 mg PO BID 07/18/18 [History] Metoprolol Tartrate 50 mg PO BID 07/18/18 [History] Ondansetron [Zofran] 8 mg PO Q8H PRN 07/18/18 [History] Potassium Chloride [Klor-Con 10] 20 meq PO QAM 07/18/18 [History] Prochlorperazine Maleate [Compazine] 10 mg PO TID PRN 07/18/18 [History] oxyCODONE 5 mg PO Q8H PRN #15 tab 07/20/18 [Rx] Acetaminophen [Tylenol] 325 mg PO Q4H PRN 09/12/18 [History] Cyclobenzaprine HCl 5 mg PO TID 09/12/18 [History] Fluticasone Propionate [Flonase] 2 spray NASBOTH QAM 09/12/18 [History] Magnesium Hydroxide [Milk of Magnesia] 30 ml PO Q24H PRN 09/12/18 [History] Menthol [Biofreeze] 1 applic TOP BEDTIME 09/12/18 [History] Montelukast [Singulair] 10 mg PO BEDTIME 09/12/18 [History] Ranitidine HCl [Heartburn Relief] 150 mg PO DAILY PRN 09/12/18 [History] Past Medical History - Past Health History Medical/Surgical History: Denies Medical/Surgical History HEENT History: Reports: Allergic Rhinitis, Cataract, Glaucoma, Other (See Below) Other HEENT History: wears glasses. Nasal congestion. Cardiovascular History: Reports: Hypertension Respiratory History: Reports: Sleep Apnea Other Respiratory History: does not use CPAP Gastrointestinal History: Reports: GERD Genitourinary History: Reports: Other (See Below) Other Genitourinary History: hx of bladder tumor Musculoskeletal History: Reports: Arthritis, Back Pain, Chronic, Fracture, Osteoarthritis, Other (See Below) Other Musculoskeletal History: Unable to Ambulate, Uses wheelchair & lift Neurological History: Reports: None Psychiatric History: Reports: None Endocrine/Metabolic History: Reports: Obesity/BMI 30+ Hematologic History: Reports: None Immunologic History: Reports: None Oncologic (Cancer) History: Reports: Bladder Other Oncologic History: Malignant neoplasm of bladder Dermatologic History: Reports: None - Infectious Disease History Infectious Disease History: Reports: Chicken Pox, Measles, Mumps - Past Surgical History Head Surgeries/Procedures: Reports: None Cardiovascular Surgical History: Reports: None Respiratory Surgical History: Reports: None GI Surgical History: Reports: Appendectomy Male Surgical History: Reports: TURBT-Transurethral Resection of Bladder Tumor Endocrine Surgical History: Reports: None Neurological Surgical History: Reports: None Dermatological Surgical History: Reports: None Social & Family History - Family History Family Medical History: Noncontributory HEENT: Reports: None - Tobacco Use Smoking Status *Q: Former Smoker Used Tobacco, but Quit: Yes Month/Year Tobacco Last Used: quit 1968 - Caffeine Use Caffeine Use: Reports: Coffee Caffeine Use Comment: 1-2 cups of coffee per day, 1 coke per day - Recreational Drug Use Recreational Drug Use: No ED ROS GENERAL - Review of Systems Review Of Systems: See Below ED EXAM, GENERAL - Physical Exam Exam: See Below Course - Vital Signs Last Recorded V/S: Last Vital Signs Temp 98.9 F 09/12/18 13:32 Pulse 110 H 09/12/18 16:02 Resp 17 09/12/18 16:02 BP 107/67 09/12/18 16:02 Pulse Ox 94 L 09/12/18 16:02 - Orders/Labs/Meds Orders: Active Orders 24 hr Category Date Time Status EKG Documentation Completion [RC] STAT Care 09/12/18 12:46 Active CULTURE BLOOD [BC] Stat Lab 09/12/18 12:23 Results CULTURE BLOOD [BC] Stat Lab 09/12/18 12:41 Results Sodium Chloride 0.9% [Normal Saline] 1,000 ml Med 09/12/18 12:15 Active IV STAT Blood Culture x2 Reflex Set [OM.PC] Stat Oth 09/12/18 12:15 Ordered Medication Orders Sodium Chloride (Normal Saline) 1,000 mls @ 125 mls/hr IV STAT YAJAIRA Last Admin: 09/12/18 12:30 Dose: 125 mls/hr Labs: Laboratory Tests 09/12/18 09/12/1819 Range/Units 11:57 12:23 12:23 WBC 5.36 (4.0-11.0) K/uL RBC 4.36 L (4.50-5.90) M/uL Hgb 11.9 L (13.0-17.0) g/dL Hct 35.1 L (38.0-50.0) % MCV 80.5 (80.0-98.0) fL MCH 27.3 (27.0-32.0) pg MCHC 33.9 (31.0-37.0) g/dL RDW Std Deviation 51.1 (28.0-62.0) fl RDW Coeff of [place] 18 H (11.0-15.0) % Plt Count 102 L (150-400) K/uL MPV 9.30 (7.40-12.00) fL Add Manual Diff YES Neutrophils % (Manual) 74 (48.0-80.0) % Band Neutrophils % 9 % Lymphocytes % (Manual) 12 L (16.0-40.0) % Monocytes % (Manual) 4 (0.0-15.0) % Myelocytes % 1 % Nucleated RBC % 0.4 /100WBC Absolute Seg Neuts 4.0 (1.4-5.7) Band Neutrophils # 0.5 Lymphocytes # (Manual) 0.6 (0.6-2.4) Monocytes # (Manual) 0.2 (0.0-0.8) Absolute Myelocytes 0.1 Nucleated RBCs # 0 K/uL Platelet Estimate DECREASED Lactate 2.2 H (0.20-2.00) mmol/L Sodium 127 L (136-148) mmol/L Potassium 3.4 L (3.5-5.1) mmol/L Chloride 89 L (98-107) mmol/L Carbon Dioxide 31.2 (21.0-32.0) mmol/L BUN 25 H (7.0-18.0) mg/dL Creatinine 0.7 L (0.8-1.3) mg/dL Est Cr Clr Drug Dosing 85.57 mL/min Estimated GFR (MDRD) > 60.0 ml/min Glucose 91 (74-106) mg/dL Calcium 8.1 L (8.5-10.1) mg/dL Total Bilirubin 1.4 H (0.2-1.0) mg/dL AST 35 (15-37) IU/L ALT 35 (14-63) IU/L Alkaline Phosphatase 131 H (46-116) U/L Troponin I 0.066 H* (0.000-0.056) ng/mL Total Protein 6.7 (6.4-8.2) g/dL Albumin 2.5 L (3.4-5.0) g/dL Globulin 4.2 H (2.6-4.0) g/dL Albumin/Globulin Ratio 0.6 L (0.9-1.6) Urine Color Urine Appearance Urine pH (5.0-8.0) Ur Specific [place] (1.001-1.035) Urine Protein (NEGATIVE) mg/dL Urine Glucose (UA) (NEGATIVE) mg/dL Urine Ketones (NEGATIVE) mg/dL Urine Occult Blood (NEGATIVE) Urine Nitrite (NEGATIVE) Urine Bilirubin (NEGATIVE) Urine Urobilinogen (<2.0) EU/dL Ur Leukocyte Esterase (NEGATIVE) Urine RBC (0-2/HPF) Urine WBC (0-5/HPF) Ur Epithelial Cells (NONE-FEW) Urine Bacteria (NEGATIVE) Urine Mucus (NONE-MOD) 09/12/18 Range/Units 13:15 WBC (4.0-11.0) K/uL RBC (4.50-5.90) M/uL Hgb (13.0-17.0) g/dL Hct (38.0-50.0) % MCV (80.0-98.0) fL MCH (27.0-32.0) pg MCHC (31.0-37.0) g/dL RDW Std Deviation (28.0-62.0) fl RDW Coeff of [place] (11.0-15.0) % Plt Count (150-400) K/uL MPV (7.40-12.00) fL Add Manual Diff Neutrophils % (Manual) (48.0-80.0) % Band Neutrophils % % Lymphocytes % (Manual) (16.0-40.0) % Monocytes % (Manual) (0.0-15.0) % Myelocytes % % Nucleated RBC % /100WBC Absolute Seg Neuts (1.4-5.7) Band Neutrophils # Lymphocytes # (Manual) (0.6-2.4) Monocytes # (Manual) (0.0-0.8) Absolute Myelocytes Nucleated RBCs # K/uL Platelet Estimate Lactate (0.20-2.00) mmol/L Sodium (136-148) mmol/L Potassium (3.5-5.1) mmol/L Chloride (98-107) mmol/L Carbon Dioxide (21.0-32.0) mmol/L BUN (7.0-18.0) mg/dL Creatinine (0.8-1.3) mg/dL Est Cr Clr Drug Dosing mL/min Estimated GFR (MDRD) ml/min Glucose (74-106) mg/dL Calcium (8.5-10.1) mg/dL Total Bilirubin (0.2-1.0) mg/dL AST (15-37) IU/L ALT (14-63) IU/L Alkaline Phosphatase (46-116) U/L Troponin I (0.000-0.056) ng/mL Total Protein (6.4-8.2) g/dL Albumin (3.4-5.0) g/dL Globulin (2.6-4.0) g/dL Albumin/Globulin Ratio (0.9-1.6) Urine Color YELLOW Urine Appearance SLT CLOUDY Urine pH 6.0 (5.0-8.0) Ur Specific [place] 1.015 (1.001-1.035) Urine Protein NEGATIVE (NEGATIVE) mg/dL Urine Glucose (UA) NEGATIVE (NEGATIVE) mg/dL Urine Ketones NEGATIVE (NEGATIVE) mg/dL Urine Occult Blood LARGE H (NEGATIVE) Urine Nitrite NEGATIVE (NEGATIVE) Urine Bilirubin NEGATIVE (NEGATIVE) Urine Urobilinogen 2.0 H (<2.0) EU/dL Ur Leukocyte Esterase NEGATIVE (NEGATIVE) Urine RBC 80-100 (0-2/HPF) Urine WBC 2-4 (0-5/HPF) Ur Epithelial Cells OCCASIONAL (NONE-FEW) Urine Bacteria FEW (NEGATIVE) Urine Mucus LIGHT (NONE-MOD) Meds: Medications Generic Name Dose Route Start Last Admin Trade Name Freq PRN Reason Stop Dose Admin Sodium Chloride 1,000 mls @ 125 mls/hr 09/12/18 12:15 09/12/18 12:30 Normal Saline IV 125 mls/hr STAT YAJAIRA Administration Discontinued Medications Generic Name Dose Route Start Last Admin Trade Name Freq PRN Reason Stop Dose Admin Piperacillin Sod/Tazobactam 50 mls @ 100 mls/hr 09/12/18 12:15 09/12/18 12:30 Sod 3.375 gm/ Sodium Chloride IV 09/12/18 12:44 100 mls/hr ONETIME ONE Administration Vancomycin HCl 1 gm/ Sodium 250 mls @ 250 mls/hr 09/12/18 12:15 09/12/18 13: 19 Chloride IV 09/12/18 13:14 Not Given ONETIME ONE Vancomycin HCl 1 gm/ Sodium 250 mls @ 250 mls/hr 09/12/18 13:00 09/12/18 13: 44 Chloride IV 09/12/18 13:59 250 mls/hr ONETIME ONE Administration Departure - Departure Time of Disposition: 16:20 Disposition: Refer to Observation Condition: Poor Clinical Impression: Hypotension, Systemic inflammatory response syndrome, History of metastatic neoplastic disease, History of bladder cancer Urinary tract infection Qualifiers: Urinary tract infection type: site unspecified Hematuria presence: with hematuria Qualified Code(s): N39.0 - Urinary tract infection, site not specified Referrals: PCP,None [Primary Care Provider] - Forms: ED Department Discharge - My Orders Last 24 Hours: My Active Orders 09/12/18 12:15 Sodium Chloride 0.9% [Normal Saline] 1,000 ml IV STAT Blood Culture x2 Reflex Set [OM.PC] Stat 09/12/18 12:23 CULTURE BLOOD [BC] Stat 09/12/18 12:41 CULTURE BLOOD [BC] Stat 09/12/18 12:46 EKG Documentation Completion [RC] STAT - Assessment/Plan Last 24 Hours: My Active Orders 09/12/18 12:15 Sodium Chloride 0.9% [Normal Saline] 1,000 ml IV STAT Blood Culture x2 Reflex Set [OM.PC] Stat 09/12/18 12:23 CULTURE BLOOD [BC] Stat 09/12/18 12:41 CULTURE BLOOD [BC] Stat 09/12/18 12:46 EKG Documentation Completion [RC] STAT
[2018-09-12 12:57] LABS: CHLORIDE,CL 89 mmol/L (98-107); SODIUM,NA 127 mmol/L (136-148)
--- NOTE | 2018-09-12 14:03 | CR ---
INDICATION: Dyspnea. HISTORY: Dyspnea. COMPARISON: 08/07/2018. TECHNIQUE: Chest one-view portable. FINDINGS: There is a calcified mass present overlapping the left clavicular diaphysis, which is unchanged, measuring greater than 10 cm in long axis dimension. There is no acute airspace disease or pneumothorax. The central airway is normal. Right IJ Port-A-Cath, with its tip in the SVC. No pneumothorax. IMPRESSION: Stable exam when compared with 08/07/2018. Dictated by Chente Santiago MD @ 09/12/2018 2:01:27 PM Dictated by: Chente Santiago MD @ 09/12/2018 14:01:40 (Electronically Signed)
--- NOTE | 2018-09-12 15:41 | CT ---
INDICATION: Low blood pressure TECHNIQUE: CT abdomen and pelvis acquired without IV contrast. COMPARISON: 11/03/2017 FINDINGS: Lower chest: Right lower lobe patchy opacity consistent with atelectasis and/or infiltrate. Liver: Unremarkable. Spleen: Unremarkable. Pancreas: Unremarkable. Gallbladder and bile ducts: Distended gallbladder with cholelithiasis. No gallbladder wall thickening or pericholecystic fluid. Normal common bile duct. Kidneys: Unremarkable. Adrenal glands: Unremarkable. GI tract: Diffuse colonic fecal retention. Appendix is normal. Vascular structures: Unremarkable. Lymph nodes: Unremarkable. Miscellaneous: Unremarkable. No free air or significant free fluid. Pelvic Organs: Unremarkable. Bones: Unremarkable for age. IMPRESSION: Diffuse colonic fecal retention. Distended gallbladder with cholelithiasis. No gallbladder wall thickening or pericholecystic fluid. Normal common bile duct. Correlate with right upper quadrant pain. Patchy opacity right lower lobe. Correlate with pneumonia clinically. Dictated by Gio Reese MD @ 09/12/2018 3:40:13 PM Please note that all CT scans at this facility use dose modulation, iterative reconstruction, and/or weight-based dosing when appropriate to reduce radiation dose to as low as reasonably achievable. Dictated by: Gio Reese MD @ 09/12/2018 15:40:21 (Electronically Signed)
[2018-09-12] MEDS ORDERED: Potassium Chloride 20 MEQ Tab.ER PO ONE (18:11)
[2018-09-12] MEDS: Sodium Chloride 0.9% 1,000 ML IV SCH (18:17)
[2018-09-12] MEDS: Albuterol/Ipratropium 3.0-0.5 MG/3 ML Neb Soln NEB PRN (18:27)
[2018-09-12] MEDS: Piperacillin/Tazobactam 3.375 GM in Sodium Chloride 0.9% 50 ML IV SCH (18:44)
--- NOTE | 2018-09-12 22:33 | PCM.HP ---
H&P History of Present Illness - General Date of Service: 09/13/18 Admit Problem/Dx: Admission Diagnosis/Problem Admission Diagnosis/Problem Hypotension - History of Present Illness Initial Comments - Free Text/Narative: 78 yo male with metastatic bladder cancer who presents to the ED from [place] with concerns of hypotension and fevers. Patient was noted to have blood pressures in the 70s-80s systolic. Patient complains of cough that is dry. He denies any chest pain or shortness of breath. left shoulder Pain Score (Numeric/FACES): 2 - Related Data Allergies/Adverse Reactions: Allergies Allergy/AdvReac Type Severity Reaction Status Date / Time No Known Allergies Allergy Verified 09/12/18 11:54 Home Medications: Home Meds Triamterene/Hydrochlorothiazid [Triamterene-HCTZ 37.5-25 MG] 1 tab PO BID [History] Fish Oil/[place]-3 Fatty Acids [Fish Oil 1,000 MG] 1 cap PO BID 08/26/16 [History] Latanoprost [Xalatan 0.005% [facility] Soln] 1 drop EYEBOTH BEDTIME 08/26/16 [History ] Levothyroxine 25 mcg PO ACBREAKFAST 03/18/18 [History] Loratadine [Claritin] 10 mg PO QAM 07/18/18 [History] Meclizine [Antivert] 50 mg PO BID 07/18/18 [History] Metoprolol Tartrate 50 mg PO BID 07/18/18 [History] Ondansetron [Zofran] 8 mg PO Q8H PRN 07/18/18 [History] Potassium Chloride [Klor-Con 10] 20 meq PO QAM 07/18/18 [History] Prochlorperazine Maleate [Compazine] 10 mg PO TID PRN 07/18/18 [History] oxyCODONE 5 mg PO Q8H PRN #15 tab 07/20/18 [Rx] Acetaminophen [Tylenol] 325 mg PO Q4H PRN 09/12/18 [History] Cyclobenzaprine HCl 5 mg PO TID 09/12/18 [History] Fluticasone Propionate [Flonase] 2 spray NASBOTH QAM 09/12/18 [History] Magnesium Hydroxide [Milk of Magnesia] 30 ml PO Q24H PRN 09/12/18 [History] Menthol [Biofreeze] 1 applic TOP BEDTIME 09/12/18 [History] Montelukast [Singulair] 10 mg PO BEDTIME 09/12/18 [History] Ranitidine HCl [Heartburn Relief] 150 mg PO DAILY PRN 09/12/18 [History] Past Medical History - Past Health History Medical/Surgical History: Denies Medical/Surgical History HEENT History: Reports: Allergic Rhinitis, Cataract, Glaucoma, Other (See Below) Other HEENT History: wears glasses. Nasal congestion. Cardiovascular History: Reports: Hypertension Respiratory History: Reports: Sleep Apnea Other Respiratory History: does not use CPAP Gastrointestinal History: Reports: GERD Genitourinary History: Reports: Other (See Below) Other Genitourinary History: hx of bladder tumor Musculoskeletal History: Reports: Arthritis, Back Pain, Chronic, Fracture, Osteoarthritis, Other (See Below) Other Musculoskeletal History: Unable to Ambulate, Uses wheelchair & lift Neurological History: Reports: None Psychiatric History: Reports: None Endocrine/Metabolic History: Reports: Obesity/BMI 30+ Hematologic History: Reports: None Immunologic History: Reports: None Oncologic (Cancer) History: Reports: Bladder Other Oncologic History: Malignant neoplasm of bladder Dermatologic History: Reports: None - Infectious Disease History Infectious Disease History: Reports: Chicken Pox, Measles, Mumps - Past Surgical History Head Surgeries/Procedures: Reports: None Cardiovascular Surgical History: Reports: None Respiratory Surgical History: Reports: None GI Surgical History: Reports: Appendectomy Male Surgical History: Reports: TURBT-Transurethral Resection of Bladder Tumor Endocrine Surgical History: Reports: None Neurological Surgical History: Reports: None Dermatological Surgical History: Reports: None Social & Family History - Family History Family Medical History: Noncontributory HEENT: Reports: None - Tobacco Use Smoking Status *Q: Former Smoker Used Tobacco, but Quit: Yes Month/Year Tobacco Last Used: quit 1968 - Caffeine Use Caffeine Use: Reports: Coffee Caffeine Use Comment: 1-2 cups of coffee per day, 1 coke per day - Recreational Drug Use Recreational Drug Use: No H&P Review of Systems - Review of Systems: Review Of Systems: ROS reveals no pertinent complaints other than HPI. Gastrointestinal: Reports: Bloody Stool Exam - Exam Exam: See Below - Vital Signs Vital Signs: Last Vital Signs Temp 36.7 C 09/12/18 20:00 Pulse 110 H 09/12/18 20:00 Resp 19 09/12/18 20:00 BP 95/66 09/12/18 20:00 Pulse Ox 96 09/12/18 20:00 Weight: 82 kg - Exam General: Alert, Oriented HEENT: Mucosa Moist & [place] Lungs: Clear to Auscultation, Normal Respiratory Effort Cardiovascular: Regular Rate, Regular Rhythm GI/Abdominal Exam: Soft, Non-Tender, No Distention Extremities: Non-Tender, No Pedal Edema Skin: Warm, Dry, Intact Neurological: No: Focal Deficit - Patient Data Lab Results Last 24 hrs: Laboratory Results - last 24 hr 09/12/18 09/12/18 09/12/18 Range/Units 11:57 12:23 12:23 WBC 5.36 (4.0-11.0) K/uL RBC 4.36 L (4.50-5.90) M/uL Hgb 11.9 L (13.0-17.0) g/dL Hct 35.1 L (38.0-50.0) % MCV 80.5 (80.0-98.0) fL MCH 27.3 (27.0-32.0) pg MCHC 33.9 (31.0-37.0) g/dL RDW Std Deviation 51.1 (28.0-62.0) fl RDW Coeff of [place] 18 H (11.0-15.0) % Plt Count 102 L (150-400) K/uL MPV 9.30 (7.40-12.00) fL Add Manual Diff YES Neutrophils % (Manual) 74 (48.0-80.0) % Band Neutrophils % 9 % Lymphocytes % (Manual) 12 L (16.0-40.0) % Monocytes % (Manual) 4 (0.0-15.0) % Myelocytes % 1 % Nucleated RBC % 0.4 /100WBC Absolute Seg Neuts 4.0 (1.4-5.7) Band Neutrophils # 0.5 Lymphocytes # (Manual) 0.6 (0.6-2.4) Monocytes # (Manual) 0.2 (0.0-0.8) Absolute Myelocytes 0.1 Nucleated RBCs # 0 K/uL Platelet Estimate DECREASED Lactate 2.2 H (0.20-2.00) mmol/L Sodium 127 L (136-148) mmol/L Potassium 3.4 L (3.5-5.1) mmol/L Chloride 89 L (98-107) mmol/L Carbon Dioxide 31.2 (21.0-32.0) mmol/L BUN 25 H (7.0-18.0) mg/dL Creatinine 0.7 L (0.8-1.3) mg/dL Est Cr Clr Drug Dosing 85.57 mL/min Estimated GFR (MDRD) > 60.0 ml/min Glucose 91 (74-106) mg/dL Calcium 8.1 L (8.5-10.1) mg/dL Total Bilirubin 1.4 H (0.2-1.0) mg/dL AST 35 (15-37) IU/L ALT 35 (14-63) IU/L Alkaline Phosphatase 131 H (46-116) U/L Troponin I 0.066 H* (0.000-0.056) ng/mL Total Protein 6.7 (6.4-8.2) g/dL Albumin 2.5 L (3.4-5.0) g/dL Globulin 4.2 H (2.6-4.0) g/dL Albumin/Globulin Ratio 0.6 L (0.9-1.6) Urine Color Urine Appearance Urine pH (5.0-8.0) Ur Specific [place] (1.001-1.035) Urine Protein (NEGATIVE) mg/dL Urine Glucose (UA) (NEGATIVE) mg/dL Urine Ketones (NEGATIVE) mg/dL Urine Occult Blood (NEGATIVE) Urine Nitrite (NEGATIVE) Urine Bilirubin (NEGATIVE) Urine Urobilinogen (<2.0) EU/dL Ur Leukocyte Esterase (NEGATIVE) Urine RBC (0-2/HPF) Urine WBC (0-5/HPF) Ur Epithelial Cells (NONE-FEW) Urine Bacteria (NEGATIVE) Urine Mucus (NONE-MOD) 09/12/18 09/12/18 09/12/18 Range/Units 13:15 18:30 18:30 WBC (4.0-11.0) K/uL RBC (4.50-5.90) M/uL Hgb (13.0-17.0) g/dL Hct (38.0-50.0) % MCV (80.0-98.0) fL MCH (27.0-32.0) pg MCHC (31.0-37.0) g/dL RDW Std Deviation (28.0-62.0) fl RDW Coeff of [place] (11.0-15.0) % Plt Count (150-400) K/uL MPV (7.40-12.00) fL Add Manual Diff Neutrophils % (Manual) (48.0-80.0) % Band Neutrophils % % Lymphocytes % (Manual) (16.0-40.0) % Monocytes % (Manual) (0.0-15.0) % Myelocytes % % Nucleated RBC % /100WBC Absolute Seg Neuts (1.4-5.7) Band Neutrophils # Lymphocytes # (Manual) (0.6-2.4) Monocytes # (Manual) (0.0-0.8) Absolute Myelocytes Nucleated RBCs # K/uL Platelet Estimate Lactate 1.5 (0.20-2.00) mmol/L Sodium (136-148) mmol/L Potassium (3.5-5.1) mmol/L Chloride (98-107) mmol/L Carbon Dioxide (21.0-32.0) mmol/L BUN (7.0-18.0) mg/dL Creatinine (0.8-1.3) mg/dL Est Cr Clr Drug Dosing mL/min Estimated GFR (MDRD) ml/min Glucose (74-106) mg/dL Calcium (8.5-10.1) mg/dL Total Bilirubin (0.2-1.0) mg/dL AST (15-37) IU/L ALT (14-63) IU/L Alkaline Phosphatase (46-116) U/L Troponin I 0.060 H* (0.000-0.056) ng/mL Total Protein (6.4-8.2) g/dL Albumin (3.4-5.0) g/dL Globulin (2.6-4.0) g/dL Albumin/Globulin Ratio (0.9-1.6) Urine Color YELLOW Urine Appearance SLT CLOUDY Urine pH 6.0 (5.0-8.0) Ur Specific [place] 1.015 (1.001-1.035) Urine Protein NEGATIVE (NEGATIVE) mg/dL Urine Glucose (UA) NEGATIVE (NEGATIVE) mg/dL Urine Ketones NEGATIVE (NEGATIVE) mg/dL Urine Occult Blood LARGE H (NEGATIVE) Urine Nitrite NEGATIVE (NEGATIVE) Urine Bilirubin NEGATIVE (NEGATIVE) Urine Urobilinogen 2.0 H (<2.0) EU/dL Ur Leukocyte Esterase NEGATIVE (NEGATIVE) Urine RBC 80-100 (0-2/HPF) Urine WBC 2-4 (0-5/HPF) Ur Epithelial Cells OCCASIONAL (NONE-FEW) Urine Bacteria FEW (NEGATIVE) Urine Mucus LIGHT (NONE-MOD) Result Diagrams: 09/13/18 05:25 09/13/18 05:25 [place] Results Last 24 hrs: Microbiology 09/12/18 12:41 Anaerobic Blood Culture - Final Blood - Venous - Lab Draw 09/12/18 12:23 Anaerobic Blood Culture - Final Blood - Venous Problem List Initiated/Reviewed/Updated: Yes Orders Last 24hrs: Active Orders 24 hr Category Date Time Status Admission Status [Patient Status] [ADT] Stat ADT 09/12/18 16:35 Active Antiembolic Devices [RC] PER UNIT ROUTINE Care 09/12/18 22:20 Active EKG Documentation Completion [RC] STAT Care 09/12/18 12:46 Active Oxygen Therapy [RC] ASDIRECTED Care 09/12/18 18:06 Active Oxygen Therapy [RC] PRN Care 09/12/18 22:19 Active RT Aerosol Therapy [RC] ASDIRECTED Care 09/12/18 18:05 Active VTE/DVT Education [RC] PER UNIT ROUTINE Care 09/12/18 22:19 Active Vital Signs [RC] Q4H Care 09/12/18 22:19 Active Regular Diet [DIET] Diet 09/12/18 Dinner Active BASIC METABOLIC PANEL,BMP [CHEM] Routine Lab 09/13/18 05:00 Ordered CBC WITH AUTO DIFF [HEME] Routine Lab 09/13/18 05:00 Ordered CULTURE BLOOD [BC] Stat Lab 09/12/18 12:23 Results CULTURE BLOOD [BC] Stat Lab 09/12/18 12:41 Results CULTURE URINE [RM] Routine Lab 09/12/18 13:15 Received TROPONIN I [CHEM] Q6H Lab 09/13/18 00:00 Ordered VANCOMYCIN TROUGH [CHEM] Routine Lab 09/14/18 10:00 Ordered Albuterol/Ipratropium [DuoNeb 3.0-0.5 MG/3 ML] Med 09/12/18 18:04 Active 3 ml NEB Q4HRRT PRN Azithromycin [Zithromax] 500 mg Med 09/12/18 22:00 Active Sodium Chloride 0.9% [Normal Saline] 250 ml IV Q24H Ondansetron [Zofran] Med 09/12/18 18:15 Active 8 mg PO Q8H PRN Pharmacy to Dose - Vancomycin Med 09/12/18 23:00 Pending 1 dose .XX ASDIRECTED Piperacillin/Tazobactam [Piperacil-Tazobact] 3.375 gm Med 09/12/18 19:00 Active Sodium Chloride 0.9% [Normal Saline] 50 ml IV Q6H Sodium Chloride 0.9% [Normal Saline] 1,000 ml Med 09/12/18 18:15 Active IV ASDIRECTED Vancomycin [Vancocin] 1 gm Med 09/12/18 23:00 Active Sodium Chloride 0.9% [Normal Saline] 250 ml IV Q12H oxyCODONE Med 09/12/18 18:15 Active 5 mg PO Q8H PRN Blood Culture x2 Reflex Set [OM.PC] Stat Oth 09/12/18 12:15 Ordered Sequential Compression Device [OM.PC] Per Unit Routine Oth 09/12/18 22:19 Ordered Medication Orders Albuterol/Ipratropium (Duoneb 3.0-0.5 Mg/3 Ml) 3 ml NEB Q4HRRT PRN PRN Reason: SOB/wheezing Last Admin: 09/12/18 18:27 Dose: 3 ml Sodium Chloride (Normal Saline) 1,000 mls @ 125 mls/hr IV ASDIRECTED YAJAIRA Last Admin: 09/12/18 18:17 Dose: 125 mls/hr Piperacillin Sod/Tazobactam (Sod 3.375 gm/ Sodium Chloride) 50 mls @ 100 mls/ hr IV Q6H YAJAIRA Last Admin: 09/12/18 18:44 Dose: 100 mls/hr Vancomycin HCl 1 gm/ Sodium (Chloride) 250 mls @ 166 mls/hr IV Q12H YAJAIRA Azithromycin 500 mg/ Sodium (Chloride) 250 mls @ 250 mls/hr IV Q24H YAJAIRA Ondansetron HCl (Zofran) 8 mg PO Q8H PRN PRN Reason: Nausea/Vomiting Oxycodone HCl (Oxycodone) 5 mg PO Q8H PRN PRN Reason: Pain Vancomycin HCl (Pharmacy To Dose - Vancomycin) 1 dose .XX ASDIRECTED [facility] Assessment/Plan Comment:: 78 yo male admitted for pneumonia. Pneumonia: treating with broad spectrum antibiotics. Cultures ordered. Continue fluids, lactic acid has normalized mildly elevated troponin: will continue to trend. hyponatremia: likely dehydration and acute illness. will hold HCTZ hypokalemia: replacing
[2018-09-12] MEDS: Azithromycin 500 MG in Sodium Chloride 0.9% 250 ML IV SCH (22:58)
[2018-09-13] MEDS ORDERED: Aspirin 325 MG Tab PO ONE (01:05)
[2018-09-13] MEDS: Piperacillin/Tazobactam 3.375 GM in Sodium Chloride 0.9% 50 ML IV SCH ×4 (02:37→18:14)
[2018-09-13 05:59] LABS: CHLORIDE,CL 95 mmol/L (98-107); SODIUM,NA 131 mmol/L (136-148)
[2018-09-13] MEDS: Sodium Chloride 0.9% 1,000 ML IV SCH ×2 (06:35→15:59)
[2018-09-13] MEDS ORDERED: Sodium Chloride 0.9% 500 ML IV SCH (08:15)
[2018-09-13] MEDS: Potassium Chloride 20 MEQ Tab.ER PO SCH ×2 (08:46→12:49)
--- NOTE | 2018-09-13 08:51 | PCM.PN ---
- General Info Date of Service: 09/13/18 Admission Dx/Problem (Free Text): Admission Diagnosis/Problem Admission Diagnosis/Problem Hypotension Subjective Update: Feeling improved today, cough is better. No abdominal pain. No chest pain. Has L shoulder pain but this is chronic from mass and radiation treatments. Functional Status: Reports: Pain Controlled, Tolerating Diet, Ambulating, Urinating - Review of Systems HEENT: Reports: No Symptoms. Denies: Contact Lenses, Visual Changes Pulmonary: Reports: No Symptoms. Denies: Shortness of Breath Cardiovascular: Reports: No Symptoms. Denies: Chest Pain Gastrointestinal: Reports: No Symptoms. Denies: Abdominal Pain, Nausea, Vomiting Genitourinary: Reports: No Symptoms. Denies: Dysuria, Frequency, Burning Musculoskeletal: Reports: Shoulder Pain (L shoulder) Skin: Reports: No Symptoms Neurological: Reports: No Symptoms Psychiatric: Reports: No Symptoms - Patient Data Vitals - Most Recent: Last Vital Signs Temp 97.9 F 09/13/18 08:00 Pulse 100 09/13/18 08:00 Resp 18 09/13/18 08:00 BP 96/52 L 09/13/18 08:00 Pulse Ox 93 L 09/13/18 08:00 Weight - Most Recent: 82 kg I&O - Last 24 Hours: Intake & Output 09/12/18 09/13/18 09/13/18 22:59 06:59 14:59 Intake Total 950 Balance 950 Lab Results Last 24 Hours: Laboratory Results - last 24 hr 09/12/18 09/12/18 09/12/18 Range/Units 11:57 12:23 12:23 WBC 5.36 (4.0-11.0) K/uL RBC 4.36 L (4.50-5.90) M/uL Hgb 11.9 L (13.0-17.0) g/dL Hct 35.1 L (38.0-50.0) % MCV 80.5 (80.0-98.0) fL MCH 27.3 (27.0-32.0) pg MCHC 33.9 (31.0-37.0) g/dL RDW Std Deviation 51.1 (28.0-62.0) fl RDW Coeff of [place] 18 H (11.0-15.0) % Plt Count 102 L (150-400) K/uL MPV 9.30 (7.40-12.00) fL Add Manual Diff YES Neutrophils % (Manual) 74 (48.0-80.0) % Band Neutrophils % 9 % Lymphocytes % (Manual) 12 L (16.0-40.0) % Monocytes % (Manual) 4 (0.0-15.0) % Eosinophils % (Manual) (0.0-7.0) % Myelocytes % 1 % Nucleated RBC % 0.4 /100WBC Absolute Seg Neuts 4.0 (1.4-5.7) Band Neutrophils # 0.5 Lymphocytes # (Manual) 0.6 (0.6-2.4) Monocytes # (Manual) 0.2 (0.0-0.8) Eosinophils # (Manual) (0.0-0.7) Absolute Myelocytes 0.1 Nucleated RBCs # 0 K/uL Platelet Estimate DECREASED Lactate 2.2 H (0.20-2.00) mmol/L Sodium 127 L (136-148) mmol/L Potassium 3.4 L (3.5-5.1) mmol/L Chloride 89 L (98-107) mmol/L Carbon Dioxide 31.2 (21.0-32.0) mmol/L BUN 25 H (7.0-18.0) mg/dL Creatinine 0.7 L (0.8-1.3) mg/dL Est Cr Clr Drug Dosing 85.57 mL/min Estimated GFR (MDRD) > 60.0 ml/min Glucose 91 (74-106) mg/dL Calcium 8.1 L (8.5-10.1) mg/dL Magnesium (1.8-2.4) mg/dL Total Bilirubin 1.4 H (0.2-1.0) mg/dL AST 35 (15-37) IU/L ALT 35 (14-63) IU/L Alkaline Phosphatase 131 H (46-116) U/L Troponin I 0.066 H* (0.000-0.056) ng/mL Total Protein 6.7 (6.4-8.2) g/dL Albumin 2.5 L (3.4-5.0) g/dL Globulin 4.2 H (2.6-4.0) g/dL Albumin/Globulin Ratio 0.6 L (0.9-1.6) Urine Color Urine Appearance Urine pH (5.0-8.0) Ur Specific [place] (1.001-1.035) Urine Protein (NEGATIVE) mg/dL Urine Glucose (UA) (NEGATIVE) mg/dL Urine Ketones (NEGATIVE) mg/dL Urine Occult Blood (NEGATIVE) Urine Nitrite (NEGATIVE) Urine Bilirubin (NEGATIVE) Urine Urobilinogen (<2.0) EU/dL Ur Leukocyte Esterase (NEGATIVE) Urine RBC (0-2/HPF) Urine WBC (0-5/HPF) Ur Epithelial Cells (NONE-FEW) Urine Bacteria (NEGATIVE) Urine Mucus (NONE-MOD) 09/12/18 09/12/18 09/12/18 Range/Units 13:15 18:30 18:30 WBC (4.0-11.0) K/uL RBC (4.50-5.90) M/uL Hgb (13.0-17.0) g/dL Hct (38.0-50.0) % MCV (80.0-98.0) fL MCH (27.0-32.0) pg MCHC (31.0-37.0) g/dL RDW Std Deviation (28.0-62.0) fl RDW Coeff of [place] (11.0-15.0) % Plt Count (150-400) K/uL MPV (7.40-12.00) fL Add Manual Diff Neutrophils % (Manual) (48.0-80.0) % Band Neutrophils % % Lymphocytes % (Manual) (16.0-40.0) % Monocytes % (Manual) (0.0-15.0) % Eosinophils % (Manual) (0.0-7.0) % Myelocytes % % Nucleated RBC % /100WBC Absolute Seg Neuts (1.4-5.7) Band Neutrophils # Lymphocytes # (Manual) (0.6-2.4) Monocytes # (Manual) (0.0-0.8) Eosinophils # (Manual) (0.0-0.7) Absolute Myelocytes Nucleated RBCs # K/uL Platelet Estimate Lactate 1.5 (0.20-2.00) mmol/L Sodium (136-148) mmol/L Potassium (3.5-5.1) mmol/L Chloride (98-107) mmol/L Carbon Dioxide (21.0-32.0) mmol/L BUN (7.0-18.0) mg/dL Creatinine (0.8-1.3) mg/dL Est Cr Clr Drug Dosing mL/min Estimated GFR (MDRD) ml/min Glucose (74-106) mg/dL Calcium (8.5-10.1) mg/dL Magnesium (1.8-2.4) mg/dL Total Bilirubin (0.2-1.0) mg/dL AST (15-37) IU/L ALT (14-63) IU/L Alkaline Phosphatase (46-116) U/L Troponin I 0.060 H* (0.000-0.056) ng/mL Total Protein (6.4-8.2) g/dL Albumin (3.4-5.0) g/dL Globulin (2.6-4.0) g/dL Albumin/Globulin Ratio (0.9-1.6) Urine Color YELLOW Urine Appearance SLT CLOUDY Urine pH 6.0 (5.0-8.0) Ur Specific [place] 1.015 (1.001-1.035) Urine Protein NEGATIVE (NEGATIVE) mg/dL Urine Glucose (UA) NEGATIVE (NEGATIVE) mg/dL Urine Ketones NEGATIVE (NEGATIVE) mg/dL Urine Occult Blood LARGE H (NEGATIVE) Urine Nitrite NEGATIVE (NEGATIVE) Urine Bilirubin NEGATIVE (NEGATIVE) Urine Urobilinogen 2.0 H (<2.0) EU/dL Ur Leukocyte Esterase NEGATIVE (NEGATIVE) Urine RBC 80-100 (0-2/HPF) Urine WBC 2-4 (0-5/HPF) Ur Epithelial Cells OCCASIONAL (NONE-FEW) Urine Bacteria FEW (NEGATIVE) Urine Mucus LIGHT (NONE-MOD) 09/13/18 09/13/18 09/13/18 Range/Units 00:15 05:25 05:25 WBC 4.17 (4.0-11.0) K/uL RBC 3.34 L (4.50-5.90) M/uL Hgb 9.0 L (13.0-17.0) g/dL Hct 27.0 L (38.0-50.0) % MCV 80.8 (80.0-98.0) fL MCH 26.9 L (27.0-32.0) pg MCHC 33.3 (31.0-37.0) g/dL RDW Std Deviation 51.1 (28.0-62.0) fl RDW Coeff of [place] 18 H (11.0-15.0) % Plt Count 87 L (150-400) K/uL MPV 8.60 (7.40-12.00) fL Add Manual Diff YES Neutrophils % (Manual) 80 (48.0-80.0) % Band Neutrophils % 7 % Lymphocytes % (Manual) 10 L (16.0-40.0) % Monocytes % (Manual) 2 (0.0-15.0) % Eosinophils % (Manual) 1 (0.0-7.0) % Myelocytes % % Nucleated RBC % 0.0 /100WBC Absolute Seg Neuts 3.3 (1.4-5.7) Band Neutrophils # 0.3 Lymphocytes # (Manual) 0.4 L (0.6-2.4) Monocytes # (Manual) 0.1 (0.0-0.8) Eosinophils # (Manual) 0.0 (0.0-0.7) Absolute Myelocytes Nucleated RBCs # 0 K/uL Platelet Estimate Lactate (0.20-2.00) mmol/L Sodium 131 L (136-148) mmol/L Potassium 3.1 L (3.5-5.1) mmol/L Chloride 95 L (98-107) mmol/L Carbon Dioxide 29.3 (21.0-32.0) mmol/L BUN 20 H (7.0-18.0) mg/dL Creatinine 0.6 L (0.8-1.3) mg/dL Est Cr Clr Drug Dosing 99.83 mL/min Estimated GFR (MDRD) > 60.0 ml/min Glucose 101 (74-106) mg/dL Calcium 7.2 L (8.5-10.1) mg/dL Magnesium (1.8-2.4) mg/dL Total Bilirubin (0.2-1.0) mg/dL AST (15-37) IU/L ALT (14-63) IU/L Alkaline Phosphatase (46-116) U/L Troponin I 0.073 H* (0.000-0.056) ng/mL Total Protein (6.4-8.2) g/dL Albumin (3.4-5.0) g/dL Globulin (2.6-4.0) g/dL Albumin/Globulin Ratio (0.9-1.6) Urine Color Urine Appearance Urine pH (5.0-8.0) Ur Specific [place] (1.001-1.035) Urine Protein (NEGATIVE) mg/dL Urine Glucose (UA) (NEGATIVE) mg/dL Urine Ketones (NEGATIVE) mg/dL Urine Occult Blood (NEGATIVE) Urine Nitrite (NEGATIVE) Urine Bilirubin (NEGATIVE) Urine Urobilinogen (<2.0) EU/dL Ur Leukocyte Esterase (NEGATIVE) Urine RBC (0-2/HPF) Urine WBC (0-5/HPF) Ur Epithelial Cells (NONE-FEW) Urine Bacteria (NEGATIVE) Urine Mucus (NONE-MOD) 09/13/18 Range/Units 05:25 WBC (4.0-11.0) K/uL RBC (4.50-5.90) M/uL Hgb (13.0-17.0) g/dL Hct (38.0-50.0) % MCV (80.0-98.0) fL MCH (27.0-32.0) pg MCHC (31.0-37.0) g/dL RDW Std Deviation (28.0-62.0) fl RDW Coeff of [place] (11.0-15.0) % Plt Count (150-400) K/uL MPV (7.40-12.00) fL Add Manual Diff Neutrophils % (Manual) (48.0-80.0) % Band Neutrophils % % Lymphocytes % (Manual) (16.0-40.0) % Monocytes % (Manual) (0.0-15.0) % Eosinophils % (Manual) (0.0-7.0) % Myelocytes % % Nucleated RBC % /100WBC Absolute Seg Neuts (1.4-5.7) Band Neutrophils # Lymphocytes # (Manual) (0.6-2.4) Monocytes # (Manual) (0.0-0.8) Eosinophils # (Manual) (0.0-0.7) Absolute Myelocytes Nucleated RBCs # K/uL Platelet Estimate Lactate (0.20-2.00) mmol/L Sodium (136-148) mmol/L Potassium (3.5-5.1) mmol/L Chloride (98-107) mmol/L Carbon Dioxide (21.0-32.0) mmol/L BUN (7.0-18.0) mg/dL Creatinine (0.8-1.3) mg/dL Est Cr Clr Drug Dosing mL/min Estimated GFR (MDRD) ml/min Glucose (74-106) mg/dL Calcium (8.5-10.1) mg/dL Magnesium 2.1 (1.8-2.4) mg/dL Total Bilirubin (0.2-1.0) mg/dL AST (15-37) IU/L ALT (14-63) IU/L Alkaline Phosphatase (46-116) U/L Troponin I (0.000-0.056) ng/mL Total Protein (6.4-8.2) g/dL Albumin (3.4-5.0) g/dL Globulin (2.6-4.0) g/dL Albumin/Globulin Ratio (0.9-1.6) Urine Color Urine Appearance Urine pH (5.0-8.0) Ur Specific [place] (1.001-1.035) Urine Protein (NEGATIVE) mg/dL Urine Glucose (UA) (NEGATIVE) mg/dL Urine Ketones (NEGATIVE) mg/dL Urine Occult Blood (NEGATIVE) Urine Nitrite (NEGATIVE) Urine Bilirubin (NEGATIVE) Urine Urobilinogen (<2.0) EU/dL Ur Leukocyte Esterase (NEGATIVE) Urine RBC (0-2/HPF) Urine WBC (0-5/HPF) Ur Epithelial Cells (NONE-FEW) Urine Bacteria (NEGATIVE) Urine Mucus (NONE-MOD) [place] Results Last 24 Hours: Microbiology 09/12/18 12:41 Anaerobic Blood Culture - Final Blood - Venous - Lab Draw 09/12/18 12:23 Anaerobic Blood Culture - Final Blood - Venous Med Orders - Current: Current Medications Albuterol/Ipratropium (Duoneb 3.0-0.5 Mg/3 Ml) 3 ml NEB Q4HRRT PRN PRN Reason: SOB/wheezing Last Admin: 09/12/18 18:27 Dose: 3 ml Sodium Chloride (Normal Saline) 1,000 mls @ 125 mls/hr IV ASDIRECTED [facility] Last Admin: 09/13/18 06:35 Dose: 125 mls/hr Piperacillin Sod/Tazobactam (Sod 3.375 gm/ Sodium Chloride) 50 mls @ 100 mls/ hr IV Q6H [facility] Last Admin: 09/13/18 06:26 Dose: 100 mls/hr Azithromycin 500 mg/ Sodium (Chloride) 250 mls @ 250 mls/hr IV Q24H [facility] Last Admin: 09/12/18 22:58 Dose: 250 mls/hr Vancomycin HCl 1 gm/ Sodium (Chloride) 250 mls @ 166 mls/hr IV Q12H [facility] Ondansetron HCl (Zofran) 8 mg PO Q8H PRN PRN Reason: Nausea/Vomiting Oxycodone HCl (Oxycodone) 5 mg PO Q8H PRN PRN Reason: Pain Potassium Chloride (Klor-Con M20) 40 meq PO BID@0830,1200 [facility] Stop: 09/13/18 12:01 Last Admin: 09/13/18 08:46 Dose: 40 meq Vancomycin HCl (Pharmacy To Dose - Vancomycin) 1 dose .XX ASDIRECTED [facility] Discontinued Medications Aspirin (Aspirin) 325 mg PO ONETIME ONE Stop: 09/13/18 01:06 Last Admin: 09/13/18 01:39 Dose: 325 mg Piperacillin Sod/Tazobactam (Sod 3.375 gm/ Sodium Chloride) 50 mls @ 100 mls/ hr IV ONETIME ONE Stop: 09/12/18 12:44 Last Admin: 09/12/18 12:30 Dose: 100 mls/hr Sodium Chloride (Normal Saline) 1,000 mls @ 125 mls/hr IV STAT [facility] Last Admin: 09/12/18 12:30 Dose: 125 mls/hr Vancomycin HCl 1 gm/ Sodium (Chloride) 250 mls @ 250 mls/hr IV ONETIME ONE Stop: 09/12/18 13:14 Last Admin: 09/12/18 13:19 Dose: Not Given Vancomycin HCl 1 gm/ Sodium (Chloride) 250 mls @ 250 mls/hr IV ONETIME ONE Stop: 09/12/18 13:59 Last Admin: 09/12/18 13:44 Dose: 250 mls/hr Vancomycin HCl 1 gm/ Sodium (Chloride) 250 mls @ 166 mls/hr IV Q12H [facility] Last Admin: 09/13/18 00:35 Dose: 166 mls/hr Sodium Chloride (Normal Saline) 500 mls @ 999 mls/hr IV STAT [facility] Stop: 09/13/18 08:46 Potassium Chloride (Klor-Con M20) 40 meq PO ONETIME ONE Stop: 09/12/18 18:12 Last Admin: 09/12/18 18:42 Dose: 40 meq - Exam General: Alert, Oriented, Cooperative, No Acute Distress Lungs: Clear to Auscultation, Normal Respiratory Effort Cardiovascular: Regular Rate, Regular Rhythm GI/Abdominal Exam: Normal Bowel Sounds, Soft, Non-Tender Extremities: Normal Inspection, Normal Range of Motion, Non-Tender, No Pedal Edema Neurological: No New Focal Deficit Psy/Mental Status: Alert, Normal Affect, Normal Mood - Problem List & Annotations (1) Healthcare-associated pneumonia SNOMED Code(s): 014391175, 744873537 Code(s): J18.9 - PNEUMONIA, UNSPECIFIED ORGANISM Status: Acute Current Visit: Yes (2) Hypotension SNOMED Code(s): 97682323 Code(s): I95.9 - HYPOTENSION, UNSPECIFIED Status: Acute Current Visit: Yes (3) Systemic inflammatory response syndrome SNOMED Code(s): 841129612 Code(s): R65.10 - SIRS OF NON-INFECTIOUS ORIGIN W/O ACUTE ORGAN DYSFUNCTION Status: Acute Current Visit: Yes (4) Bladder cancer metastasized to bone SNOMED Code(s): 31716671, 365251717 Code(s): C67.9 - MALIGNANT NEOPLASM OF BLADDER, UNSPECIFIED; C79.51 - SECONDARY MALIGNANT NEOPLASM OF BONE Status: Chronic Current Visit: No (5) HTN (hypertension) SNOMED Code(s): 60276269 Code(s): I10 - ESSENTIAL (PRIMARY) HYPERTENSION Status: Chronic Current Visit: No Qualifiers: Hypertension type: essential hypertension Qualified Code(s): I10 - Essential (primary) hypertension (6) JAQUAN (obstructive sleep apnea) SNOMED Code(s): 14242938 Code(s): G47.33 - OBSTRUCTIVE SLEEP APNEA (ADULT) (PEDIATRIC) Status: Chronic Current Visit: No - Problem List Review Problem List Initiated/Reviewed/Updated: Yes - My Orders Last 24 Hours: My Active Orders 09/13/18 08:30 Potassium Chloride [Klor-Con M20] 40 meq PO BID@0830,1200 - Plan Plan:: 78 yo male admitted for pneumonia. 1. Healthcare associated Pneumonia: treating with broad spectrum antibiotics with Zosyn, Vancomycin, and Azithromycin. Cultures pending. Continue fluids. 2. Mildly elevated troponin: will continue to trend. Likely ischemic demand from hypotension 3. Hyponatremia: Improving with IVFs, will continue hold HCTZ 4. Hypokalemia: replacing with PO KCL today, will recheck. Magnesium WNL. VTE prophylaxis: SCDs, reports possible blood in stool will hold off on Heparin and order Occult stool. Dispo: 2-3 days pending improvement
[2018-09-13] MEDS: Albuterol/Ipratropium 3.0-0.5 MG/3 ML Neb Soln NEB PRN (13:42)
[2018-09-13] MEDS: oxyCODONE 5 MG Tab PO PRN (16:08)
[2018-09-13] MEDS: Azithromycin 500 MG in Sodium Chloride 0.9% 250 ML IV SCH (21:45)
[2018-09-14] MEDS: Piperacillin/Tazobactam 3.375 GM in Sodium Chloride 0.9% 50 ML IV SCH ×4 (00:27→18:02)
[2018-09-14] MEDS: Sodium Chloride 0.9% 1,000 ML IV SCH (04:23)
[2018-09-14 05:48] LABS: CHLORIDE,CL 100 mmol/L (98-107); SODIUM,NA 134 mmol/L (136-148)
--- NOTE | 2018-09-14 08:14 | PCM.PN ---
- General Info Date of Service: 09/14/18 Admission Dx/Problem (Free Text): Admission Diagnosis/Problem Admission Diagnosis/Problem Hypotension Subjective Update: Feeling weak today. Having a cough, congested but unable to cough up completely. No chest pain. Feels SOB is ok. L shoulder pain still there, but is chronic. Oxycodone helps. Functional Status: Reports: Pain Controlled, Tolerating Diet, Ambulating, Urinating - Review of Systems General: Reports: Weakness, Malaise HEENT: Reports: No Symptoms. Denies: Headaches, Sore Throat, Visual Changes Pulmonary: Reports: Cough. Denies: Shortness of Breath, Sputum, Wheezing Cardiovascular: Reports: No Symptoms. Denies: Chest Pain Gastrointestinal: Reports: No Symptoms. Denies: Abdominal Pain, Nausea, Vomiting Genitourinary: Reports: No Symptoms. Denies: Dysuria, Frequency Musculoskeletal: Reports: No Symptoms Skin: Reports: No Symptoms Neurological: Reports: No Symptoms Psychiatric: Reports: No Symptoms - Patient Data Vitals - Most Recent: Last Vital Signs Temp 100.5 F 09/14/18 08:00 Pulse 106 H 09/14/18 08:00 Resp 18 09/14/18 08:00 BP 97/51 L 09/14/18 08:00 Pulse Ox 93 L 09/14/18 08:00 Weight - Most Recent: 82.8 kg I&O - Last 24 Hours: Intake & Output 09/13/18 09/14/18 09/14/18 22:59 06:59 14:59 Intake Total 2326 2250 Output Total 0 Balance 2326 2250 Lab Results Last 24 Hours: Laboratory Results - last 24 hr 09/13/18 09/14/18 09/14/18 Range/Units 05:25 05:04 05:04 WBC 3.73 L (4.0-11.0) K/uL RBC 2.85 L (4.50-5.90) M/uL Hgb 7.7 L (13.0-17.0) g/dL Hct 23.2 L (38.0-50.0) % MCV 81.4 (80.0-98.0) fL MCH 27.0 (27.0-32.0) pg MCHC 33.2 (31.0-37.0) g/dL RDW Std Deviation 52.5 (28.0-62.0) fl RDW Coeff of [place] 18 H (11.0-15.0) % Plt Count 75 L (150-400) K/uL MPV 8.90 (7.40-12.00) fL Add Manual Diff YES Neutrophils % (Manual) 68 (48.0-80.0) % Band Neutrophils % 12 % Lymphocytes % (Manual) 15 L (16.0-40.0) % Monocytes % (Manual) 4 (0.0-15.0) % Eosinophils % (Manual) 1 (0.0-7.0) % Nucleated RBC % 0.0 /100WBC Absolute Seg Neuts 2.5 (1.4-5.7) Band Neutrophils # 0.4 Lymphocytes # (Manual) 0.6 (0.6-2.4) Monocytes # (Manual) 0.1 (0.0-0.8) Eosinophils # (Manual) 0.0 (0.0-0.7) Nucleated RBCs # 0 K/uL Sodium 134 L (136-148) mmol/L Potassium 2.9 L (3.5-5.1) mmol/L Chloride 100 (98-107) mmol/L Carbon Dioxide 26.8 (21.0-32.0) mmol/L BUN 11 (7.0-18.0) mg/dL Creatinine 0.4 L (0.8-1.3) mg/dL Est Cr Clr Drug Dosing 149.75 mL/min Estimated GFR (MDRD) > 60.0 ml/min Glucose 90 (74-106) mg/dL Calcium 6.5 L (8.5-10.1) mg/dL Magnesium 2.1 (1.8-2.4) mg/dL Troponin I 0.107 H* (0.000-0.056) ng/mL [facility] Results Last 24 Hours: Microbiology 09/12/18 13:15 Urine Culture - Final Urine, Catheterized MIXED RUI <1000 CFU/ML 09/12/18 12:41 Aerobic Blood Culture - Preliminary Blood - Venous - Lab Draw NO GROWTH AFTER 1 DAY Anaerobic Blood Culture - Final 09/12/18 12:23 Aerobic Blood Culture - Preliminary Blood - Venous NO GROWTH AFTER 1 DAY Anaerobic Blood Culture - Final Med Orders - Current: Current Medications Albuterol/Ipratropium (Duoneb 3.0-0.5 Mg/3 Ml) 3 ml NEB Q4HRRT PRN PRN Reason: SOB/wheezing Last Admin: 09/13/18 13:42 Dose: 3 ml Sodium Chloride (Normal Saline) 1,000 mls @ 125 mls/hr IV ASDIRECTED [facility] Last Admin: 09/14/18 04:23 Dose: 125 mls/hr Piperacillin Sod/Tazobactam (Sod 3.375 gm/ Sodium Chloride) 50 mls @ 100 mls/ hr IV Q6H [facility] Last Admin: 09/14/18 06:28 Dose: 100 mls/hr Azithromycin 500 mg/ Sodium (Chloride) 250 mls @ 250 mls/hr IV Q24H [facility] Last Admin: 09/13/18 21:45 Dose: 250 mls/hr Vancomycin HCl 1 gm/ Sodium (Chloride) 250 mls @ 166 mls/hr IV Q12H [facility] Last Admin: 09/14/18 01:26 Dose: 166 mls/hr Ondansetron HCl (Zofran) 8 mg PO Q8H PRN PRN Reason: Nausea/Vomiting Oxycodone HCl (Oxycodone) 5 mg PO Q8H PRN PRN Reason: Pain Last Admin: 09/13/18 16:08 Dose: 5 mg Discontinued Medications Aspirin (Aspirin) 325 mg PO ONETIME ONE Stop: 09/13/18 01:06 Last Admin: 09/13/18 01:39 Dose: 325 mg Piperacillin Sod/Tazobactam (Sod 3.375 gm/ Sodium Chloride) 50 mls @ 100 mls/ hr IV ONETIME ONE Stop: 09/12/18 12:44 Last Admin: 09/12/18 12:30 Dose: 100 mls/hr Sodium Chloride (Normal Saline) 1,000 mls @ 125 mls/hr IV STAT [facility] Last Admin: 09/12/18 12:30 Dose: 125 mls/hr Vancomycin HCl 1 gm/ Sodium (Chloride) 250 mls @ 250 mls/hr IV ONETIME ONE Stop: 09/12/18 13:14 Last Admin: 09/12/18 13:19 Dose: Not Given Vancomycin HCl 1 gm/ Sodium (Chloride) 250 mls @ 250 mls/hr IV ONETIME ONE Stop: 09/12/18 13:59 Last Admin: 09/12/18 13:44 Dose: 250 mls/hr Vancomycin HCl 1 gm/ Sodium (Chloride) 250 mls @ 166 mls/hr IV Q12H [facility] Last Admin: 09/13/18 00:35 Dose: 166 mls/hr Sodium Chloride (Normal Saline) 500 mls @ 999 mls/hr IV STAT [facility] Stop: 09/13/18 08:46 Potassium Chloride (Klor-Con M20) 40 meq PO ONETIME ONE Stop: 09/12/18 18:12 Last Admin: 09/12/18 18:42 Dose: 40 meq Potassium Chloride (Klor-Con M20) 40 meq PO BID@0830,1200 [facility] Stop: 09/13/18 12:01 Last Admin: 09/13/18 12:49 Dose: 40 meq Vancomycin HCl (Pharmacy To Dose - Vancomycin) 1 dose .XX ASDIRECTED [facility] - Exam Quality Assessment: Supplemental Oxygen General: Alert, Oriented, Cooperative, No Acute Distress Lungs: Decreased Breath Sounds, Crackles Cardiovascular: Regular Rhythm, Tachycardia GI/Abdominal Exam: Normal Bowel Sounds, Soft, Non-Tender Extremities: Normal Inspection, Normal Range of Motion, Non-Tender, No Pedal Edema Wound/Incisions: Healing Well Neurological: No New Focal Deficit Psy/Mental Status: Alert, Normal Affect, Normal Mood - Problem List & Annotations (1) Healthcare-associated pneumonia SNOMED Code(s): 729181554, 851264766 Code(s): J18.9 - PNEUMONIA, UNSPECIFIED ORGANISM Status: Acute Current Visit: Yes (2) Hypotension SNOMED Code(s): 83859689 Code(s): I95.9 - HYPOTENSION, UNSPECIFIED Status: Acute Current Visit: Yes (3) Systemic inflammatory response syndrome SNOMED Code(s): 701105783 Code(s): R65.10 - SIRS OF NON-INFECTIOUS ORIGIN W/O ACUTE ORGAN DYSFUNCTION Status: Acute Current Visit: Yes (4) Bladder cancer metastasized to bone SNOMED Code(s): 39566231, 195453977 Code(s): C67.9 - MALIGNANT NEOPLASM OF BLADDER, UNSPECIFIED; C79.51 - SECONDARY MALIGNANT NEOPLASM OF BONE Status: Chronic Current Visit: No (5) HTN (hypertension) SNOMED Code(s): 40737999 Code(s): I10 - ESSENTIAL (PRIMARY) HYPERTENSION Status: Chronic Current Visit: No Qualifiers: Hypertension type: essential hypertension Qualified Code(s): I10 - Essential (primary) hypertension (6) JAQUAN (obstructive sleep apnea) SNOMED Code(s): 75550502 Code(s): G47.33 - OBSTRUCTIVE SLEEP APNEA (ADULT) (PEDIATRIC) Status: Chronic Current Visit: No - Problem List Review Problem List Initiated/Reviewed/Updated: Yes - My Orders Last 24 Hours: My Active Orders 09/13/18 13:56 Hemoccult [OCCULT BLOOD DIAGNOSTIC] [OP] Routine 09/14/18 08:11 ALBUMIN [CHEM] Routine MAGNESIUM [CHEM] Routine 09/15/18 05:11 BMP [BASIC METABOLIC PANEL,BMP] [CHEM] AM CBC WITH AUTO DIFF [HEME] AM 09/16/18 05:11 BMP [BASIC METABOLIC PANEL,BMP] [CHEM] AM CBC WITH AUTO DIFF [HEME] AM 09/17/18 05:11 BMP [BASIC METABOLIC PANEL,BMP] [CHEM] AM CBC WITH AUTO DIFF [HEME] AM - Plan Plan:: 78 yo male admitted for pneumonia. 1. Healthcare associated Pneumonia: Continue treating with broad spectrum antibiotics with Zosyn, Vancomycin, and Azithromycin. Cultures pending. 2. Mildly elevated troponin: will continue to trend. Likely ischemic demand from hypotension 3. Hyponatremia: Stable. will continue hold HCTZ 4. Hypokalemia: replacing with PO KCL today, will recheck. Magnesium WNL. 5. Anemia: Feeling weak today, Hgb 7.7, likely some dilutional, but will transfuse with 2 units PRBCs. Stop IVFs today. Lasix 20 mg IV in between units. VTE prophylaxis: SCDs, reports possible blood in stool will hold off on Heparin and order Occult stool. Dispo: 2-3 days pending improvement
[2018-09-14] MEDS: Potassium Chloride 10 MEQ Tab.ER PO SCH ×3 (08:46→17:58)
[2018-09-14] MEDS: Azithromycin 500 MG in Sodium Chloride 0.9% 250 ML IV SCH (10:20)
[2018-09-14] MEDS ORDERED: Furosemide 20 MG/2 ML VIAL IVPUSH ONE (10:31)
[2018-09-14] MEDS ORDERED: Magnesium Hydroxide 400 MG/5 ML Susp 30 ML Cup PO PRN (10:46)
[2018-09-14] MEDS ORDERED: Cyclobenzaprine 5 MG Tab PO PRN (10:46)
[2018-09-14] MEDS: Metoprolol Tartrate 50 MG Tab PO SCH ×2 (13:21→20:51)
[2018-09-14] MEDS ORDERED: Furosemide 20 MG/2 ML VIAL ONE (15:02)
[2018-09-14] MEDS: Albuterol/Ipratropium 3.0-0.5 MG/3 ML Neb Soln NEB PRN (15:19)
[2018-09-14] MEDS: Meclizine 25 MG Tab PO SCH (20:51)
[2018-09-14] MEDS: Latanoprost 0.005% Ophth Soln 2.5 ML Bottle EYEBOTH SCH (23:04)
[2018-09-15] MEDS: Piperacillin/Tazobactam 3.375 GM in Sodium Chloride 0.9% 50 ML IV SCH ×4 (01:01→19:12)
[2018-09-15 06:00] LABS: CHLORIDE,CL 100 mmol/L (98-107); SODIUM,NA 135 mmol/L (136-148)
[2018-09-15] MEDS: Levothyroxine 25 MCG Tab PO SCH (06:32)
[2018-09-15] MEDS: oxyCODONE 5 MG Tab PO PRN (06:36)
[2018-09-15] MEDS: Meclizine 25 MG Tab PO SCH ×2 (09:37→21:45)
[2018-09-15] MEDS: Potassium Chloride 10 MEQ Tab.ER PO SCH ×3 (09:37→16:58)
[2018-09-15] MEDS: Loratadine 10 MG Tab PO SCH (09:38)
[2018-09-15] MEDS: Metoprolol Tartrate 50 MG Tab PO SCH ×2 (09:38→21:45)
[2018-09-15] MEDS: Pantoprazole 40 MG Tab.CR PO SCH (09:38)
[2018-09-15] MEDS: Fluticasone Propionate Nasal Spray 16 GM Bottle NASBOTH SCH (09:39)
[2018-09-15] MEDS: Azithromycin 500 MG in Sodium Chloride 0.9% 250 ML IV SCH (09:39)
--- NOTE | 2018-09-15 09:40 | PCM.PN ---
Addendum entered and electronically signed by No Manzo NP 09/15/18 14:34 : Evaluated by ST, noted to cough with everything. ST recommends NPO status. Uvaldo declines this and wants to eat. I discussed this with Shaggy, nephew. They would like to have modified barium swallow evaluation to help decide next step. Hospice or at least comfort measure were recommended due to his current prognosis and likely progression of bladder cancer. [facility]BS is tentatively set up for Tuesday at 2:30 pm with [address]ology and ST. Original Note: - General Info Date of Service: 09/15/18 Admission Dx/Problem (Free Text): Admission Diagnosis/Problem Admission Diagnosis/Problem Hypotension Subjective Update: Reports feeling better today. Reports cough is still there. No chest pain. L Shoulder pain is intermittent, but chronic from radiation. Hoping to get up and ambulating. Reports he got up by himself overnight and ambulated. Functional Status: Reports: Pain Controlled, Tolerating Diet, Urinating. Denies : Ambulating - Review of Systems General: Reports: Weakness, Malaise. Denies: Fever HEENT: Reports: No Symptoms. Denies: Headaches, Sore Throat Pulmonary: Reports: No Symptoms, Cough. Denies: Sputum Cardiovascular: Reports: No Symptoms. Denies: Chest Pain, Palpitations Gastrointestinal: Reports: No Symptoms. Denies: Abdominal Pain, Nausea, Vomiting Genitourinary: Reports: No Symptoms Musculoskeletal: Reports: Shoulder Pain (L, chronic) Neurological: Reports: No Symptoms Psychiatric: Reports: No Symptoms - Patient Data Vitals - Most Recent: Last Vital Signs Temp 99.1 F 09/15/18 03:57 Pulse 92 09/15/18 03:57 Resp 18 09/15/18 03:57 BP 87/45 L 09/15/18 03:57 Pulse Ox 93 L 09/15/18 03:57 Weight - Most Recent: 83.064 kg I&O - Last 24 Hours: Intake & Output 09/14/18 09/15/18 09/15/18 22:59 06:59 14:59 Intake Total 912 300 Output Total 0 Balance 912 300 Lab Results Last 24 Hours: Laboratory Results - last 24 hr 09/14/18 09/15/18 09/15/18 Range/Units 10:03 05:00 05:00 WBC 4.39 (4.0-11.0) K/uL RBC 3.56 L (4.50-5.90) M/uL Hgb 9.8 L (13.0-17.0) g/dL Hct 29.5 L (38.0-50.0) % MCV 82.9 (80.0-98.0) fL MCH 27.5 (27.0-32.0) pg MCHC 33.2 (31.0-37.0) g/dL RDW Std Deviation 52.3 (28.0-62.0) fl RDW Coeff of Ofelia 17 H (11.0-15.0) % Plt Count 75 L (150-400) K/uL MPV 8.90 (7.40-12.00) fL Add Manual Diff YES Neutrophils % (Manual) 70 (48.0-80.0) % Band Neutrophils % 14 % Lymphocytes % (Manual) 12 L (16.0-40.0) % Monocytes % (Manual) 4 (0.0-15.0) % Nucleated RBC % 0.6 /100WBC Absolute Seg Neuts 3.1 (1.4-5.7) Band Neutrophils # 0.6 Lymphocytes # (Manual) 0.5 L (0.6-2.4) Monocytes # (Manual) 0.2 (0.0-0.8) Nucleated RBCs # 0 K/uL Sodium 135 L (136-148) mmol/L Potassium 3.1 L (3.5-5.1) mmol/L Chloride 100 (98-107) mmol/L Carbon Dioxide 30.0 (21.0-32.0) mmol/L BUN 13 (7.0-18.0) mg/dL Creatinine 0.4 L (0.8-1.3) mg/dL Est Cr Clr Drug Dosing 149.75 mL/min Estimated GFR (MDRD) > 60.0 ml/min Glucose 82 (74-106) mg/dL Calcium 6.5 L (8.5-10.1) mg/dL Magnesium (1.8-2.4) mg/dL Troponin I 0.092 H* (0.000-0.056) ng/mL Blood Type O POSITIVE Antibody Screen NEGATIVE Crossmatch See Detail 09/15/18 Range/Units 05:00 WBC (4.0-11.0) K/uL RBC (4.50-5.90) M/uL Hgb (13.0-17.0) g/dL Hct (38.0-50.0) % MCV (80.0-98.0) fL MCH (27.0-32.0) pg MCHC (31.0-37.0) g/dL RDW Std Deviation (28.0-62.0) fl RDW Coeff of Ofelia (11.0-15.0) % Plt Count (150-400) K/uL MPV (7.40-12.00) fL Add Manual Diff Neutrophils % (Manual) (48.0-80.0) % Band Neutrophils % % Lymphocytes % (Manual) (16.0-40.0) % Monocytes % (Manual) (0.0-15.0) % Nucleated RBC % /100WBC Absolute Seg Neuts (1.4-5.7) Band Neutrophils # Lymphocytes # (Manual) (0.6-2.4) Monocytes # (Manual) (0.0-0.8) Nucleated RBCs # K/uL Sodium (136-148) mmol/L Potassium (3.5-5.1) mmol/L Chloride (98-107) mmol/L Carbon Dioxide (21.0-32.0) mmol/L BUN (7.0-18.0) mg/dL Creatinine (0.8-1.3) mg/dL Est Cr Clr Drug Dosing mL/min Estimated GFR (MDRD) ml/min Glucose (74-106) mg/dL Calcium (8.5-10.1) mg/dL Magnesium 1.7 L (1.8-2.4) mg/dL Troponin I (0.000-0.056) ng/mL Blood Type Antibody Screen Crossmatch [facility] Results Last 24 Hours: Microbiology 09/13/18 14:00 Stool Occult Blood (KENNEDY) - Final Stool / Feces NEGATIVE OCCULT BLOOD REFERENCE RANGE: NEGATIVE 09/12/18 12:41 Aerobic Blood Culture - Preliminary Blood - Venous - Lab Draw NO GROWTH AFTER 2 DAYS Anaerobic Blood Culture - Final 09/12/18 12:23 Aerobic Blood Culture - Preliminary Blood - Venous NO GROWTH AFTER 2 DAYS Anaerobic Blood Culture - Final 09/12/18 13:15 Urine Culture - Final Urine, Catheterized MIXED RUI <1000 CFU/ML Med Orders - Current: Current Medications Albuterol/Ipratropium (Duoneb 3.0-0.5 Mg/3 Ml) 3 ml NEB Q4HRRT PRN PRN Reason: SOB/wheezing Last Admin: 09/14/18 15:19 Dose: 3 ml Cyclobenzaprine HCl (Flexeril) 5 mg PO TID PRN PRN Reason: muscle spasms Fluticasone Propionate (Flonase) 0 gm NASBOTH QAM [facility] Piperacillin Sod/Tazobactam (Sod 3.375 gm/ Sodium Chloride) 50 mls @ 100 mls/ hr IV Q6H [facility] Last Admin: 09/15/18 06:30 Dose: 100 mls/hr Vancomycin HCl 1 gm/ Sodium (Chloride) 250 mls @ 166 mls/hr IV Q12H [facility] Last Admin: 09/15/18 01:35 Dose: 166 mls/hr Azithromycin 500 mg/ Sodium (Chloride) 250 mls @ 250 mls/hr IV Q24H [facility] Last Admin: 09/14/18 10:20 Dose: 250 mls/hr Latanoprost (Xalatan 0.005% [facility] Sol) 0 ml EYEBOTH BEDTIME [facility] Last Admin: 09/14/18 23:04 Dose: 1 drop Levothyroxine Sodium (Levothyroxine) 25 mcg PO ACBREAKFAST [facility] Last Admin: 09/15/18 06:32 Dose: 25 mcg Loratadine (Claritin) 10 mg PO QAM [facility] Magnesium Hydroxide (Milk Of Magnesia) 30 ml PO Q24H PRN PRN Reason: Constipation Meclizine HCl (Antivert) 50 mg PO BID [facility] Last Admin: 09/14/18 20:51 Dose: 50 mg Metoprolol Tartrate (Lopressor) 50 mg PO BID [facility] Last Admin: 09/14/18 20:51 Dose: 50 mg Ondansetron HCl (Zofran) 8 mg PO Q8H PRN PRN Reason: Nausea/Vomiting Oxycodone HCl (Oxycodone) 5 mg PO Q8H PRN PRN Reason: Pain Last Admin: 09/15/18 06:36 Dose: 5 mg Pantoprazole Sodium (Protonix) 40 mg PO ACBREAKFAST [facility] Potassium Chloride (Klor-Con 10) 40 meq PO TID@0830,1200,1700 [facility] Stop: 09/15/18 17:01 Discontinued Medications Aspirin (Aspirin) 325 mg PO ONETIME ONE Stop: 09/13/18 01:06 Last Admin: 09/13/18 01:39 Dose: 325 mg Furosemide (Lasix) 20 mg IVPUSH ONCALL ONE Stop: 09/14/18 10:32 Last Admin: 09/14/18 15:11 Dose: 20 mg Furosemide (Lasix) Confirm Administered Dose 20 mg .ROUTE .STK-MED ONE Stop: 09/14/18 15:03 Last Admin: 09/14/18 15:07 Dose: Not Given Piperacillin Sod/Tazobactam (Sod 3.375 gm/ Sodium Chloride) 50 mls @ 100 mls/ hr IV ONETIME ONE Stop: 09/12/18 12:44 Last Admin: 09/12/18 12:30 Dose: 100 mls/hr Sodium Chloride (Normal Saline) 1,000 mls @ 125 mls/hr IV STAT [facility] Last Admin: 09/12/18 12:30 Dose: 125 mls/hr Vancomycin HCl 1 gm/ Sodium (Chloride) 250 mls @ 250 mls/hr IV ONETIME ONE Stop: 09/12/18 13:14 Last Admin: 09/12/18 13:19 Dose: Not Given Vancomycin HCl 1 gm/ Sodium (Chloride) 250 mls @ 250 mls/hr IV ONETIME ONE Stop: 09/12/18 13:59 Last Admin: 09/12/18 13:44 Dose: 250 mls/hr Sodium Chloride (Normal Saline) 1,000 mls @ 125 mls/hr IV ASDIRECTED [facility] Last Admin: 09/14/18 04:23 Dose: 125 mls/hr Vancomycin HCl 1 gm/ Sodium (Chloride) 250 mls @ 166 mls/hr IV Q12H [facility] Last Admin: 09/13/18 00:35 Dose: 166 mls/hr Azithromycin 500 mg/ Sodium (Chloride) 250 mls @ 250 mls/hr IV Q24H [facility] Last Admin: 09/13/18 21:45 Dose: 250 mls/hr Sodium Chloride (Normal Saline) 500 mls @ 999 mls/hr IV STAT YAJAIRA Stop: 09/13/18 08:46 Potassium Chloride (Klor-Con M20) 40 meq PO ONETIME ONE Stop: 09/12/18 18:12 Last Admin: 09/12/18 18:42 Dose: 40 meq Potassium Chloride (Klor-Con M20) 40 meq PO BID@0830,1200 [facility] Stop: 09/13/18 12:01 Last Admin: 09/13/18 12:49 Dose: 40 meq Potassium Chloride (Klor-Con 10) 40 meq PO TID@0900,1200,1700 [facility] Stop: 09/14/18 17:01 Last Admin: 09/14/18 17:58 Dose: 40 meq Vancomycin HCl (Pharmacy To Dose - Vancomycin) 1 dose .XX ASDIRECTED YAJAIRA - Exam General: Alert, Oriented, Cooperative, No Acute Distress Lungs: Rhonchi Cardiovascular: Regular Rate, Regular Rhythm GI/Abdominal Exam: Normal Bowel Sounds, Soft, Non-Tender, No Organomegaly, No Mass Back Exam: Normal Inspection, Full Range of Motion Extremities: Normal Inspection, Normal Range of Motion, Non-Tender, No Pedal Edema Neurological: No New Focal Deficit Psy/Mental Status: Alert, Normal Affect, Normal Mood - Problem List & Annotations (1) Healthcare-associated pneumonia SNOMED Code(s): 950438402, 253069142 Code(s): J18.9 - PNEUMONIA, UNSPECIFIED ORGANISM Status: Acute Current Visit: Yes (2) Hypotension SNOMED Code(s): 12906279 Code(s): I95.9 - HYPOTENSION, UNSPECIFIED Status: Acute Current Visit: Yes (3) Systemic inflammatory response syndrome SNOMED Code(s): 715513475 Code(s): R65.10 - SIRS OF NON-INFECTIOUS ORIGIN W/O ACUTE ORGAN DYSFUNCTION Status: Acute Current Visit: Yes (4) Bladder cancer metastasized to bone SNOMED Code(s): 45965396, 854605806 Code(s): C67.9 - MALIGNANT NEOPLASM OF BLADDER, UNSPECIFIED; C79.51 - SECONDARY MALIGNANT NEOPLASM OF BONE Status: Chronic Current Visit: No (5) HTN (hypertension) SNOMED Code(s): 50171032 Code(s): I10 - ESSENTIAL (PRIMARY) HYPERTENSION Status: Chronic Current Visit: No Qualifiers: Hypertension type: essential hypertension Qualified Code(s): I10 - Essential (primary) hypertension (6) JAQUAN (obstructive sleep apnea) SNOMED Code(s): 33739185 Code(s): G47.33 - OBSTRUCTIVE SLEEP APNEA (ADULT) (PEDIATRIC) Status: Chronic Current Visit: No - Problem List Review Problem List Initiated/Reviewed/Updated: Yes - My Orders Last 24 Hours: My Active Orders 09/14/18 09:41 Transfuse Red Blood Cells [COMM] Routine 09/14/18 09:42 Verify Patient Consent Obtain [RC] ASDIRECTED 09/14/18 10:36 Communication Order [RC] PRN 09/14/18 10:46 Cyclobenzaprine [Flexeril] 5 mg PO TID PRN Magnesium Hydroxide [Milk of Magnesia] 30 ml PO Q24H PRN 09/14/18 11:00 Metoprolol Tartrate [Lopressor] 50 mg PO BID 09/14/18 21:00 Latanoprost [Xalatan 0.005% Ophth Soln] 0 ml EYEBOTH BEDTIME Meclizine [Antivert] 50 mg PO BID 09/15/18 07:30 Levothyroxine 25 mcg PO ACBREAKFAST 09/15/18 08:30 Potassium Chloride [Klor-Con 10] 40 meq PO TID@0830,1200,1700 09/15/18 09:00 Fluticasone Propionate [Flonase] 0 gm NASBOTH QAM Loratadine [Claritin] 10 mg PO QAM 09/15/18 09:35 Chest 1V Frontal [CR] Urgent 09/15/18 10:35 Pantoprazole [ProTONIX] 40 mg PO ACBREAKFAST 09/16/18 05:11 BMP [BASIC METABOLIC PANEL,BMP] [CHEM] AM CBC WITH AUTO DIFF [HEME] AM 09/17/18 05:11 BMP [BASIC METABOLIC PANEL,BMP] [CHEM] AM CBC WITH AUTO DIFF [HEME] AM - Plan Plan:: 78 yo male admitted for pneumonia. 1. Healthcare associated Pneumonia: Continue treating with broad spectrum antibiotics with Zosyn and Azithromycin. Discontinue Vancomycin. Cultures no growth. Repeat CXR stable. Will consult ST to evaluate swallowing. 2. Mildly elevated troponin: will continue to trend. Likely ischemic demand from hypotension 3. Hyponatremia: Stable. will continue hold HCTZ 4. Hypokalemia: replacing with PO KCL today, will recheck. Magnesium 1.7, replace with 2 gm IV today 5. Anemia: Hgb 9.8 today. Appears improved. Monitor. 6. Weakness: Doesn't ambulate much at [place] will consult PT for strengthening. VTE prophylaxis: SCDs, reports possible blood in stool will hold off on Heparin and order Occult stool. Dispo: 2-3 days pending improvement
--- NOTE | 2018-09-15 10:41 | CR ---
HISTORY: Crackles. TECHNIQUE: One view of the chest. COMPARISON: 09/12/2018. FINDINGS: Right-sided Port-A-Cath with catheter tip terminating within the SVC. Cardiac size within normal limits. Shallow breath. No consolidation or acute pulmonary edema. Possible right midlung zone nodule laterally. This may been present previously. There is no pneumothorax or pleural effusion. Peripherally calcified or ossified process in the left periclavicular region is unchanged but of uncertain etiology. IMPRESSION: 1. Low lung volumes which exaggerate the bronchovascular markings. 2. No consolidation or acute pulmonary edema. 3. Question right midlung zone nodule as before. Dictated by Anil Mendoza MD @ 09/15/2018 10:39:34 AM Dictated by: Anil Mendoza MD @ 09/15/2018 10:39:37 (Electronically Signed)
[2018-09-15] MEDS ORDERED: Magnesium Sulfate/Water 2 GM in Premix Bag 1 BAG IV ONE (11:05)
[2018-09-15] MEDS ORDERED: Bisacodyl 10 MG Supp RECTAL PRN (13:53)
[2018-09-15] MEDS: Latanoprost 0.005% Ophth Soln 2.5 ML Bottle EYEBOTH SCH (21:00)
[2018-09-16] MEDS: Piperacillin/Tazobactam 3.375 GM in Sodium Chloride 0.9% 50 ML IV SCH ×3 (00:28→14:43)
[2018-09-16 06:31] LABS: CHLORIDE,CL 101 mmol/L (98-107); SODIUM,NA 133 mmol/L (136-148)
[2018-09-16] MEDS: Pantoprazole 40 MG Tab.CR PO SCH (06:55)
[2018-09-16] MEDS: Levothyroxine 25 MCG Tab PO SCH (06:55)
[2018-09-16] MEDS: oxyCODONE 5 MG Tab PO PRN (07:28)
[2018-09-16] MEDS ORDERED: Enoxaparin 40 MG/0.4 ML Syringe SUBCUT SCH (08:15)
[2018-09-16] MEDS: Metoprolol Tartrate 50 MG Tab PO SCH (09:26)
[2018-09-16] MEDS: Loratadine 10 MG Tab PO SCH (09:27)
[2018-09-16] MEDS: Meclizine 25 MG Tab PO SCH (09:27)
[2018-09-16] MEDS: Fluticasone Propionate Nasal Spray 16 GM Bottle NASBOTH SCH (09:28)
[2018-09-16] MEDS: Azithromycin 500 MG in Sodium Chloride 0.9% 250 ML IV SCH (09:34)
--- NOTE | 2018-09-16 11:34 | PCM.DCSUM1 ---
<Dickson Green - Last Filed: 09/16/18 11:35> Discharge Summary - Hospital Course Free Text/Narrative:: 78 y/o male with history of metastatic bladder cancer who presented from [facility] for dyspnea and hypotension. Patient was admitted for pneumonia. He was started on broad spectrum antibiotics which included zosyn, azithromycin and vancomycin. During this hospitalization, he was noted to be anemic with Hg 7.0. Hemoccult was negative. He was transfused 2 units PRBCs which brought his Hg up to 10.0. His dyspnea improved. In addition, he was started on supplemental oxygen requiring 2 L O2 NC. He was found to be aspirating and speech therapy was consulted which recommended NPO since he was silently aspirating. Findings were transmitted to the patient and his nephew who initially decided for barium swallow study but then declined it since the patient did not want to have it done. He wanted to eat regular food and understood that he is high risk for recurrent aspiration pneumonias and worsening pulmonary function. He wanted to go to [facility] on comfort care. He was discharged with Augmentin 875mg PO BID for 7 days and Morphine 5 mg PO Q2H PRN for pain, dyspnea. - Discharge Data Discharge Date: 09/16/18 Discharge Disposition: DC/Tfer to [facility] 03 Condition: Poor - Patient Summary/Data Consults: Consultations 09/15/18 09:43 Consult to Speech Language Pathology [MAITRE D' Evaluation and Treatment] [CONS] Routine 09/15/18 10:59 Consult to Physical Therapy [PT Evaluation and Treatment] [CONS] Routine - Patient Instructions Diet: Regular Diet as Tolerated Diet, Other: regular diet for comfort as tolerated Activity: As Tolerated Notify Provider of: Fever, Increased Pain, Swelling and Redness, Nausea and/or Vomiting - Discharge Plan *PRESCRIPTION DRUG MONITORING PROGRAM REVIEWED*: Not Applicable *COPY OF PRESCRIPTION DRUG MONITORING REPORT IN PATIENT LADAN: Not Applicable Prescriptions/Med Rec: Amoxicillin/Potassium Clav [Augmentin 875-125 Tablet] 1 each PO BID 7 Days #14 tablet Morphine [Morphine 20 MG/ML Soln] 5 mg PO Q2H PRN #10 ml PRN Reason: Pain Home Medications: Home Meds Triamterene/Hydrochlorothiazid [Triamterene-HCTZ 37.5-25 MG] 1 tab PO BID [History] Fish Oil/Toone-3 Fatty Acids [Fish Oil 1,000 MG] 1 cap PO BID 08/26/16 [History] Latanoprost [Xalatan 0.005% Ophth Soln] 1 drop EYEBOTH BEDTIME 08/26/16 [History ] Levothyroxine 25 mcg PO ACBREAKFAST 03/18/18 [History] Loratadine [Claritin] 10 mg PO QAM 07/18/18 [History] Meclizine [Antivert] 50 mg PO BID 07/18/18 [History] Metoprolol Tartrate 50 mg PO BID 07/18/18 [History] Ondansetron [Zofran] 8 mg PO Q8H PRN 07/18/18 [History] Potassium Chloride [Klor-Con 10] 20 meq PO QAM 07/18/18 [History] Prochlorperazine Maleate [Compazine] 10 mg PO TID PRN 07/18/18 [History] oxyCODONE 5 mg PO Q8H PRN #15 tab 07/20/18 [Rx] Acetaminophen [Tylenol] 325 mg PO Q4H PRN 09/12/18 [History] Cyclobenzaprine HCl 5 mg PO TID 09/12/18 [History] Fluticasone Propionate [Flonase] 2 spray NASBOTH QAM 09/12/18 [History] Magnesium Hydroxide [Milk of Magnesia] 30 ml PO Q24H PRN 09/12/18 [History] Menthol [Biofreeze] 1 applic TOP BEDTIME 09/12/18 [History] Montelukast [Singulair] 10 mg PO BEDTIME 09/12/18 [History] Ranitidine HCl [Heartburn Relief] 150 mg PO DAILY PRN 09/12/18 [History] Amoxicillin/Potassium Clav [Augmentin 875-125 Tablet] 1 each PO BID 7 Days #14 tablet 09/16/18 [Rx] Morphine [Morphine 20 MG/ML Soln] 5 mg PO Q2H PRN #10 ml 09/16/18 [Rx] Oxygen Therapy Mode: Nasal Cannula Oxygen Flow Rate (L/min): 2 Patient Handouts: Amoxicillin; Clavulanic Acid tablets, Morphine oral solution - Discharge Summary/Plan Comment DC Time >30 min.: No - Patient Data Vitals - Most Recent: Last Vital Signs Temp 36.9 C 09/16/18 07:05 Pulse 112 H 09/16/18 09:26 Resp 16 09/16/18 07:05 BP 107/73 09/16/18 09:26 Pulse Ox 92 L 09/16/18 07:05 Weight - Most Recent: 84.9 kg I&O - Last 24 hours: Intake & Output 09/15/18 09/16/18 09/16/18 22:59 06:59 14:59 Intake Total 700 550 Balance 700 550 Lab Results - Last 24 hrs: Laboratory Results - last 24 hr 09/15/18 09/16/18 09/16/18 Range/Units 13:00 05:40 05:40 WBC 4.76 (4.0-11.0) K/uL RBC 3.71 L (4.50-5.90) M/uL Hgb 10.3 L (13.0-17.0) g/dL Hct 30.9 L (38.0-50.0) % MCV 83.3 (80.0-98.0) fL MCH 27.8 (27.0-32.0) pg MCHC 33.3 (31.0-37.0) g/dL RDW Std Deviation 54.8 (28.0-62.0) fl RDW Coeff of [place] 18 H (11.0-15.0) % Plt Count 100 L (150-400) K/uL MPV 9.30 (7.40-12.00) fL Neut % (Auto) [employer] Lymph % (Auto) [employer] [place] % (Auto) [employer] Eos % (Auto) [employer] Baso % (Auto) [employer] Neut # (Auto) [employer] [place] Lymph # (Auto) [place] [place] # (Auto) [employer] [place] Eos # (Auto) [employer]ER Baso # (Auto) [employer] Add Manual Diff YES Neutrophils % (Manual) 71 (48.0-80.0) % Band Neutrophils % 12 % Lymphocytes % (Manual) 13 L (16.0-40.0) % Monocytes % (Manual) 3 (0.0-15.0) % Eosinophils % (Manual) 1 (0.0-7.0) % Nucleated RBC % 0.6 /100WBC Absolute Seg Neuts 3.4 (1.4-5.7) Band Neutrophils # 0.6 Lymphocytes # (Manual) 0.6 (0.6-2.4) Monocytes # (Manual) 0.1 (0.0-0.8) Eosinophils # (Manual) 0.0 (0.0-0.7) Basophils # (Manual) 0.0 (0.0-0.1) Nucleated RBCs # 0 K/uL Sodium 133 L (136-148) mmol/L Potassium 4.1 (3.5-5.1) mmol/L Chloride 101 (98-107) mmol/L Carbon Dioxide 27.2 (21.0-32.0) mmol/L BUN 16 (7.0-18.0) mg/dL Creatinine 0.4 L (0.8-1.3) mg/dL Est Cr Clr Drug Dosing 149.75 mL/min Estimated GFR (MDRD) > 60.0 ml/min Glucose 82 (74-106) mg/dL Calcium 6.7 L (8.5-10.1) mg/dL Vancomycin Trough 9.2 (5.0-10.0) ug/mL ELSY Results - Last 24 hrs: Microbiology 09/12/18 12:41 Aerobic Blood Culture - Preliminary Blood - Venous - Lab Draw NO GROWTH AFTER 3 DAYS Anaerobic Blood Culture - Final 09/12/18 12:23 Aerobic Blood Culture - Preliminary Blood - Venous NO GROWTH AFTER 3 DAYS Anaerobic Blood Culture - Final Med Orders - Current: Current Medications Albuterol/Ipratropium (Duoneb 3.0-0.5 Mg/3 Ml) 3 ml NEB Q4HRRT PRN PRN Reason: SOB/wheezing Last Admin: 09/14/18 15:19 Dose: 3 ml Bisacodyl (Dulcolax) 10 mg RECTAL DAILY PRN PRN Reason: Constipation Cyclobenzaprine HCl (Flexeril) 5 mg PO TID PRN PRN Reason: muscle spasms Enoxaparin Sodium (Lovenox) 40 mg SUBCUT Q24H [facility] Last Admin: 09/16/18 09:21 Dose: Not Given Fluticasone Propionate (Flonase) 0 gm NASBOTH QAM [facility] Last Admin: 09/16/18 09:28 Dose: 1 spray Piperacillin Sod/Tazobactam (Sod 3.375 gm/ Sodium Chloride) 50 mls @ 100 mls/ hr IV Q6H [facility] Last Admin: 09/16/18 06:55 Dose: 100 mls/hr Azithromycin 500 mg/ Sodium (Chloride) 250 mls @ 250 mls/hr IV Q24H [facility] Last Admin: 09/16/18 09:34 Dose: 250 mls/hr Latanoprost (Xalatan 0.005% Ophth Soln) 0 ml EYEBOTH BEDTIME [facility] Last Admin: 09/15/18 21:00 Dose: 1 drop Levothyroxine Sodium (Levothyroxine) 25 mcg PO ACBREAKFAST [facility] Last Admin: 09/16/18 06:55 Dose: 25 mcg Loratadine (Claritin) 10 mg PO QAM [facility] Last Admin: 09/16/18 09:27 Dose: 10 mg Magnesium Hydroxide (Milk Of Magnesia) 30 ml PO Q24H PRN PRN Reason: Constipation Meclizine HCl (Antivert) 50 mg PO BID [facility] Last Admin: 09/16/18 09:27 Dose: 50 mg Metoprolol Tartrate (Lopressor) 50 mg PO BID [facility] Last Admin: 09/16/18 09:26 Dose: Not Given Ondansetron HCl (Zofran) 8 mg PO Q8H PRN PRN Reason: Nausea/Vomiting Oxycodone HCl (Oxycodone) 5 mg PO Q8H PRN PRN Reason: Pain Last Admin: 09/16/18 07:28 Dose: 5 mg Pantoprazole Sodium (Protonix) 40 mg PO ACBREAKFAST [facility] Last Admin: 09/16/18 06:55 Dose: 40 mg Discontinued Medications Aspirin (Aspirin) 325 mg PO ONETIME ONE Stop: 09/13/18 01:06 Last Admin: 09/13/18 01:39 Dose: 325 mg Furosemide (Lasix) 20 mg IVPUSH ONCALL ONE Stop: 09/14/18 10:32 Last Admin: 09/14/18 15:11 Dose: 20 mg Furosemide (Lasix) Confirm Administered Dose 20 mg .ROUTE .STK-MED ONE Stop: 09/14/18 15:03 Last Admin: 09/14/18 15:07 Dose: Not Given Piperacillin Sod/Tazobactam (Sod 3.375 gm/ Sodium Chloride) 50 mls @ 100 mls/ hr IV ONETIME ONE Stop: 09/12/18 12:44 Last Admin: 09/12/18 12:30 Dose: 100 mls/hr Sodium Chloride (Normal Saline) 1,000 mls @ 125 mls/hr IV STAT [facility] Last Admin: 09/12/18 12:30 Dose: 125 mls/hr Vancomycin HCl 1 gm/ Sodium (Chloride) 250 mls @ 250 mls/hr IV ONETIME ONE Stop: 09/12/18 13:14 Last Admin: 09/12/18 13:19 Dose: Not Given Vancomycin HCl 1 gm/ Sodium (Chloride) 250 mls @ 250 mls/hr IV ONETIME ONE Stop: 09/12/18 13:59 Last Admin: 09/12/18 13:44 Dose: 250 mls/hr Sodium Chloride (Normal Saline) 1,000 mls @ 125 mls/hr IV ASDIRECTED [facility] Last Admin: 09/14/18 04:23 Dose: 125 mls/hr Vancomycin HCl 1 gm/ Sodium (Chloride) 250 mls @ 166 mls/hr IV Q12H [facility] Last Admin: 09/13/18 00:35 Dose: 166 mls/hr Azithromycin 500 mg/ Sodium (Chloride) 250 mls @ 250 mls/hr IV Q24H [facility] Last Admin: 09/13/18 21:45 Dose: 250 mls/hr Vancomycin HCl 1 gm/ Sodium (Chloride) 250 mls @ 166 mls/hr IV Q12H [facility] Last Admin: 09/15/18 14:44 Dose: Not Given Sodium Chloride (Normal Saline) 500 mls @ 999 mls/hr IV STAT [facility] Stop: 09/13/18 08:46 Magnesium Sulfate 2 gm/ Premix 50 mls @ 50 mls/hr IV ONETIME ONE Stop: 09/15/18 12:04 Last Admin: 09/15/18 12:09 Dose: 50 mls/hr Potassium Chloride (Klor-Con M20) 40 meq PO ONETIME ONE Stop: 09/12/18 18:12 Last Admin: 09/12/18 18:42 Dose: 40 meq Potassium Chloride (Klor-Con M20) 40 meq PO BID@0830,1200 [facility] Stop: 09/13/18 12:01 Last Admin: 09/13/18 12:49 Dose: 40 meq Potassium Chloride (Klor-Con 10) 40 meq PO TID@0900,1200,1700 [facility] Stop: 09/14/18 17:01 Last Admin: 09/14/18 17:58 Dose: 40 meq Potassium Chloride (Klor-Con 10) 40 meq PO TID@0830,1200,1700 [facility] Stop: 09/15/18 17:01 Last Admin: 09/15/18 16:58 Dose: 40 meq Vancomycin HCl (Pharmacy To Dose - Vancomycin) 1 dose .XX ASDIRECTED [facility] <Nicholas Temple - Last Filed: 09/17/18 19:28> Discharge Summary - Patient Summary/Data Consults: Consultations 09/15/18 09:43 Consult to Speech Language Pathology [MAITRE D' Evaluation and Treatment] [CONS] Routine 09/15/18 10:59 Consult to Physical Therapy [PT Evaluation and Treatment] [CONS] Routine - Patient Data Vitals - Most Recent: Last Vital Signs Temp 35.7 C 09/16/18 12:00 Pulse 111 H 09/16/18 12:00 Resp 22 H 09/16/18 12:00 BP 106/69 09/16/18 12:00 Pulse Ox 92 L 09/16/18 12:00 ELSY Results - Last 24 hrs: Microbiology 09/12/18 12:41 Aerobic Blood Culture - Final Blood - Venous - Lab Draw NO GROWTH AFTER 5 DAYS Anaerobic Blood Culture - Final 09/12/18 12:23 Aerobic Blood Culture - Final Blood - Venous NO GROWTH AFTER 5 DAYS Anaerobic Blood Culture - Final Med Orders - Current: Current Medications Discontinued Medications Albuterol/Ipratropium (Duoneb 3.0-0.5 Mg/3 Ml) 3 ml NEB Q4HRRT PRN PRN Reason: SOB/wheezing Last Admin: 09/14/18 15:19 Dose: 3 ml Aspirin (Aspirin) 325 mg PO ONETIME ONE Stop: 09/13/18 01:06 Last Admin: 09/13/18 01:39 Dose: 325 mg Bisacodyl (Dulcolax) 10 mg RECTAL DAILY PRN PRN Reason: Constipation Cyclobenzaprine HCl (Flexeril) 5 mg PO TID PRN PRN Reason: muscle spasms Enoxaparin Sodium (Lovenox) 40 mg SUBCUT Q24H [facility] Last Admin: 09/16/18 09:21 Dose: Not Given Fluticasone Propionate (Flonase) 0 gm NASBOTH QAM [facility] Last Admin: 09/16/18 09:28 Dose: 1 spray Furosemide (Lasix) 20 mg IVPUSH ONCALL ONE Stop: 09/14/18 10:32 Last Admin: 09/14/18 15:11 Dose: 20 mg Furosemide (Lasix) Confirm Administered Dose 20 mg .ROUTE .STK-MED ONE Stop: 09/14/18 15:03 Last Admin: 09/14/18 15:07 Dose: Not Given Heparin Sodium (Porcine) (Heparin Lock Flush 100 Units/Ml) 500 units FLUSH ASDIRECTED ONE Stop: 09/16/18 13:16 Last Admin: 09/16/18 13:48 Dose: 500 units Piperacillin Sod/Tazobactam (Sod 3.375 gm/ Sodium Chloride) 50 mls @ 100 mls/ hr IV ONETIME ONE Stop: 09/12/18 12:44 Last Admin: 09/12/18 12:30 Dose: 100 mls/hr Sodium Chloride (Normal Saline) 1,000 mls @ 125 mls/hr IV STAT [facility] Last Admin: 09/12/18 12:30 Dose: 125 mls/hr Vancomycin HCl 1 gm/ Sodium (Chloride) 250 mls @ 250 mls/hr IV ONETIME ONE Stop: 09/12/18 13:14 Last Admin: 09/12/18 13:19 Dose: Not Given Vancomycin HCl 1 gm/ Sodium (Chloride) 250 mls @ 250 mls/hr IV ONETIME ONE Stop: 09/12/18 13:59 Last Admin: 09/12/18 13:44 Dose: 250 mls/hr Sodium Chloride (Normal Saline) 1,000 mls @ 125 mls/hr IV ASDIRECTED [facility] Last Admin: 09/14/18 04:23 Dose: 125 mls/hr Piperacillin Sod/Tazobactam (Sod 3.375 gm/ Sodium Chloride) 50 mls @ 100 mls/ hr IV Q6H [facility] Last Admin: 09/16/18 14:43 Dose: Not Given Vancomycin HCl 1 gm/ Sodium (Chloride) 250 mls @ 166 mls/hr IV Q12H [facility] Last Admin: 09/13/18 00:35 Dose: 166 mls/hr Azithromycin 500 mg/ Sodium (Chloride) 250 mls @ 250 mls/hr IV Q24H [facility] Last Admin: 09/13/18 21:45 Dose: 250 mls/hr Vancomycin HCl 1 gm/ Sodium (Chloride) 250 mls @ 166 mls/hr IV Q12H [facility] Last Admin: 09/15/18 14:44 Dose: Not Given Sodium Chloride (Normal Saline) 500 mls @ 999 mls/hr IV STAT [facility] Stop: 09/13/18 08:46 Azithromycin 500 mg/ Sodium (Chloride) 250 mls @ 250 mls/hr IV Q24H [facility] Last Admin: 09/16/18 09:34 Dose: 250 mls/hr Magnesium Sulfate 2 gm/ Premix 50 mls @ 50 mls/hr IV ONETIME ONE Stop: 09/15/18 12:04 Last Admin: 09/15/18 12:09 Dose: 50 mls/hr Latanoprost (Xalatan 0.005% Ophth Soln) 0 ml EYEBOTH BEDTIME [facility] Last Admin: 09/15/18 21:00 Dose: 1 drop Levothyroxine Sodium (Levothyroxine) 25 mcg PO ACBREAKFAST [facility] Last Admin: 09/16/18 06:55 Dose: 25 mcg Loratadine (Claritin) 10 mg PO QAM [facility] Last Admin: 09/16/18 09:27 Dose: 10 mg Magnesium Hydroxide (Milk Of Magnesia) 30 ml PO Q24H PRN PRN Reason: Constipation Meclizine HCl (Antivert) 50 mg PO BID [facility] Last Admin: 09/16/18 09:27 Dose: 50 mg Metoprolol Tartrate (Lopressor) 50 mg PO BID [facility] Last Admin: 09/16/18 09:26 Dose: Not Given Ondansetron HCl (Zofran) 8 mg PO Q8H PRN PRN Reason: Nausea/Vomiting Oxycodone HCl (Oxycodone) 5 mg PO Q8H PRN PRN Reason: Pain Last Admin: 09/16/18 07:28 Dose: 5 mg Pantoprazole Sodium (Protonix) 40 mg PO ACBREAKFAST [facility] Last Admin: 09/16/18 06:55 Dose: 40 mg Potassium Chloride (Klor-Con M20) 40 meq PO ONETIME ONE Stop: 09/12/18 18:12 Last Admin: 09/12/18 18:42 Dose: 40 meq Potassium Chloride (Klor-Con M20) 40 meq PO BID@0830,1200 [facility] Stop: 09/13/18 12:01 Last Admin: 09/13/18 12:49 Dose: 40 meq Potassium Chloride (Klor-Con 10) 40 meq PO TID@0900,1200,1700 [facility] Stop: 09/14/18 17:01 Last Admin: 09/14/18 17:58 Dose: 40 meq Potassium Chloride (Klor-Con 10) 40 meq PO TID@0830,1200,1700 [facility] Stop: 09/15/18 17:01 Last Admin: 09/15/18 16:58 Dose: 40 meq Vancomycin HCl (Pharmacy To Dose - Vancomycin) 1 dose .XX ASDIRECTED [facility] - Free Text/Narrative Note: I have examined the patient. I have discussed findings and treatment plan with the resident. I agree with the assessment and plan outlined in the following resident's note.
[2018-09-16 12:41] VITALS: BP 106/69
== END 2018-09-16 13:40 | DRG 194 ==
LOC: MW.ED 11:47 → MW.MS 16:35 → UNDOADMOB 16:44
PROVIDERS: ADMIT Internal Medicine; ATTEND Internal Medicine
PROC: 30233N1 Transfusion of Nonautologous Red Blood Cells into Peripheral Vein, Percutaneous Approach (ICD-10-PCS; principal; 2018-09-15)
DX: J18.9 Pneumonia, unspecified organism (principal); E87.1 Hypo-osmolality and hyponatremia; C79.51 Secondary malignant neoplasm of bone; N39.0 Urinary tract infection, site not specified; I95.9 Hypotension, unspecified; R65.10 Systemic inflammatory response syndrome (SIRS) of non-infectious origin without acute organ dysfunction; J30.9 Allergic rhinitis, unspecified; R00.0 Tachycardia, unspecified; R50.9 Fever, unspecified; H26.9 Unspecified cataract; M19.91 Primary osteoarthritis, unspecified site; Z79.890 Hormone replacement therapy; Z79.899 Other long term (current) drug therapy; E87.6 Hypokalemia; E86.0 Dehydration; C67.9 Malignant neoplasm of bladder, unspecified; G47.33 Obstructive sleep apnea (adult) (pediatric); D64.9 Anemia, unspecified; H40.9 Unspecified glaucoma; Z90.49 Acquired absence of other specified parts of digestive tract; I10 Essential (primary) hypertension; Z68.27 Body mass index [BMI] 27.0-27.9, adult; G47.30 Sleep apnea, unspecified; K21.9 Gastro-esophageal reflux disease without esophagitis; M19.90 Unspecified osteoarthritis, unspecified site; M54.9 Dorsalgia, unspecified; G89.29 Other chronic pain; E66.9 Obesity, unspecified; Z85.51 Personal history of malignant neoplasm of bladder; Z87.891 Personal history of nicotine dependence
CPT/HCPCS: 36415; 71045; 74176; 80053; 81001; 83605; 84484; 85025; 87040 ×2; 87086; 96361; 96365; 96367; 99285; J2543; J3370; J7040; J7050 ×2; 36430; 80048; 80202; 82040; 82272; 83735; 86850; 86900; 86901; 86920; 86921; 86922; 92610-GN; 93005; 94640; A4217; A9270-GY; J0456; J1642; J3475; J7620-GY; P9016